=== PATIENT | female | born 1965 | race Caucasian/White ===

== ENCOUNTER 2020-03-31 13:06 | Emergency (ER) | payer MEDICAID, SELFPAY ==
[2020-03-31 13:07] VITALS: BP 134/96; PULSE 103; RESP 21; O2SAT 96; BMI 25.5
--- NOTE | 2020-03-31 13:41 | HMH.EDUTC ---
[facility] [place] Impression: Abnormal vaginal bleeding in postmenopausal patient Disposition: Home, Self-Care Condition on Discharge: Good Instructions: DI for Abnormal Uterine Bleeding Additional Instructions: You have an appointment with Dr. Costello (gynecology) on April 09 at 3 pm. Follow up with your regular doctor also. If you don't have a regular doctor then we will give you a list of doctors that are taking new patients. GO TO THE ER FOR ANY WORSENING PAIN, BLEEDING OR OTHER SYMPTOMS Prescriptions: Ondansetron [Zofran 4mg ODT] 4 mg PO Q8HP PRN #10 tab.rapdis PRN Reason: Nausea Transmission Status: Received by [id number] Doxycycline Hyclate [Doxycycline 100mg Capsule] 100 mg PO BID 10 Days #20 cap Transmission Status: Received by [id number] Referrals: Provider,Referral, [Primary Care Provider] - Time of Disposition: 14:23 Medical Decision Making - Medical Records Medical records reviewed: No: I reviewed the patient's medical records. - Wisam Inquiry Pt receiving controlled substance: No Vital Signs: 03/31/20 13:07 03/31/20 14:34 Temperature 98.0 F Temperature Source Oral Pulse Rate 103 H Pulse Rate [Radial] 103 H Respiratory Rate 21 21 Blood Pressure 134/96 H Blood Pressure [Right Arm] 134/96 H Blood Pressure Mean [Right Arm] 108 Blood Pressure Source Automatic Cuff Blood Pressure Source [Right Arm] Automatic Cuff Blood Pressure Position Sitting Blood Pressure Position [Right Arm] Sitting 02 Sat by Pulse Oximetry 96 Oxygen Delivery Method Room Air Room Air - Lab Data Lab results reviewed: Yes: I reviewed the patient's lab results. Lab Results 03/31/20 13:31: Urine Color Dark yellow, Urine Appearance Cloudy, Urine pH 5.5, Ur Specific [place] 1.030, Urine Protein 1+, Urine Glucose (UA) Negative, Urine Ketones Negative, Urine Blood Negative, Urine Nitrate Negative, Urine Bilirubin 1+ A, Urine Urobilinogen 0.2, Ur Leukocyte Esterase Negative 03/31/20 13:38: WBC 11.4 H, RBC 5.39, Hgb 13.8, Hct 42.0, MCV 78.0 L, MCH 25.6 L, MCHC 32.8, RDW 13.3, Plt Count 470 H, MPV 7.7, Neut % (Auto) 76.3, Lymph % (Auto) 18.7, [place] % (Auto) 3.4, Eos % (Auto) 1.4, Baso % (Auto) 0.3, Neut # (Auto) 8.7 H, Lymph # (Auto) 2.1, [place] # (Auto) 0.4, Eos # (Auto) 0.2, Baso # (Auto) 0.0 03/31/20 13:38: PT 9.8, INR 0.96, APTT 24.9 03/31/20 13:38: Sodium 138, Potassium 3.7, Chloride 103, Carbon Dioxide 28, Anion Gap 10.7, BUN 10, Creatinine 0.60, Estimated Creat Clear 114, Estimated GFR 104, Est GFR ( Amer) 126, Glucose 112 H, Calcium 9.8, Total Bilirubin 0.3, AST 29, ALT 15, Alkaline Phosphatase 98, Total Protein 8.0, Albumin 4.5, Globulin 3.5 H, Albumin/Globulin Ratio 1.3, TSH 0.73, HCG, Quant < 2 03/31/20 13:38: Free T4 1.19 Result diagrams: 03/31/20 13:38 03/31/20 13:38 Orders (Tests/Meds): ED MEDICATIONS Discontinued Medications Generic Name Dose Route Start Last Admin Trade Name Tariq PRN Reason Stop Dose Admin Ketorolac Tromethamine 30 mg 03/31/20 14:14 03/31/20 14:18 Toradol 60mg/2ml Vial IM 03/31/20 14:15 30 mg ONCE ONE Administration [facility] [place] - General Stated complaint: bleeding and stomach and back pain Time Seen by Provider: 03/31/20 13:45 Mode of Arrival: Ambulatory Source of Information: Patient Limitations: No Limitations Description of Symptoms (Recalled from Triage Doc. by RN): States that she began bleeding, cramping, lower back and abdomen pain. HEENT Symptoms (Recalled from RN notes): No Resp Symptoms (Recalled from RN notes): No Skin Symptoms (Recalled from RN notes): No MS Symptoms (Recalled from RN notes): No Functional Status (Recalled from RN notes): wnl - History of Present Illness Provider Complaint: She reports that 3 days ago she began having vaginal bleeding. She states that she has not had a period or any vaginal bleeding in the past 3 years. She believes that she went thru menopause then. She has
[2020-03-31 13:51] LABS: Basophils % 0.3 % (0.1-2.0); Eosinophils # 0.2 K/mm3 (0.0-0.4); Eosinophils % 1.4 % (0.1-12.0); Hemoglobin 13.8 g/dL (12.2-16.2); Lymphocytes # 2.1 K/mm3 (0.7-4.5); Lymphocytes % 18.7 % (10-50); Mean Corpuscular HGB Conc 32.8 g/dL (31.8-35.4); Mean Corpuscular Hemoglobin 25.6 pg (27.0-31.2); Mean Platelet Volume 7.7 fl (7.4-10.4); Monocytes # 0.4 K/mm3 (0.1-1.0); Monocytes % 3.4 % (1.7-9.3); Neutrophils # 8.7 K/mm3 (1.8-7.8); Neutrophils % 76.3 % (37.0-80.0); Platelet Count 470 K/mm3 (142-424); Red Blood Count 5.39 M/mm3 (4.20-5.40); Red Cell Distribution Width 13.3 % (11.5-17.5); White Blood Count 11.4 K/mm3 (4.8-10.8)
[2020-03-31 13:58] LABS: Alanine Aminotransferase 15 U/L (12-78); Albumin Level 4.5 g/dl (3.5-5.0); Albumin/Globulin Ratio 1.3 (1.1-1.8); Alkaline Phosphatase 98 U/L (38-126); Anion Gap 10.7 mEq/L (5-15); Aspartate Amino Transferase 29 U/L (14-36); Bilirubin,Total 0.3 mg/dl (0.2-1.3); Blood Urea Nitrogen 10 mg/dl (7-17); Calcium 9.8 mg/dl (8.4-10.2); Carbon Dioxide 28 mmol/L (22.0-30.0); Chloride 103 mmol/L (98-107); Creatinine Clearance Estimated 114 mL/min (50-200); Estimated Glomerular Filt Rate 104 ml/min (>60); GFR (African American) 126 ML/MIN (>60); Globulin 3.5 g/dL (1.3-3.2); Glucose 112 mg/dl (74-100); Potassium 3.7 mmoL/L (3.5-5.1); Sodium 138 mmol/L (136-145)
[2020-03-31 14:08] LABS: INR 0.96 (0.9-1.1); Prothrombin Time 9.8 seconds (9.4-11.8)
[2020-03-31 14:09] LABS: Activated Partial Thrombo Time 24.9 seconds (23.6-34.0)
[2020-03-31 14:17] LABS: HCG,Quantitative < 2 mIU/ml (0-5.42)
[2020-03-31 14:28] LABS: Free T4 (Free Thyroxine) 1.19 ng/dl (0.78-2.19)
[2020-03-31 14:29] LABS: Thyroid Stimulating Hormone 0.73 uIU/mL (0.465-4.68)
[2020-03-31 14:34] VITALS: BP 134/96; PULSE 103; RESP 21; TEMP 36.7; O2SAT 96
[2020-03-31 14:54] LABS: Apearance,Urine Cloudy (Clear); Color,Urine Dark Yellow (Yellow); PH,Urine 5.5 (5.0-8.5)
[2020-03-31 14:55] LABS: Bilirubin,Urine 1+ (Negative); Blood, Urine Negative (Negative); Glucose,Urine (UA) Negative (Negative); Ketones,Urine Negative (Negative); Protein,Urine 1+ (Negative); UTC Leukocyte Esterase,Urine Negative (Negative); UTC Nitrate,Urine Negative (Negative); Urobilinogen,Urine 0.2 EU/dl (0.2)
[2020-04-02 23:12] LABS: Neisseria gonorrhoeae, NAA Negative (Negative)
== END 2020-03-31 14:35 | disposition home or self-care (01) ==
PROVIDERS: Emergency Provider Nurse Practitioner Family
DX: N95.0 Postmenopausal bleeding (principal)
CPT/HCPCS: 80053; 81003; 84439; 84443; 84702; 85025; 85610; 85730; 87491; 87591; 96372; 99202

== ENCOUNTER → 2020-05-13 12:51 | Outpatient (CLI) | payer MEDICAID, SELFPAY ==
--- NOTE | 2020-05-13 12:52 | MM_ITS ---
PROCEDURE: MM DIG SCREENING MAMM BI W/CAD Digital Breast Tomosynthesis Included CLINICAL INDICATION: screening There is no personal or family history of breast cancer. COMPARISON: The patient had previous mammograms more than 10 years ago and they are not available for review TECHNIQUE: Standard CC and MLO images and 3D Tomosynthesis was obtained. R2 CAD reviewed. FINDINGS: Moderate diffuse fibroglandular densities are seen in both breasts and the findings of bilateral and symmetrical. There is a pacemaker device projecting over the axilla of the left breast. There is no suspicious lesion in either breast and no suspicious microcalcifications. IMPRESSION: Moderate breast density with no suspicious lesions seen BI-RAD Category: 2 Benign Finding(s) FOLLOW-UP: 1YR 1 Year Follow-up (A letter has been sent to the patient regarding results of the study.) Dictated by: Dr. Kyle Shafer MD 05/15/2020 13:[address] Kyle Shafer MD in [place] 05/15/2020 13:23
== END ==
PROVIDERS: PCP Emergency Medicine; Visit Provider Emergency Medicine
DX: Z12.31 Encounter for screening mammogram for malignant neoplasm of breast (principal)
CPT/HCPCS: 77063; 77067

== ENCOUNTER → 2020-06-10 13:19 | Outpatient (CLI) | payer MEDICAID, SELFPAY ==
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
== END ==
PROVIDERS: PCP Emergency Medicine; Visit Provider Orthopaedic Surgery
DX: M25.562 Pain in left knee (principal)
CPT/HCPCS: 73564

== ENCOUNTER 2020-06-22 09:31 | Emergency (ER) | payer MEDICAID, SELFPAY ==
[2020-06-22 09:32] VITALS: BP 167/93; PULSE 86; RESP 18; TEMP 36.9; O2SAT 98; BMI 24.9
--- NOTE | 2020-06-22 09:48 | XR_ITS ---
PROCEDURE: XR CHEST 2V CLINICAL HISTORY: fever Fever and weakness COMPARISON: CR CXR CHEST(2 VIEWS-NOT PORTABLE) from 01/13/2015 FINDINGS: The cardiomediastinal silhouette and pulmonary vascularity are within normal limits. Bipolar pacemaker is present from left subclavian approach. Lungs are clear. There is an SVC filter present. No acute bony abnormalities. IMPRESSION: No acute findings. Dictated b Rubens Wallace MD 06/22/2020 10:58 Rubens Wallace MD in [place] 06/22/2020 10:58
--- NOTE | 2020-06-22 09:59 | CT_ITS ---
PROCEDURE: CT HEAD/BRAIN WO CON CLINICAL INDICATION: syncope COMPARISON: No exams were available for comparison TECHNIQUE: Axial images obtained. All CT scans at the facility use one or more dose reduction, viz: automated exposure control, ma/kV adjustment per patient size (including targeted exams where dose is matched to indication, i.e. head), or iterative reconstruction technique. FINDINGS: No midline shift, mass effect, intracranial hemorrhage, hydrocephalus, or extra-axial fluid collection is evident. Artifact is present in the right occipital region and temporal area from patient's earring for which she was unable to remove. The calvarium has an unremarkable appearance. No mastoid effusion. Mucosal thickening involves the ethmoid sinus on the left and the right aspect of the sphenoid sinus. IMPRESSION: No acute intracranial finding. Sinus disease Dictated b Rubens Wallace MD 06/22/2020 10:47 Rubens Wallace MD in [place] 06/22/2020 10:47
--- NOTE | 2020-06-22 10:03 | PC.NURSE ---
notified rad of ct order, spoke with lavonne
[2020-06-22 10:23] LABS: Microscopic, Urine URINE MICROSCOPIC (MICROSCOPIC)
[2020-06-22 10:25] LABS: Basophils % 0.7 % (0.1-2.0); Eosinophils # 0.2 K/mm3 (0.0-0.4); Eosinophils % 3.7 % (0.1-12.0); Hematocrit 43.6 % (37.0-47.0); Lymphocytes # 1.8 K/mm3 (0.7-4.5); Lymphocytes % 28.4 % (10-50); Mean Corpuscular HGB Conc 34.3 g/dL (31.8-35.4); Mean Corpuscular Hemoglobin 26.6 pg (27.0-31.2); Mean Corpuscular Volume 77.4 fl (81-99); Mean Platelet Volume 7.4 fl (7.4-10.4); Monocytes # 0.3 K/mm3 (0.1-1.0); Monocytes % 4.2 % (1.7-9.3); Neutrophils # 4.1 K/mm3 (1.8-7.8); Platelet Count 379 K/mm3 (142-424); Red Blood Count 5.63 M/mm3 (4.20-5.40); Red Cell Distribution Width 13.3 % (11.5-17.5); White Blood Count 6.4 K/mm3 (4.8-10.8)
[2020-06-22 10:27] LABS: Appearance,Urine SL CLOUDY (Clear); Bilirubin,Urine Negative (Negative); Blood, Urine Negative (Negative); Color,Urine YELLOW (Yellow); Glucose,Urine (UA) Negative (Negative); Ketones,Urine Negative (Negative); Leukocyte Esterase,Urine Negative (Negative); Nitrate,Urine Negative (Negative); Protein,Urine Negative (Negative); Specific Gravity, Urine 1.025 (1.005-1.030); Urobilinogen,Urine 0.2 EU/dl (0.2)
[2020-06-22 10:29] LABS: Alanine Aminotransferase 36 U/L (12-78); Albumin Level 4.9 g/dl (3.5-5.0); Albumin/Globulin Ratio 1.3 (1.1-1.8); Alkaline Phosphatase 118 U/L (38-126); Anion Gap 16.5 mEq/L (5-15); Aspartate Amino Transferase 40 U/L (14-36); Bilirubin,Total 0.8 mg/dl (0.2-1.3); Blood Urea Nitrogen 15 mg/dl (7-17); Calcium 10.2 mg/dl (8.4-10.2); Carbon Dioxide 27 mmol/L (22.0-30.0); Chloride 100 mmol/L (98-107); Creatinine Clearance Estimated 111 mL/min (50-200); Estimated Glomerular Filt Rate 104 ml/min (>60); GFR (African American) 126 ML/MIN (>60); Globulin 3.8 g/dL (1.3-3.2); Glucose 139 mg/dl (74-100); Lactic Acid 1.5 mmol/L (0.7-2.1); Potassium 3.5 mmoL/L (3.5-5.1); Sodium 140 mmol/L (136-145); Total Protein,Serum 8.7 g/dl (6.3-8.2)
--- NOTE | 2020-06-22 10:29 | HMH.EDNVD ---
ED Disposition Clinical Impression: Gastroenteritis Disposition: Home, Self-Care Condition on Discharge: Good Instructions: DI for Diarrhea and Traveler's Diarrhea -- Adult, DI for Diarrhea and Traveler's Diarrhea -- Child, DI for Nausea -- Adult, DI for Nausea -- Child Referrals: Darrell Magallon MD [Primary Care Provider] - - Critical Care Critical Care Time: No Attestation: On 06/22/20, the high probability of a clinically significant, sudden or life threatening deterioration of the following system(s) required my full and direct attention, intervention and personal management. The time I documented below is in addition to time spent performing reported procedures but includes the following listed in this critical care notation. Medical Decision Making - Medical Records Medical records reviewed: Yes: I reviewed the patient's medical records. - Wisam Inquiry Pt receiving controlled substance: No Vital Signs: 06/22/20 09:32 Temperature 98.4 F Temperature Source Oral Pulse Rate [Right] 86 Respiratory Rate 18 Blood Pressure [Right Arm] 167/93 H Blood Pressure Mean [Right Arm] 117 02 Sat by Pulse Oximetry 98 - Lab Data Lab results reviewed: Yes: I reviewed the patient's lab results. Lab Results 06/22/20 10:10: WBC 6.4, RBC 5.63 H, Hgb 15.0, Hct 43.6, MCV 77.4 L, MCH 26.6 L, MCHC 34.3, RDW 13.3, Plt Count 379, MPV 7.4, Neut % (Auto) 63.0, Lymph % (Auto) 28.4, [place] % (Auto) 4.2, Eos % (Auto) 3.7, Baso % (Auto) 0.7, Neut # (Auto) 4.1, Lymph # (Auto) 1.8, [place] # (Auto) 0.3, Eos # (Auto) 0.2, Baso # (Auto) 0.0 06/22/20 10:10: Sodium 140, Potassium 3.5, Chloride 100, Carbon Dioxide 27, Anion Gap 16.5 H, BUN 15, Creatinine 0.60, Estimated Creat Clear 111, Estimated GFR 104, Est GFR ( Amer) 126, Glucose 139 H, Calcium 10.2, Total Bilirubin 0.8, AST 40 H, ALT 36, Alkaline Phosphatase 118, Total Protein 8.7 H, Albumin 4.9, Globulin 3.8 H, Albumin/Globulin Ratio 1.3 06/22/20 10:10: Lactate 1.5 06/22/20 10:13: Urine Color Yellow, Urine Appearance Sl cloudy, Urine pH 6.0, Ur Specific [place] 1.025, Urine Protein Negative, Urine Glucose (UA) Negative, Urine Ketones Negative, Urine Blood Negative, Urine Nitrate Negative, Urine Bilirubin Negative, Urine Urobilinogen 0.2, Ur Leukocyte Esterase Negative, Urine RBC Occasional, Urine WBC Occasional, Ur Squamous Epith Cells 10-20, Urine Bacteria Trace, Urine Mucus 1+ Result diagrams: 06/22/20 10:10 06/22/20 10:10 Orders (Tests/Meds): ED MEDICATIONS Discontinued Medications Generic Name Dose Route Start Last Admin Trade Name Freq PRN Reason Stop Dose Admin Sodium Chloride 1,000 mls @ 999 mls/hr 06/22/20 10:00 06/22/20 10:19 Sod Chlor 0.9% 1000ml Bag IV 06/22/20 11:00 999 mls/hr .Q1H1M MARLON Administration Ondansetron HCl 4 mg 06/22/20 09:48 06/22/20 10:19 Zofran 4mg/2ml Vial IV 06/22/20 09:49 4 mg ONCE ONE Administration ORDERS Category Date Time Status Coronavirus 19 Swab (OUTPT) Routine Lab 06/22/20 10:10 Received Blood Culture Stat Micro 06/22/20 10:10 Received Nausea/Vomiting/Diarrhea HPI - General Chief complaint: Nausea/Vomiting/Diarrhea Stated complaint: fever vomiting Time Seen by Provider: 06/22/20 10:29 Mode of Arrival: Ambulatory Source of Information: Patient Limitations: No Limitations Description of Symptoms (Recalled from ER Triage Doc. by RN): C/O NVD, fever, body aches, weakness and fatigued for 3 days. - History of Present Illness HPI Narrative: 54-year-old female presents with headache nausea and vomiting diarrhea for 2 days and also body aches and low-grade fever. Patient denies any other acute symptoms. Patient states this headache feels like a headache that she is had from previous stroke. But the body aches nausea vomiting diarrhea or something that is new. Patient denies any other acute symptoms. Also denies any neurological deficits also states that 3 days ago she did get hepatitis A vaccin
[2020-06-22 10:40] LABS: Bacteria,Urine Trace /lpf; Mucus,Urine 1+ /lpf; RBC,Urine Occasional #/hpf (0-3); WBC,Urine Occasional #/hpf (0-3)
[2020-06-22 11:28] VITALS: BP 133/89; PULSE 92; RESP 18; TEMP 36.6; O2SAT 100
== END 2020-06-22 11:29 | disposition home or self-care (01) ==
PROVIDERS: Emergency Provider Family Medicine; PCP Emergency Medicine
DX: K52.9 Noninfective gastroenteritis and colitis, unspecified (principal); Z95.0 Presence of cardiac pacemaker; Z88.5 Allergy status to narcotic agent; G43.709 Chronic migraine without aura, not intractable, without status migrainosus; Z87.891 Personal history of nicotine dependence
CPT/HCPCS: 70450; 71046; 80053; 81001; 83605; 85025; 87040; 96365; 96375; 99284; J2405; U0003

== ENCOUNTER 2020-07-28 20:33 | Emergency (ER) | payer MEDICAID, SELFPAY ==
[2020-07-28 20:33] VITALS: BP 127/84; PULSE 84; RESP 16; TEMP 36.8; O2SAT 100; BMI 24.7
--- NOTE | 2020-07-28 20:48 | XR_ITS ---
PROCEDURE: XR CHEST 2V CLINICAL HISTORY: SOA Shortness of air COMPARISON: CR CXR CHEST(2 VIEWS-NOT PORTABLE) from 01/13/2015 CR XR CHEST 2V from 06/22/[address] ANGIO CHEST from 07/28/2020 FINDINGS: Normal heart size. Bipolar pacemaker is present from left subclavian approach. There is a vascular stent overlying the SVC in the right hilar region. Minimal atelectatic changes noted in the lung bases. Upper lobes are clear. No acute bony abnormalities. IMPRESSION: Minimal atelectatic changes in the lung bases otherwise negative Dictated by: Rubens Wallace MD 07/29/2020 06:26 Rubens Wallace MD in [place] 07/29/2020 06:26
--- NOTE | 2020-07-28 20:48 | CT_ITS ---
PROCEDURE: CT ANGIO CHEST CLINCIAL INDICATION: right sided chest pain Right-sided chest pain worse with breathing COMPARISON: No exams were available for comparison TECHNIQUE: IV Contrast: 70ML OPTIRAY 350 Axial images obtained with sagittal and coronal reformats. All CT scans at the facility use one or more dose reduction, viz: automated exposure control, ma/kV adjustment per patient size (including targeted exams where dose is matched to indication, i.e. head), or iterative reconstruction technique. FINDINGS: No evidence of aortic aneurysm or dissection. No evidence of pulmonary embolus. There is a vascular stent in the right superior vena cava which appears patent. Pacemaker is present from left subclavian approach. There it appears to be at an anomalous vessel in the left apex medially traversing posterior to the descending thoracic aorta and could be due to a prominent collateral vein. CT a chest with delayed images may confirm. There are atelectatic changes or scarring in the left lower lobe. Minimal atelectasis right lower lobe. No acute bony findings. IMPRESSION: 1. No evidence of pulmonary embolus or aortic aneurysm or dissection. 2. Superior vena cava stent in place. 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 Left lower lobe atelectatic change versus scarring Dictated by: Rubens Wallace MD 07/29/2020 06:42 Rubens Wallace MD in [place] 07/29/2020 06:42
--- NOTE | 2020-07-28 20:57 | ECG_ITS ---
APPROVED REPORT Exam: Resting ECG HR:76 bpm ECG Measurements Heart Rate 76 AXES MI 184 P 53 QRSd 78 QRS 4 QT 366 T 21 QTc 411 <Conclusion> Normal sinus rhythm Possible Left atrial enlargement Incomplete RBBB Borderline ECG Electronically signed by : Caleb Abernathy, 07/31/2020 13:05:33
[2020-07-28 21:00] VITALS: BP 132/84; PULSE 89; RESP 17; O2SAT 99
[2020-07-28 21:01] LABS: Basophils # 0.1 K/mm3 (0-0.2); Basophils % 0.5 % (0.1-2.0); Eosinophils # 0.3 K/mm3 (0.0-0.4); Eosinophils % 2.4 % (0.1-12.0); Hematocrit 38.1 % (37.0-47.0); Hemoglobin 12.7 g/dL (12.2-16.2); Lymphocytes # 1.7 K/mm3 (0.7-4.5); Lymphocytes % 15.6 % (10-50); Mean Corpuscular HGB Conc 33.4 g/dL (31.8-35.4); Mean Corpuscular Volume 80.8 fl (81-99); Mean Platelet Volume 7.6 fl (7.4-10.4); Monocytes # 0.6 K/mm3 (0.1-1.0); Monocytes % 5.4 % (1.7-9.3); Neutrophils # 8.1 K/mm3 (1.8-7.8); Platelet Count 371 K/mm3 (142-424); Red Blood Count 4.72 M/mm3 (4.20-5.40); Red Cell Distribution Width 13.6 % (11.5-17.5); White Blood Count 10.7 K/mm3 (4.8-10.8)
[2020-07-28 21:05] LABS: Chloride 103 mmol/L (98-107); Potassium 3.3 mmoL/L (3.5-5.1); Sodium 144 mmol/L (136-145)
[2020-07-28 21:08] LABS: Alanine Aminotransferase 19 U/L (12-78); Albumin Level 4.4 g/dl (3.5-5.0); Albumin/Globulin Ratio 1.3 (1.1-1.8); Alkaline Phosphatase 120 U/L (38-126); Anion Gap 13.3 mEq/L (5-15); Aspartate Amino Transferase 30 U/L (14-36); Bilirubin,Total 0.4 mg/dl (0.2-1.3); Blood Urea Nitrogen 10 mg/dl (7-17); Carbon Dioxide 31 mmol/L (22.0-30.0); Creatinine Clearance Estimated 106 mL/min (50-200); Estimated Glomerular Filt Rate 104 ml/min (>60); GFR (African American) 126 ML/MIN (>60); Globulin 3.5 g/dL (1.3-3.2); Total Protein,Serum 7.9 g/dl (6.3-8.2)
[2020-07-28 21:09] LABS: Calcium 9.4 mg/dl (8.4-10.2); Glucose 120 mg/dl (74-100)
--- NOTE | 2020-07-28 21:13 | HMH.EDGENADL ---
ED Disposition Clinical Impression: Pleurisy Disposition: Home, Self-Care Condition on Discharge: Good Instructions: DI for Pleurisy Additional Instructions: use meds and see pcp for follow up Prescriptions: levoFLOXacin [Levaquin 500mg tab] 500 mg PO DAILY #7 tab Transmission Status: Pending to [facility] predniSONE [Prednisone 20mg Tab] 20 mg PO BID #10 tab Transmission Status: Pending to [facility] Referrals: Darrell Magallon MD [Primary Care Provider] - - Critical Care Critical Care Time: No Attestation: On 07/28/20, the high probability of a clinically significant, sudden or life threatening deterioration of the following system(s) required my full and direct attention, intervention and personal management. The time I documented below is in addition to time spent performing reported procedures but includes the following listed in this critical care notation. Medical Decision Making - Medical Records Medical records reviewed: Yes: I reviewed the patient's medical records. - Wisam Inquiry Pt receiving controlled substance: No Vital Signs: 07/28/20 20:33 07/28/20 21:00 07/28/20 21:49 Temperature 98.2 F Temperature Source Oral Pulse Rate [Right] 84 89 74 Respiratory Rate 16 17 16 Blood Pressure [Right Arm] 127/84 132/84 157/85 H Blood Pressure Mean [Right Arm] 98 100 109 Blood Pressure Source [Right Arm] Automatic Cuff Automatic Cuff Automatic Cuff Blood Pressure Position [Right Arm] Sitting Supine Sitting 02 Sat by Pulse Oximetry 100 99 98 Oxygen Delivery Method Room Air Room Air Room Air - Lab Data Lab results reviewed: Yes: I reviewed the patient's lab results. Lab Results 07/28/20 20:50: WBC 10.7, RBC 4.72, Hgb 12.7, Hct 38.1, MCV 80.8 L, MCH 27.0, MCHC 33.4, RDW 13.6, Plt Count 371, MPV 7.6, Neut % (Auto) 76.0, Lymph % (Auto) 15.6, [place] % (Auto) 5.4, Eos % (Auto) 2.4, Baso % (Auto) 0.5, Neut # (Auto) 8.1 H, Lymph # (Auto) 1.7, [place] # (Auto) 0.6, Eos # (Auto) 0.3, Baso # (Auto) 0.1 07/28/20 20:50: Sodium 144, Potassium 3.3 L, Chloride 103, Carbon Dioxide 31 H, Anion Gap 13.3, BUN 10, Creatinine 0.60, Estimated Creat Clear 106, Estimated GFR 104, Est GFR ( Amer) 126, Glucose 120 H, Calcium 9.4, Total Bilirubin 0.4, AST 30, ALT 19, Alkaline Phosphatase 120, Troponin I < 0.01, Total Protein 7.9, Albumin 4.4, Globulin 3.5 H, Albumin/Globulin Ratio 1.3 Result diagrams: 07/28/20 20:50 07/28/20 20:50 Orders (Tests/Meds): ED MEDICATIONS Discontinued Medications Generic Name Dose Route Start Last Admin Trade Name Dennisq PRN Reason Stop Dose Admin Ioversol 70 ml 07/28/20 21:40 07/28/20 21:42 Rad-Optiray 350 100ml Vial IV 07/28/20 21:41 70 ml ONCE ONE Administration Protocol Sodium Chloride 50 ml 07/28/20 21:40 07/28/20 21:42 Rad-Ns 50ml Vial IV 07/28/20 21:41 50 ml ONCE ONE Administration Sodium Chloride 10 ml 07/28/20 21:40 07/28/20 21:42 Rad-Saline Flush 10ml Syringe IV 07/28/20 21:41 10 ml ONCE ONE Administration ORDERS Category Date Time Status CT Chest w/PE protocol [CT angio chest] Stat Cat Scan 07/28/20 20:48 Taken XR chest 2V Stat Exams 07/28/20 20:48 Taken Troponin I Q3H Lab 07/28/20 23:49 Ordered Troponin I Q3H Lab 07/29/20 02:49 Ordered - Radiology Data #1 Image(s): Chest Image Reviewed: Yes I reviewed the patient's radiology image Preliminary Findings: Normal/NAD - CT Data CT Scan: Chest Time Received: 22:[address] Reviewed: Yes: I have viewed the radiologist's interpretation Preliminary Findings: Normal/NAD - ECG Data Tracing #1 Normal Sinus Rhythm: Yes Ischemic changes: non-specific ST-T wave changes General Adult HPI - General Chief complaint: PAIN Stated complaint: hurts when breathing Time Seen by Provider: 07/28/20 20:50 Mode of Arrival: Ambulatory Source of Information: Patient, Medical Record Limitations: No Limitations Description of Symptoms (R
[2020-07-28 21:25] LABS: Troponin I < 0.01 ng/ml (0.00-0.034)
--- NOTE | 2020-07-28 21:48 | PC.NURSE ---
Pt returned from CT scan
[2020-07-28 21:49] VITALS: BP 157/85; PULSE 74; RESP 16; O2SAT 98
[2020-07-28 22:35] VITALS: BP 122/70; PULSE 70; RESP 16; TEMP 36.8; O2SAT 98
== END 2020-07-28 22:36 | disposition home or self-care (01) ==
PROVIDERS: Emergency Provider Emergency Medicine; PCP Emergency Medicine
DX: R09.1 Pleurisy (principal); R01.1 Cardiac murmur, unspecified; Z95.0 Presence of cardiac pacemaker; G43.709 Chronic migraine without aura, not intractable, without status migrainosus; F19.11 Other psychoactive substance abuse, in remission; Z79.899 Other long term (current) drug therapy
CPT/HCPCS: 71046; 71275; 80053; 84484; 85025; 93005; 96374; 96375; 99284; Q9967

== ENCOUNTER 2020-12-29 14:43 | Emergency (ER) | payer MEDICAID, SELFPAY ==
[2020-12-29 14:50] VITALS: BP 147/72; PULSE 88; RESP 20; TEMP 36.9; O2SAT 97; BMI 24.4
--- NOTE | 2020-12-29 15:07 | HMH.EDUTC ---
[facility] [place] Clinical Impression: Bronchitis Disposition: Home, Self-Care Condition on Discharge: Good Instructions: Acute Bronchitis, DI for Cough -- Adult Additional Instructions: ? Start antibiotic today. Be sure to complete entire prescription even if feeling better ? Monitor temp. Tylenol every 4 hours as needed and / or ibuprofen every 6 hours as needed ( As long as your primary care physician has told you that it ok to take both. For fever/aches/pains ER if no less than 101 despite Tylenol or Motrin ? Humidifier/vaporizer or hot steamy shower ? Inhaler every 4-6 hours as needed like we discussed. If unsure how to use it, ask pharmacist to demonstrate how. Should help open airways and improve cough, wheezing, and shortness of breath ? Mucinex during the day for your cough and cough suppressant only at night. Be sure to drink lots of water. Insurance may not cover a prescriptions for mucinex. Might be cheaper to get 400mg tablets and take 2 tablet in the morning, mid-day and evening with lots of water. Follow up IMMEDIATELY for new or worsening of symptoms OR no noticeable improvement over the next 48-72 hours. 911 immediately for any life threatening symptoms such as chest pain or difficulty breathing Prescriptions: Albuterol Sulfate [Proventil-HFA 90mcg/puff Inh] 1 - 2 puffs IH Q4HP PRN #1 inh PRN Reason: Shortness Of Breath Transmission Status: Received by [facility] Azithromycin [Z-Ernie 250mg Tab] 250 mg PO DIRECTED #6 tab Transmission Status: Received by [facility] Referrals: Darrell Magallon MD [Primary Care Provider] - As needed Time of Disposition: 15:22 Medical Decision Making - Wisam Inquiry Pt receiving controlled substance: No Wisam was queried for this patient: No Vital Signs: 12/29/20 14:50 12/29/20 15:24 Temperature 98.4 F 98.4 F Temperature Source Oral Pulse Rate 88 Pulse Rate [Right Brachial] 88 Respiratory Rate 20 20 Blood Pressure 147/72 H Blood Pressure [Right Arm] 147/72 H Blood Pressure Mean [Right Arm] 97 Blood Pressure Source [Right Arm] Automatic Cuff Blood Pressure Position [Right Arm] Sitting 02 Sat by Pulse Oximetry 97 Oxygen Delivery Method Room Air Medical Decision Narrative: Discussed CXR with patient and declined at this time discussed COVID test and she declined, states that she knows its bronchitis and has not been around anyone with COVID Patient states that she has taken azithromycin before without reaction or complications [facility] [place] HPI - General Stated complaint: cough, head congestion Time Seen by Provider: 12/29/20 15:07 Mode of Arrival: Ambulatory Source of Information: Patient Limitations: No Limitations Description of Symptoms (Recalled from Triage Doc. by RN): PATIENT C/O PRODUCTIVE COUGH WITH GREEN SPUTUM X 4 DAYS HEENT Symptoms (Recalled from RN notes): No Resp Symptoms (Recalled from RN notes): Yes Skin Symptoms (Recalled from RN notes): No MS Symptoms (Recalled from RN notes): No Functional Status (Recalled from RN notes): WNL - History of Present Illness Provider Complaint: Patient states that she gets bronchitis every year and she has been outside shoveling snow States that she started with cough and chest congestion and about 2-3 days ago and has continued States that she wanted to come in and get treated before it turned into pneumonia States that she has not had any shortness of breath yet and feels like she is having sinus pressure also so she came in to get checked - Related Data Home Medications Medication Instructions Recorded Confirmed erenumab-aooe 140 mg/mL ml SQ 05/05/20 10/13/20 subcutaneous auto-injector levocetirizine 5 mg tablet 5 mg PO tab 05/05/20 10/13/20 nitroglycerin 0.4 mg sublingual 0.4 mg SUBLINGUAL tab 05/05/20 10/13/20 tablet promethazine 12.5 mg tablet 12.5 mg PO tab 05/05/20 10/13/20 ubrogepant 50 mg tablet 50 mg PO .prn tab 05/05/20 10/13/20 Previous Rx's Medicat
[2020-12-29 15:24] VITALS: BP 147/72; PULSE 88; RESP 20; TEMP 36.9; O2SAT 97
== END 2020-12-29 15:27 | disposition home or self-care (01) ==
PROVIDERS: Emergency Provider Nurse Practitioner; PCP Emergency Medicine
DX: J20.9 Acute bronchitis, unspecified (principal); G43.709 Chronic migraine without aura, not intractable, without status migrainosus; Z95.0 Presence of cardiac pacemaker; Z86.73 Personal history of transient ischemic attack (TIA), and cerebral infarction without residual deficits; Z87.891 Personal history of nicotine dependence; Z79.899 Other long term (current) drug therapy
CPT/HCPCS: 99202; G0463

== ENCOUNTER 2021-08-04 09:59 | Emergency (ER) | payer MEDICAID, SELFPAY ==
[2021-08-04 10:16] VITALS: BP 140/112; PULSE 82; RESP 19; TEMP 37; O2SAT 99; BMI 21.6
--- NOTE | 2021-08-04 10:29 | HMH.EDUTC ---
[facility] [place] Condition [place] Dis[place]: Good <Levi Saenz - Last Filed: 08/04/21 12:14> Condition on Discharge: Good Time of Disposition: 10:33 <TalleyNicole connell - Last Filed: 08/04/21 12:57> Clinical Impression: Nonspecific chest pain, Anxiety Disposition: Home, Self-Care Instructions: DI for Atypical Chest Pain Prescriptions: methocarbamoL [Methocarbamol] 750 mg PO QID 7 Days #28 tab Transmission Status: Received by [facility] Referrals: Roberta Dallas PA [Primary Care Provider] - Forms: Work/School Release Medical Decision Making - Medical Records Medical records reviewed: Yes: I reviewed the patient's medical records. - Lab Data Result diagrams: 08/04/21 11:19 08/04/21 11:19 - Radiology Data #1 Image(s): Chest Image Reviewed: Yes I reviewed the patient's radiology results, Yes I reviewed the patient's radiology image, Yes I have reviewed radiologist's interpretation Preliminary Findings: Normal/NAD - ECG Data Tracing #1 ECG initial impression date: 08/04/21 ECG initial impression time: 10:49 - Reevaluation(s) Time: 12:15 <Levi Saenz - Last Filed: 08/04/21 12:14> - Wisma Inquiry Pt receiving controlled substance: No Wisam was queried for this patient: No - Lab Data Lab results reviewed: Yes: I reviewed the patient's lab results. Result diagrams: 08/04/21 11:19 08/04/21 11:19 <TalleyNicole Santizo - Last Filed: 08/04/21 12:57> Vital Signs: 08/04/21 10:16 08/04/21 10:52 Temperature 98.6 F 98 F Temperature Source Oral Oral Pulse Rate [Left] 82 70 Respiratory Rate 19 16 Blood Pressure [Right Arm] 140/112 H 172/96 H Blood Pressure Mean [Right Arm] 121 121 02 Sat by Pulse Oximetry 99 100 Oxygen Delivery Method Room Air - Lab Data Lab Results 08/04/21 11:19: WBC 5.4, RBC 4.57, Hgb 13.1, Hct 38.6, MCV 84.4, MCH 28.7, MCHC 34.0, RDW 13.3, Plt Count 364, MPV 7.8, Neut % (Auto) 69.0, Lymph % (Auto) 24.5, Heard % (Auto) 3.8, Eos % (Auto) 1.9, Baso % (Auto) 0.9, Neut # (Auto) 3.7, Lymph # (Auto) 1.3, Heard # (Auto) 0.2, Eos # (Auto) 0.1, Baso # (Auto) 0.1 08/04/21 11:19: Sodium 142, Potassium 3.3 L, Chloride 103, Carbon Dioxide 29, Anion Gap 13.3, BUN 11, Creatinine 0.50 L, Estimated Creat Clear 113, Estimated GFR 128, Est GFR ( Amer) 154, Glucose 108 H, Calcium 9.2, Total Bilirubin 0.2, AST 35, ALT 19, Alkaline Phosphatase 88, Troponin I < 0.01, Total Protein 7.4, Albumin 4.4, Globulin 3.0, Albumin/Globulin Ratio 1.5 Orders (Tests/Meds): ED MEDICATIONS Generic Name Dose Route Start Last Admin Trade Name Freq PRN Reason Stop Dose Admin Sodium Chloride 10 ml 08/04/21 10:46 Sodium Chloride 0.9% 10ml Vial IV 09/03/21 10:45 NEEDED PRN to Dilute Lorazepam inj Discontinued Medications Generic Name Dose Route Start Last Admin Trade Name Freq PRN Reason Stop Dose Admin Lorazepam 1 mg 08/04/21 10:46 08/04/21 11:12 Lorazepam 2mg/Ml Vial IV 08/04/21 10:47 1 mg ONCE ONE Administration Morphine Sulfate 4 mg 08/04/21 12:13 08/04/21 12:35 Morphine 4mg/Ml Syringe IV 08/04/21 12:14 4 mg ONCE ONE Administration ORDERS Category Date Time Status Troponin I Q3H Lab 08/04/21 14:00 Ordered Troponin I Q3H Lab 08/04/21 17:00 Ordered - ECG Data Tracing #1 Normal ventricular rate of 67 bpm, ID interval 194 ms, normal QTC. Sinus rhythm with nonspecific changes (Levi Saenz) - Reevaluation(s) Reevaluation #1: On reevaluation, patient is feeling much better. Pain is improved. Given the subacute nature and negative troponin without any obvious ST elevation, do not believe is cardiac in nature. Patient is very anxious on initial exam due to getting into a verbal altercation with her prior to arrival. She states she is feeling fine at this point. Patient is to follow-up with her primary care physician within 48 hours. Strict return precautions. Verbalized understanding. (Ryan
--- NOTE | 2021-08-04 10:46 | XR_ITS ---
PROCEDURE: XR CHEST PORTABLE CLINICAL HISTORY: cough COMPARISON: CR CXR CHEST(2 VIEWS-NOT PORTABLE) from 01/13/2015 CR XR CHEST 2V from 06/22/2020 CR XR CHEST 2V from 07/28/[address] ANGIO CHEST from 07/28/2020 FINDINGS: There is a bipolar pacemaker from left subclavian approach. Normal heart size. The lungs are clear without infiltrates, suspicious nodules, or pleural effusions. No acute bony abnormalities. There are old right-sided rib fractures. IMPRESSION: No acute findings. Dictated by: Rubens Wallace MD 08/04/2021 11:10 Rubens Wallace MD in [facility] 08/04/2021 11:10
--- NOTE | 2021-08-04 10:49 | ECG_ITS ---
APPROVED REPORT Exam: Resting ECG HR:67 bpm ECG Measurements Heart Rate 67 AXES TX 194 P 63 QRSd 74 QRS -7 QT 410 T 45 QTc 433 Conclusion Normal sinus rhythm Possible Left atrial enlargement Left ventricular hypertrophy Abnormal ECG Electronically signed by : Dayton Negrete MD 08/05/2021 17:29:13
[2021-08-04 10:52] VITALS: BP 172/96; PULSE 70; RESP 16; TEMP 36.6; O2SAT 100; BMI 21.6
[2021-08-04 11:32] LABS: Chloride 103 mmol/L (98-107); Sodium 142 mmol/L (136-145)
[2021-08-04 11:33] LABS: Potassium 3.3 mmoL/L (3.5-5.1)
[2021-08-04 11:34] LABS: Basophils # 0.1 K/mm3 (0-0.2); Basophils % 0.9 % (0.1-2.0); Eosinophils # 0.1 K/mm3 (0.0-0.4); Eosinophils % 1.9 % (0.1-12.0); Hematocrit 38.6 % (37.0-47.0); Hemoglobin 13.1 g/dL (12.2-16.2); Lymphocytes # 1.3 K/mm3 (0.7-4.5); Lymphocytes % 24.5 % (10-50); Mean Corpuscular Hemoglobin 28.7 pg (27.0-31.2); Mean Corpuscular Volume 84.4 fl (81-99); Mean Platelet Volume 7.8 fl (7.4-10.4); Monocytes # 0.2 K/mm3 (0.1-1.0); Monocytes % 3.8 % (1.7-9.3); Neutrophils # 3.7 K/mm3 (1.8-7.8); Platelet Count 364 K/mm3 (142-424); Red Blood Count 4.57 M/mm3 (4.20-5.40); Red Cell Distribution Width 13.3 % (11.5-17.5); White Blood Count 5.4 K/mm3 (4.8-10.8)
[2021-08-04 11:35] LABS: Alanine Aminotransferase 19 U/L (12-78); Albumin Level 4.4 g/dl (3.5-5.0); Albumin/Globulin Ratio 1.5 (1.1-1.8); Alkaline Phosphatase 88 U/L (38-126); Anion Gap 13.3 mEq/L (5-15); Aspartate Amino Transferase 35 U/L (14-36); Bilirubin,Total 0.2 mg/dl (0.2-1.3); Blood Urea Nitrogen 11 mg/dl (7-17); Carbon Dioxide 29 mmol/L (22.0-30.0); Creatinine Clearance Estimated 113 mL/min (50-200); Estimated Glomerular Filt Rate 128 ml/min (>60); GFR (African American) 154 ML/MIN (>60); Total Protein,Serum 7.4 g/dl (6.3-8.2)
[2021-08-04 11:36] LABS: Calcium 9.2 mg/dl (8.4-10.2); Glucose 108 mg/dl (74-100)
[2021-08-04 11:51] LABS: Troponin I < 0.01 ng/ml (0.00-0.034)
[2021-08-04 13:01] VITALS: BP 145/78; PULSE 82; RESP 18; TEMP 36.6; O2SAT 98
== END 2021-08-04 13:02 | disposition home or self-care (01) ==
LOC: UTC 10:04 → ER 10:34
PROVIDERS: Emergency Provider Emergency Medicine; PCP Physician Assistant
DX: R07.9 Chest pain, unspecified (principal); R42 Dizziness and giddiness; F41.9 Anxiety disorder, unspecified; G43.709 Chronic migraine without aura, not intractable, without status migrainosus; Z87.891 Personal history of nicotine dependence; Z95.0 Presence of cardiac pacemaker; K21.9 Gastro-esophageal reflux disease without esophagitis; R01.1 Cardiac murmur, unspecified; Z79.899 Other long term (current) drug therapy
CPT/HCPCS: 71045; 80053; 84484; 85025; 93005; 96374; 96375; 99282

== ENCOUNTER → 2021-09-22 17:45 | Outpatient (CLI) | payer MEDICAID, SELFPAY ==
[2021-09-22 19:50] LABS: Amphetamine/Metha Screen,Urine Negative ng/ml (<1000)
[2021-09-22 19:51] LABS: Barbiturates Screen,Urine Negative ng/ml (<200)
[2021-09-22 19:52] LABS: Benzodiazepines Screen,Urine Negative ng/ml (<200); Cannabinoid Screen,Urine Negative ng/ml (<50)
[2021-09-22 19:53] LABS: Cocaine Screen,Urine Negative ng/ml (<300)
[2021-09-22 19:54] LABS: Methadone Screen,Urine Negative ng/ml (<300)
[2021-09-22 19:55] LABS: Opiate Screen,Urine Negative ng/ml (<300)
[2021-09-22 19:56] LABS: Phencyclidine Screen,Urine Negative ng/ml (<25)
== END ==
PROVIDERS: Visit Provider Physician Assistant
DX: R52 Pain, unspecified (principal)
CPT/HCPCS: 80305

== ENCOUNTER → 2021-10-11 17:51 | Outpatient (CLI) | payer MEDICAID, SELFPAY ==
[2021-10-11 19:51] LABS: Amphetamine/Metha Screen,Urine Negative ng/ml (<1000); Barbiturates Screen,Urine Negative ng/ml (<200)
[2021-10-11 19:52] LABS: Benzodiazepines Screen,Urine Negative ng/ml (<200); Cannabinoid Screen,Urine Negative ng/ml (<50)
[2021-10-11 19:53] LABS: Cocaine Screen,Urine Negative ng/ml (<300)
[2021-10-11 19:54] LABS: Methadone Screen,Urine Negative ng/ml (<300); Opiate Screen,Urine Negative ng/ml (<300)
[2021-10-11 19:59] LABS: Phencyclidine Screen,Urine Negative ng/ml (<25)
== END ==
PROVIDERS: Visit Provider Physician Assistant
DX: Z79.899 Other long term (current) drug therapy (principal)
CPT/HCPCS: 80305

== ENCOUNTER → 2021-11-17 10:02 | Outpatient (CLI) | payer MEDICAID, SELFPAY | PROVIDERS: PCP Emergency Medicine; Visit Provider Nurse Practitioner | DX: Z20.822 Contact with and (suspected) exposure to COVID-19 (principal) | CPT/HCPCS: C9803; U0003; U0005 ==

== ENCOUNTER → 2021-12-06 15:38 | Outpatient (CLI) | payer MEDICAID, SELFPAY ==
[2021-12-06 17:20] LABS: Amphetamine/Metha Screen,Urine Negative ng/ml (<1000)
[2021-12-06 17:21] LABS: Barbiturates Screen,Urine Negative ng/ml (<200); Benzodiazepines Screen,Urine Negative ng/ml (<200)
[2021-12-06 17:22] LABS: Cannabinoid Screen,Urine Negative ng/ml (<50)
[2021-12-06 17:23] LABS: Cocaine Screen,Urine Negative ng/ml (<300); Methadone Screen,Urine Negative ng/ml (<300)
[2021-12-06 17:24] LABS: Opiate Screen,Urine Negative ng/ml (<300)
[2021-12-06 17:26] LABS: Phencyclidine Screen,Urine Negative ng/ml (<25)
== END ==
PROVIDERS: Visit Provider Emergency Medicine
DX: Z79.899 Other long term (current) drug therapy (principal); Z86.19 Personal history of other infectious and parasitic diseases
CPT/HCPCS: 80305; 87522

== ENCOUNTER → 2021-12-09 12:01 | Outpatient (CLI) | payer MEDICAID, SELFPAY ==
[2021-12-10 11:17] LABS: Covid-19 Nasal PCR Sendout Lex NOT DETECTED
== END ==
PROVIDERS: Visit Provider Nurse Practitioner
DX: Z20.822 Contact with and (suspected) exposure to COVID-19 (principal)
CPT/HCPCS: C9803; U0004; U0005

== ENCOUNTER 2022-01-04 06:01 | Emergency (ER) | payer MEDICAID, SELFPAY ==
[2022-01-04 06:03] VITALS: BP 141/99; PULSE 70; RESP 21; TEMP 36.4; O2SAT 99; BMI 23.9
--- NOTE | 2022-01-04 06:17 | XR_ITS ---
FINAL REPORT CLINICAL HISTORY: Fall COMPARISON: August 04, 2021 FINDINGS: The heart size is normal. There is a left subclavian pacemaker. An SVC stent is present. The mediastinum is normal. There is no focal infiltrate or edema. There are no pleural effusions. There is no pneumothorax. There is no osseous abnormality. IMPRESSION: No acute cardiopulmonary process Reviewed, Interpreted and Dictated by Adrian Clay MD Transcribed by Sylvester Reyes Authenticated by Adrina Clay MD on 01/04/2022 07:34:09 AM [facility]
--- NOTE | 2022-01-04 06:17 | CT_ITS ---
FINAL REPORT TECHNIQUE: Axial images were obtained of the cervical spine by computed tomography. Coronal and sagittal reconstruction process performed. This study was performed with techniques to keep radiation doses as low as reasonably achievable (ALARA). Individualized dose reduction techniques using automated exposure control or adjustment of mA and/or kV according to the patient''s size were employed. CLINICAL HISTORY: Fall FINDINGS: Cervical vertebrae show normal height. There is moderate disc space narrowing at C4-5, C5-6, and C6-7 with anterior and posterior osteophyte formation. There is minimal spondylolisthesis of C3 on C4. The facets are properly aligned. C2-C3: No significant central canal stenosis or neural foraminal narrowing. C3-C4: No significant central canal stenosis or neural foraminal narrowing. C4-C5: Moderate endplate hypertrophy with moderate bilateral neural foraminal narrowing. C5-C6: Moderate endplate hypertrophy. Moderate to high-grade right and moderate left neural foraminal narrowing. C6-C7: Moderate to high-grade right and moderate left neural foraminal narrowing. C7-T1: No significant central canal stenosis or neural foraminal narrowing. IMPRESSION: No fracture. Degenerative disc disease most evident at C5-6 and C6-7 with moderate to high-grade right neural foraminal narrowing. Reviewed, Interpreted and Dictated by Adrian Clay MD Transcribed by Sylvester Reyes Authenticated by Adrian Clay MD on 01/04/2022 07:36:18 AM [facility]
--- NOTE | 2022-01-04 06:17 | XR_ITS ---
FINAL REPORT CLINICAL HISTORY: Fall, left clavicle/shoulder pain FINDINGS: 2 views of the left clavicle were obtained. There is no acute fracture. The joint spaces are intact. There is no soft tissue abnormality. IMPRESSION: No acute process. Reviewed, Interpreted and Dictated by Adrian Clay MD Transcribed by Sylvester Reyes Authenticated by Adrian Clay MD on 01/04/2022 07:33:[address] [facility]
--- NOTE | 2022-01-04 06:17 | XR_ITS ---
FINAL REPORT CLINICAL HISTORY: Fall FINDINGS: AP PELVIS: A single view of the pelvis was obtained. The patient is rotated to the left. There is chronic appearing healed fracture deformity of the superior right pubic ramus. There is no acute fracture or dislocation. Visualized joint spaces are normally aligned. Soft tissues are unremarkable. IMPRESSION: No acute process. Reviewed, Interpreted and Dictated by Adrian Clay MD Transcribed by Sylvester Reyes Authenticated by Adrian Clay MD on 01/04/2022 07:33:08 AM [facility]
--- NOTE | 2022-01-04 06:17 | XR_ITS ---
FINAL REPORT CLINICAL HISTORY: Fall, left shoulder/clavicle pain FINDINGS: 3 views of the left shoulder were obtained. There is no acute fracture or dislocation. There are minimal hypertrophic changes at the AC joint. There are no soft tissue abnormalities. IMPRESSION: No acute process. Reviewed, Interpreted and Dictated by Adrian Clay MD Transcribed by Sylvester Reyes Authenticated by Adrian Clay MD on 01/04/2022 07:33:40 AM [facility]
--- NOTE | 2022-01-04 06:17 | CT_ITS ---
FINAL REPORT TECHNIQUE: Axial CT images of the thoracic spine were obtained without contrast. Sagittal and coronal reformatted images were also obtained. This study was performed with techniques to keep radiation doses as low as reasonably achievable (ALARA). Individualized dose reduction techniques using automated exposure control or adjustment of mA and/or kV according to the patient's size were employed. CLINICAL HISTORY: Fall FINDINGS: There is streak artifact from pacemaker leads. There is mild thoracic scoliosis convex to the right of approximately 11?. There is no evidence of fracture. The vertebral alignment is normal. There is no evidence of significant canal stenosis. No paraspinous soft tissue abnormality is identified. IMPRESSION: No fracture or acute bony abnormality. No significant central canal stenosis. Reviewed, Interpreted and Dictated by Adrian Clay MD Transcribed by Sylvester Reyes Authenticated by Adrian Clay MD on 01/04/2022 07:34:40 AM [facility]
[2022-01-04 06:30] VITALS: BP 111/71; PULSE 68; O2SAT 99
--- NOTE | 2022-01-04 06:39 | HMH.EDFALL ---
ED Disposition Condition on Discharge: Good - Critical Care Critical Care Time: No <Darrell Magallon - Last Filed: 01/04/22 08:11> Condition on Discharge: Good - Critical Care Critical Care Time: No <Levi Saenz - Last Filed: 01/04/22 09:21> Clinical Impression: Contusion of chest wall Qualifiers: Encounter type: initial encounter Laterality: left Qualified Code(s): S20.212A - Contusion of left front wall of thorax, initial encounter Disposition: Home, Self-Care Instructions: How to Prevent Falls Referrals: Darrell Magallon MD [Primary Care Provider] - Attestation: On 01/04/22, the high probability of a clinically significant, sudden or life threatening deterioration of the following system(s) required my full and direct attention, intervention and personal management. The time I documented below is in addition to time spent performing reported procedures but includes the following listed in this critical care notation. Medical Decision Making - Medical Records Medical records reviewed: Yes: I reviewed the patient's medical records. - Wisam Inquiry Pt receiving controlled substance: No - Lab Data Lab results reviewed: Yes: I reviewed the patient's lab results. <Darrell Magallon - Last Filed: 01/04/22 08:11> - Radiology Data #1 Image(s): Chest, Shoulder, Clavicle Image Reviewed: Yes I reviewed the patient's radiology results, Yes I reviewed the patient's radiology image, Yes I have reviewed radiologist's interpretation Preliminary Findings: Normal/NAD - CT Data CT Scan: C-Spine, Chest, T-Spine Time Received: 09:[address] Reviewed: Yes: I have reviewed the patient's CT results, I have viewed the radiologist's interpretation Preliminary Findings: Normal/NAD - Reevaluation(s) Time: 09:20 <Levi Saenz - Last Filed: 01/04/22 09:21> Vital Signs: 01/04/22 06:03 01/04/22 06:30 01/04/22 07:47 Temperature 97.6 F Temperature Source Oral Pulse Rate 68 64 Pulse Rate [Right Radial] 70 Respiratory Rate 21 Blood Pressure 111/71 135/84 Blood Pressure [Right Arm] 141/99 H Blood Pressure Mean 86 Blood Pressure Mean [Right Arm] 113 Blood Pressure Source [Right Arm] Automatic Cuff Blood Pressure Position [Right Arm] Sitting 02 Sat by Pulse Oximetry 99 99 97 Oxygen Delivery Method Room Air Room Air Room Air Orders (Tests/Meds): ED MEDICATIONS Discontinued Medications Generic Name Dose Route Start Last Admin Trade Name Tariq PRN Reason Stop Dose Admin Morphine Sulfate 4 mg 01/04/22 06:20 01/04/22 06:24 Morphine 4mg/Ml Syringe IV 01/04/22 06:21 4 mg ONCE ONE Administration Ondansetron HCl 4 mg 01/04/22 06:20 01/04/22 06:24 Ondansetron 4mg/2ml Vial IV 01/04/22 06:21 4 mg ONCE ONE Administration - Reevaluation(s) Reevaluation #1: On reevaluation, patient is feeling better. Imaging was unremarkable. Patient was found with PCP in 48 hours. Given strict return precautions. Verbalized understanding. (Levi Saenz) Medical Decision Narrative: has pain ant chest -awaiting ct (Darrell Magallon) Fall HPI - General Mode of Arrival: Ambulatory Source of Information: Patient, Medical Record Limitations: No Limitations Description of Symptoms (Recalled from ER Triage Doc. by RN): pt reports falling when getting off the toilet at 11pm last night and injuring her left shoulder. She says she just couldnt take it anymore. Pt denies passing out. Denies hitting hit or neck pain. - History of Present Illness MD complaint: fall Onset (ago): hour(s) Fall from: other (off toilet) Fall witnessed: no Place fall occurred: home Loss of consciousness: none Prolonged down time: no Location of injury: chest Location of injury - extremities: Left: shoulder Severity: moderate Associated symptoms (after fall): denies <Darrell Magallon - Last Filed: 01/04/22 08:11> <Levi Saenz - Last Filed: 01/04/22 09:21> - General Chief C
--- NOTE | 2022-01-04 07:11 | CT_ITS ---
FINAL REPORT CLINICAL HISTORY: fall, right side chest pain FINDINGS: Axial images were obtained from the lung apex to the mid abdomen by computed tomography. Coronal reformatted images were obtained. This study was performed with techniques to keep radiation doses as low as reasonably achievable, (ALARA). Individualized dose reduction techniques using automated exposure control or adjustment of mA and/or kV according to the patient's size were employed. There is streak artifact from a pacemaker. An SVC stent is present. There is no axillary adenopathy. There is no hilar or mediastinal adenopathy. Heart size is normal. There is no pericardial or pleural effusion. Limited images of the upper abdomen are unremarkable. No suspicious infiltrate or nodule is identified. There is no pneumothorax. There is no acute osseous abnormality. IMPRESSION: No acute process. Reviewed, Interpreted and Dictated by Adrian Clay MD Transcribed by Sylvester Reyes Authenticated by Adrian Clay MD on 01/04/2022 08:02:37 AM [facility]
--- NOTE | 2022-01-04 07:33 | PC.NURSE ---
Radiology informed of added on CT scan
--- NOTE | 2022-01-04 07:35 | PC.NURSE ---
Patient to CT with racking technician
--- NOTE | 2022-01-04 07:44 | PC.NURSE ---
Patient back from CT
[2022-01-04 07:47] VITALS: BP 135/84; PULSE 64; O2SAT 97
--- NOTE | 2022-01-04 09:28 | PC.NURSE ---
MD at bedside for update on POC
--- NOTE | 2022-01-04 09:37 | PC.NURSE ---
Patient given sling and it was put on before she left -RC
[2022-01-04 09:45] VITALS: BP 115/84; PULSE 91; RESP 18; TEMP 36.4; O2SAT 98
== END 2022-01-04 09:45 | disposition home or self-care (01) ==
PROVIDERS: Emergency Provider Emergency Medicine; PCP Emergency Medicine
DX: S20.212A Contusion of left front wall of thorax, initial encounter (principal); S40.012A Contusion of left shoulder, initial encounter; W01.0XXA Fall on same level from slipping, tripping and stumbling without subsequent striking against object, initial encounter; Y92.012 Bathroom of single-family (private) house as the place of occurrence of the external cause; K21.9 Gastro-esophageal reflux disease without esophagitis; Z86.73 Personal history of transient ischemic attack (TIA), and cerebral infarction without residual deficits; Z95.0 Presence of cardiac pacemaker; G43.709 Chronic migraine without aura, not intractable, without status migrainosus; Z87.891 Personal history of nicotine dependence
CPT/HCPCS: 71045; 71250; 72125; 72128; 72170; 73000; 73030; 96374; 96375; 99282; 99284; J2405

== ENCOUNTER → 2022-01-04 16:00 | Outpatient (CLI) | payer MEDICAID, SELFPAY ==
[2022-01-04 14:13] LABS: Phencyclidine Screen,Urine Negative ng/ml (<25)
[2022-01-04 14:17] LABS: Amphetamine/Metha Screen,Urine Negative ng/ml (<1000)
[2022-01-04 14:18] LABS: Barbiturates Screen,Urine Negative ng/ml (<200); Benzodiazepines Screen,Urine Negative ng/ml (<200)
[2022-01-04 14:19] LABS: Cannabinoid Screen,Urine Negative ng/ml (<50)
[2022-01-04 14:23] LABS: Methadone Screen,Urine Negative ng/ml (<300)
[2022-01-04 14:24] LABS: Opiate Screen,Urine Positive ng/ml (<300)
[2022-01-04 14:25] LABS: Cocaine Screen,Urine Negative ng/ml (<300)
== END ==
PROVIDERS: Visit Provider Emergency Medicine
DX: Z79.899 Other long term (current) drug therapy (principal)
CPT/HCPCS: 80305

== ENCOUNTER 2022-01-16 22:23 | Inpatient (IN) | payer MEDICAID, SELFPAY ==
[2022-01-16 22:23] VITALS: BMI 23.1
--- NOTE | 2022-01-16 22:23 | XR_ITS ---
PROCEDURE INFORMATION: Exam: XR Chest Exam date and time: 01/16/2022 10:23 PM Age: 56 years old Clinical indication: Injury or trauma; Fall; Blunt trauma (contusions or hematomas); Additional info: Possible fall TECHNIQUE: Imaging protocol: XR of the chest. Views: 1 view. COMPARISON: CR XR CHEST AP 01/04/2022 6:51 AM FINDINGS: Tubes, catheters and devices: Dual lead pacemaker in the left hemithorax. Lungs: Mild bibasilar atelectasis. No acute appearing consolidation. Pleural spaces: No pleural effusion or pneumothorax. Heart/Mediastinum: No acute findings or cardiomegaly. Vasculature: Metallic stent along the right side of the spine, presumably in the SVC. Bones/joints: No acute findings. IMPRESSION: 1. No acute cardiopulmonary findings. 2. Other chronic and postsurgical changes as described.
--- NOTE | 2022-01-16 22:25 | XR_ITS ---
PROCEDURE INFORMATION: Exam: XR Right Hand Exam date and time: 01/16/2022 10:25 PM Age: 56 years old Clinical indication: Injury or trauma; Fall; Swelling (edema); Hand; Right; Additional info: Possible fall TECHNIQUE: Imaging protocol: XR Right hand. Views: 3 or more views. COMPARISON: No relevant prior studies available. FINDINGS: Bones/joints: No acute fracture, dislocation or osseous destructive process. Soft tissues: Diffuse soft tissue swelling of the hand. No radiopaque foreign body. IMPRESSION: No acute osseous findings or radiopaque foreign body.
--- NOTE | 2022-01-16 22:25 | ECG_ITS ---
APPROVED REPORT Exam: Resting ECG HR:96 bpm ECG Measurements Heart Rate 96 AXES WI 169 P 72 QRSd 74 QRS -2 QT 319 T 79 QTc 373 Conclusion SINUS RHYTHM POSSIBLE LEFT ATRIAL ENLARGEMENT [-0.1mV P-WAVE IN V1/V2] SEPTAL MYOCARDIAL INFARCTION , OF INDETERMINATE AGE [40+ ms Q WAVE IN V1/V2] ABNORMAL ECG UNCONFIRMED REPORT Electronically signed by : Dayton Negrete MD 01/17/2022 19:49:18
[2022-01-16 22:45] VITALS: BP 120/102; PULSE 96; O2SAT 99
--- NOTE | 2022-01-16 22:45 | CT_ITS ---
PROCEDURE INFORMATION: Exam: CT Maxillofacial Without Contrast Exam date and time: 01/16/2022 10:45 PM Age: 56 years old Clinical indication: Injury or trauma; Fall; Blunt trauma (contusions or hematomas); Cheek bone and other: Ear; Right TECHNIQUE: Imaging protocol: Computed tomography images of the face without contrast. Radiation optimization: All CT scans at this facility use at least one of these dose optimization techniques: automated exposure control; mA and/or kV adjustment per patient size (includes targeted exams where dose is matched to clinical indication); or iterative reconstruction. COMPARISON: No relevant prior studies available. FINDINGS: Limitations: Patient motion. Orbital cavity: No orbital hemorrhage. Bones/joints: No acute fracture. Paranasal sinuses: Scattered paranasal sinus disease. Soft tissues: Unremarkable. IMPRESSION: No acute facial bone fracture.
--- NOTE | 2022-01-16 22:45 | CT_ITS ---
PROCEDURE INFORMATION: Exam: CT Cervical Spine With Contrast Exam date and time: 01/16/2022 10:45 PM Age: 56 years old Clinical indication: Weakness and other: Fell and layed in one area for long time; Additional info: Fall TECHNIQUE: Imaging protocol: Computed tomography images of the cervical spine with intravenous contrast. Radiation optimization: All CT scans at this facility use at least one of these dose optimization techniques: automated exposure control; mA and/or kV adjustment per patient size (includes targeted exams where dose is matched to clinical indication); or iterative reconstruction. Contrast material: ISOVUE; Contrast volume: 75 ml; Contrast route: IV; COMPARISON: CT FACIAL BONES WO CON 01/17/2022 12:28 AM FINDINGS: Bones/joints: Nonspecific straightening. Trace anterolisthesis of C3 on C4. Cervical levels demonstrate preserved height. Mild degenerative change about the dens. Mild to moderate prevertebral osteophytosis. There are facet joint degenerative changes bilaterally. No acute cervical spine fracture. Discs/Spinal canal/Neural foramina: No definite significant central canal stenosis within limitations of technique. Multilevel cervical foraminal stenoses. Prevertebral Space: There is mild prevertebral edema. Lungs: Lung apices are normal. Pleural spaces: No visible pneumothorax. Soft tissues: Unremarkable. IMPRESSION: 1. No definite acute cervical spine fracture. 2. There is mild prevertebral edema. Consider posttraumatic versus infectious/inflammatory etiology.
[2022-01-16 22:47] VITALS: BP 120/102; PULSE 79; RESP 21; TEMP 36.9; O2SAT 99; BMI 23.1
[2022-01-16 22:50] LABS: Microscopic, Urine URINE MICROSCOPIC (MICROSCOPIC)
[2022-01-16 22:55] LABS: Basophils # 0.1 K/mm3 (0-0.2); Basophils % 0.3 % (0.1-2.0); Eosinophils % 0.1 % (0.1-12.0); Hematocrit 43.4 % (37.0-47.0); Hemoglobin 13.8 g/dL (12.2-16.2); Lymphocytes % 3.1 % (10-50); Mean Corpuscular HGB Conc 31.7 g/dL (31.8-35.4); Mean Corpuscular Volume 88.2 fl (81-99); Mean Platelet Volume 8.2 fl (7.4-10.4); Monocytes # 0.9 K/mm3 (0.1-1.0); Neutrophils # 28.9 K/mm3 (1.8-7.8); Neutrophils % 93.5 % (37.0-80.0); Platelet Count 383 K/mm3 (142-424); Red Blood Count 4.92 M/mm3 (4.20-5.40); Red Cell Distribution Width 13.4 % (11.5-17.5)
[2022-01-16 22:56] LABS: POC Glucose,Bedside 78 (70-110)
[2022-01-16 22:56] LABS: Appearance,Urine CLOUDY (Clear); Bilirubin,Urine Negative (Negative); Blood, Urine 3+ (Negative); Color,Urine YELLOW (Yellow); Glucose,Urine (UA) 1+ (Negative); Ketones,Urine Negative (Negative); Leukocyte Esterase,Urine Negative (Negative); Nitrate,Urine POSITIVE (Negative); PH,Urine 5.5 (5.0-8.5); Protein,Urine 2+ (Negative); Specific Gravity, Urine >= 1.030 (1.005-1.030); Urobilinogen,Urine 0.2 EU/dl (0.2)
--- NOTE | 2022-01-16 22:57 | XR_ITS ---
PROCEDURE INFORMATION: Exam: XR Pelvis Exam date and time: 01/16/2022 10:57 PM Age: 56 years old Clinical indication: Injury or trauma; Fall; Blunt trauma (contusions or hematomas); Bilateral; Pelvic region; Additional info: Possible fall TECHNIQUE: Imaging protocol: XR pelvis. Views: 1 or 2 view. COMPARISON: CT ABDOMEN PELVIS W CON 01/17/2022 12:44 AM FINDINGS: Bones/joints: No acute fracture, dislocation or osseous destructive process. Soft tissues: No acute findings or radiopaque foreign body. IMPRESSION: No acute findings.
[2022-01-16 22:59] LABS: MANUAL DIFFERENTIAL MANUAL DIFFERENTIAL (MANUAL DIFF)
[2022-01-16 23:00] LABS: Bacteria,Urine 4+ /lpf
[2022-01-16 23:05] LABS: Hypochromasia 1+; Lymphocytes % 4 % (10-50); Neutrophils % 80 % (42-76); Platelet Estimate Normal; Total Cells Counted 100
[2022-01-16 23:07] LABS: Alanine Aminotransferase 224 U/L (12-78); Albumin Level 4.4 g/dl (3.5-5.0); Albumin/Globulin Ratio 1.5 (1.1-1.8); Alkaline Phosphatase 179 U/L (38-126); Anion Gap 20.6 mEq/L (5-15); Aspartate Amino Transferase 522 U/L (14-36); Barbiturates Screen,Urine Negative ng/ml (<200); Bilirubin,Total 0.4 mg/dl (0.2-1.3); Blood Urea Nitrogen 36 mg/dl (7-17); Calcium 8.8 mg/dl (8.4-10.2); Carbon Dioxide 19 mmol/L (22.0-30.0); Chloride 105 mmol/L (98-107); Creatinine Clearance Estimated 48 mL/min (50-200); Estimated Glomerular Filt Rate 39 ml/min (>60); GFR (African American) 47 ML/MIN (>60); Glucose 102 mg/dl (74-100); Magnesium 1.8 mg/dl (1.6-2.3); Potassium 4.6 mmoL/L (3.5-5.1); Sodium 140 mmol/L (136-145); Total Protein,Serum 7.4 g/dl (6.3-8.2)
[2022-01-16 23:08] LABS: Benzodiazepines Screen,Urine Negative ng/ml (<200)
[2022-01-16 23:09] LABS: Cocaine Screen,Urine Positive ng/ml (<300)
[2022-01-16 23:10] LABS: Cannabinoid Screen,Urine Positive ng/ml (<50); Lactic Acid 4.5 mmol/L (0.7-2.1); Methadone Screen,Urine Negative ng/ml (<300)
--- NOTE | 2022-01-16 23:10 | PC.NURSE ---
notified jeannie of critical lactic 4.5
[2022-01-16 23:11] LABS: Opiate Screen,Urine Positive ng/ml (<300); Phencyclidine Screen,Urine Negative ng/ml (<25)
[2022-01-16 23:13] LABS: C-Reactive Protein 24.9 mg/L (0-4)
[2022-01-16 23:14] LABS: Creatine Kinase 3133 U/L (30-135)
--- NOTE | 2022-01-16 23:15 | CT_ITS ---
PROCEDURE INFORMATION: Exam: CT Abdomen And Pelvis With Contrast Exam date and time: 01/16/2022 11:15 PM Age: 56 years old Clinical indication: Abdominal tenderness; Additional info: Elevated liver enzymes TECHNIQUE: Imaging protocol: Computed tomography of the abdomen and pelvis with contrast. Radiation optimization: All CT scans at this facility use at least one of these dose optimization techniques: automated exposure control; mA and/or kV adjustment per patient size (includes targeted exams where dose is matched to clinical indication); or iterative reconstruction. Contrast material: ISOVUE; Contrast volume: 75 ml; Contrast route: IV; COMPARISON: CR XR PELVIS 1-2V 01/04/2022 6:51 AM FINDINGS: Tubes, catheters and devices: Partially visualized pacemaker and pacemaker wires. Lungs: Mild atelectasis in the right middle lobe. Liver: No acute findings. No mass. Gallbladder and bile ducts: Mild intrahepatic ductal prominence. Gallbladder is distended but without associated acute findings otherwise. Extrahepatic biliary ducts are normal in appearance. Pancreas: No acute findings, focal abnormality or ductal dilation. Spleen: Calcified granulomata in the spleen. Adrenal glands: Normal. No mass. Kidneys and ureters: No hydronephrosis. Stomach and bowel: No obstruction. No mucosal thickening. Appendix: No evidence of appendicitis. Intraperitoneal space: No free air. No significant fluid collection. Vasculature: No abdominal aortic aneurysm. Lymph nodes: No pathologically enlarged lymph nodes. Urinary bladder: Hung catheter in the urinary bladder. Reproductive: Unremarkable as visualized. Bones/joints: No acute fracture. Soft tissues: No acute findings. IMPRESSION: 1. Mild intrahepatic ductal prominence. No extrahepatic ductal dilation. 2. Distended but otherwise unremarkable gallbladder. 3. Hung catheter in urinary bladder.
[2022-01-16 23:23] LABS: Erythrocyte Sedimentation Rate 23 mm/hr (0-30)
[2022-01-16 23:24] LABS: Troponin I 0.54 ng/ml (0.00-0.034)
--- NOTE | 2022-01-16 23:25 | PC.NURSE ---
Miranda from lab called with critical troponin of 0.54. notified.
[2022-01-16 23:27] LABS: Procalcitonin 8.34 ng/mL (0.0-2.0)
[2022-01-16 23:29] LABS: Amphetamine/Metha Screen,Urine Positive ng/ml (<1000)
[2022-01-16 23:36] VITALS: BP 131/94; PULSE 96; RESP 27; O2SAT 97
--- NOTE | 2022-01-16 23:52 | HMH.EDAMS ---
ED Disposition Clinical Impression: Severe sepsis with acute organ dysfunction, Septic shock, Abnormal drug screen, Pacemaker, Lacunar infarction, Elevated troponin, Elevated liver enzymes, KHUSHBOO (acute kidney injury) Altered mental status Qualifiers: Altered mental status type: delirium Qualified Code(s): R41.0 - Disorientation, unspecified UTI (urinary tract infection) Qualifiers: Urinary tract infection type: site unspecified Hematuria presence: without hematuria Qualified Code(s): N39.0 - Urinary tract infection, site not specified Rhabdomyolysis Qualifiers: Rhabdomyolysis type: non-traumatic Qualified Code(s): M62.82 - Rhabdomyolysis Disposition: Admitted As Inpatient Condition on Discharge: Serious Instructions: DI for Altered Mental Status Referrals: Darrell Magallon MD [Primary Care Provider] - - Critical Care Critical Care Time: Yes Attestation: On 01/16/22, the high probability of a clinically significant, sudden or life threatening deterioration of the following system(s) required my full and direct attention, intervention and personal management. The time I documented below is in addition to time spent performing reported procedures but includes the following listed in this critical care notation. Total Critical Care Time: 60 Vital system(s) involved:: Shock (Septic) My critical care processes included: Assessment & monitoring of V/S, Initial and Re-exams, Data Review/Interpretation, Coordinating Care, Medication Orders and management, Documentation Medical Decision Making - Medical Records Medical records reviewed: Yes: I reviewed the patient's medical records. - [place] Inquiry Pt receiving controlled substance: No Vital Signs: 01/16/22 22:45 01/16/22 22:47 01/16/22 23:36 Temperature 98.4 F Temperature Source Rectal Pulse Rate 96 H 96 H Pulse Rate [Apical] 79 Respiratory Rate 21 27 H Blood Pressure 120/102 H 131/94 H Blood Pressure [Left Arm] 120/102 H Blood Pressure Mean 106 105 Blood Pressure Mean [Left Arm] 108 Blood Pressure Source [Left Arm] Automatic Cuff Blood Pressure Position [Left Arm] Sitting 02 Sat by Pulse Oximetry 99 99 97 Oxygen Delivery Method Room Air Nasal Cannula Room Air Oxygen Flow Rate (LPM) 2 01/17/22 00:15 01/17/22 01:37 01/17/22 02:00 Temperature Temperature Source Pulse Rate 94 H 99 H 96 H Pulse Rate [Apical] Respiratory Rate 14 23 16 Blood Pressure 142/87 H 135/82 142/81 H Blood Pressure [Left Arm] Blood Pressure Mean 104 Blood Pressure Mean [Left Arm] Blood Pressure Source [Left Arm] Blood Pressure Position [Left Arm] 02 Sat by Pulse Oximetry 96 97 95 Oxygen Delivery Method Room Air Room Air Room Air Oxygen Flow Rate (LPM) 01/17/22 02:30 01/17/22 03:00 01/17/22 03:30 Temperature Temperature Source Pulse Rate 97 H 98 H 96 H Pulse Rate [Apical] Respiratory Rate 16 14 16 Blood Pressure 145/81 H 142/80 H 145/82 H Blood Pressure [Left Arm] Blood Pressure Mean 102 97 Blood Pressure Mean [Left Arm] Blood Pressure Source [Left Arm] Blood Pressure Position [Left Arm] 02 Sat by Pulse Oximetry 95 96 94 L Oxygen Delivery Method Room Air Room Air Room Air Oxygen Flow Rate (LPM) 01/17/22 04:00 Temperature 98.9 F Temperature Source Rectal Pulse Rate 95 H Pulse Rate [Apical] Respiratory Rate 16 Blood Pressure 144/86 H Blood Pressure [Left Arm] Blood Pressure Mean 108 Blood Pressure Mean [Left Arm] Blood Pressure Source [Left Arm] Blood Pressure Position [Left Arm] 02 Sat by Pulse Oximetry 95 Oxygen Delivery Method Room Air Oxygen Flow Rate (LPM) - Lab Data Lab results reviewed: Yes: I reviewed the patient's lab results. Lab Results 01/16/22 22:30: WBC 31.0 H*, RBC 4.92, Hgb 13.8, Hct 43.4, MCV 88.2, MCH 28.0, MCHC 31.7 L, RDW 13.4, Plt Count 383, MPV 8.2, Neut % (Auto) 93.5 H, Lymph % (Auto) 3.1 L, [place] % (Auto) 3.0, Eos % (Auto) 0.1, Baso % (Auto) 0.3, Neut # (Auto)
[2022-01-16 23:54] LABS: Ammonia 10 umol/L (9-30)
[2022-01-17] VITALS (20 sets, daily range): BP systolic 126–162; BP diastolic 73–119; PULSE 90–102; RESP 14–23; TEMP 36.6–37.2; O2SAT 92–98; BMI 25.7
--- NOTE | 2022-01-17 00:39 | CT_ITS ---
PROCEDURE INFORMATION: Exam: CT Head Without Contrast Exam date and time: 01/17/2022 12:39 AM Age: 56 years old Clinical indication: Altered mental status/memory loss; Confusion or disorientation; Additional info: AMS TECHNIQUE: Imaging protocol: Computed tomography of the head without contrast. Radiation optimization: All CT scans at this facility use at least one of these dose optimization techniques: automated exposure control; mA and/or kV adjustment per patient size (includes targeted exams where dose is matched to clinical indication); or iterative reconstruction. COMPARISON: CT FACIAL BONES WO CON 01/17/2022 12:28 AM FINDINGS: Brain: No acute intracranial hemorrhage, midline shift or significant intracranial mass effect. There are chronic lacunar infarcts at the left basal ganglia and thalamus. Cerebral ventricles: No hydrocephalus. Paranasal sinuses: Paranasal sinus disease is better evaluated on dedicated exam. Mastoid air cells: Mild partial opacification of the bilateral mastoid air cells. Bones/joints: Facial bones are better evaluated on dedicated exam. No acute calvarial fracture. Soft tissues: Unremarkable. IMPRESSION: No acute intracranial abnormality.
--- NOTE | 2022-01-17 00:55 | CT_ITS ---
PROCEDURE INFORMATION: Exam: CT Lumbar Spine With Contrast Exam date and time: 01/17/2022 12:55 AM Age: 56 years old Clinical indication: Weakness; Patient HX: PT was found with AMS and had been laying in one position for long time TECHNIQUE: Imaging protocol: Computed tomography images of the lumbar spine with intravenous contrast. Radiation optimization: All CT scans at this facility use at least one of these dose optimization techniques: automated exposure control; mA and/or kV adjustment per patient size (includes targeted exams where dose is matched to clinical indication); or iterative reconstruction. Contrast material: ISOVUE; Contrast volume: 75 ml; Contrast route: IV; COMPARISON: CT THORACIC SPINE W CON 01/17/2022 1:04 AM FINDINGS: Vertebrae: Grade 1 anterolisthesis of L4 on L5 and L5 on S1. Vertebral body heights are preserved. Mild prevertebral osteophytosis. There are facet joint degenerative changes. No acute lumbar spine fracture. No osseous destruction. Discs/Spinal canal/Neural foramina: Central canal stenosis greatest at L4-L5, likely moderate. Soft tissues: See Vertebrae finding. IMPRESSION: No acute lumbar spine fracture.
--- NOTE | 2022-01-17 00:55 | CT_ITS ---
PROCEDURE INFORMATION: Exam: CT Thoracic Spine With Contrast Exam date and time: 01/17/2022 12:55 AM Age: 56 years old Clinical indication: Weakness; Patient HX: PT was found with AMS and had been laying in one position for long time TECHNIQUE: Imaging protocol: Computed tomography images of the thoracic spine with intravenous contrast. Radiation optimization: All CT scans at this facility use at least one of these dose optimization techniques: automated exposure control; mA and/or kV adjustment per patient size (includes targeted exams where dose is matched to clinical indication); or iterative reconstruction. Contrast material: ISOVUE; Contrast volume: 75 ml; Contrast route: IV; COMPARISON: CT THORACIC SPINE WO CON 01/04/2022 6:44 AM FINDINGS: Tubes, catheters and devices: There is a stent involving the SVC. Vertebrae: There is minimal loss of superior endplate height involving T1, T2, T3, T4 and T5. Appearance is stable from prior examination. Remainder demonstrates preserved height and AP alignment. Minimal prevertebral osteophytosis. There are bilateral facet joint degenerative changes. No acute thoracic spine fracture. No osseous destruction. Discs/Spinal canal/Neural foramina: No definite significant central canal stenosis within limitations of technique. Soft tissues: See Vertebrae finding. Pleural spaces: No visible pneumothorax. IMPRESSION: No acute thoracic spine fracture.
[2022-01-17 01:44] LABS: Reflex Lactic Add Lactic Reflex
[2022-01-17 01:57] LABS: Lactic Acid Follow Up (RFLX 1) 1.6 mmol/L (0.7-2.1)
[2022-01-17 02:19] LABS: Troponin I 0.63 ng/ml (0.00-0.034)
--- NOTE | 2022-01-17 02:19 | PC.NURSE ---
Critical troponin of 0.63 called from [place] in Lab. notified. No new orders
[2022-01-17 04:39] LABS: Basophils # 0.1 K/mm3 (0-0.2); Basophils % 0.3 % (0.1-2.0); Eosinophils # 0.1 K/mm3 (0.0-0.4); Eosinophils % 0.4 % (0.1-12.0); Hematocrit 38.8 % (37.0-47.0); Lymphocytes # 0.8 K/mm3 (0.7-4.5); Lymphocytes % 3.1 % (10-50); Mean Corpuscular HGB Conc 32.1 g/dL (31.8-35.4); Mean Corpuscular Hemoglobin 28.1 pg (27.0-31.2); Mean Corpuscular Volume 87.7 fl (81-99); Mean Platelet Volume 8.3 fl (7.4-10.4); Monocytes # 0.6 K/mm3 (0.1-1.0); Monocytes % 2.6 % (1.7-9.3); Neutrophils # 23.4 K/mm3 (1.8-7.8); Neutrophils % 93.6 % (37.0-80.0); Platelet Count 319 K/mm3 (142-424); Red Blood Count 4.42 M/mm3 (4.20-5.40); Red Cell Distribution Width 13.3 % (11.5-17.5)
[2022-01-17 04:41] LABS: Coronavirus 19, PCR Not Detected (NotDetected); Influenza A, PCR Not Detected (NotDetected); Influenza B, PCR Not Detected (NotDetected)
[2022-01-17 04:41] LABS: Hemoglobin 12.4 g/dL (12.2-16.2)
[2022-01-17 04:48] LABS: Chloride 110 mmol/L (98-107)
[2022-01-17 04:49] LABS: Potassium 4.2 mmoL/L (3.5-5.1); Sodium 136 mmol/L (136-145)
[2022-01-17 04:52] LABS: Anion Gap 11.2 mEq/L (5-15); Blood Urea Nitrogen 29 mg/dl (7-17); Calcium 7.2 mg/dl (8.4-10.2); Carbon Dioxide 19 mmol/L (22.0-30.0); Creatinine Clearance Estimated 74 mL/min (50-200); Estimated Glomerular Filt Rate 65 ml/min (>60); GFR (African American) 78 ML/MIN (>60); Glucose 97 mg/dl (74-100); Magnesium 1.8 mg/dl (1.6-2.3)
[2022-01-17 05:32] LABS: Procalcitonin 6.55 ng/mL (0.0-2.0)
[2022-01-17 06:12] LABS: Acetaminophen < 10 ug/ml (10-30); Salicylate < 1.0 mg/dL (2.0-20.0)
[2022-01-17 06:14] LABS: Ethyl Alcohol < 10 mg/dl (0-10)
--- NOTE | 2022-01-17 07:40 | HMH.PHAVTE ---
[facility] Pharmacy VTE Monitoring - Patient Demographics Admission date: 01/17/22 Report Date: 01/17/22 Time: 07:40 Allergies/Adverse Reactions: Patient Allergies aspirin Allergy (Verified 01/04/22 11:04) codeine Allergy (Verified 01/04/22 11:04) Height: 1.7 m Weight: 67.132 kg Patient Problems: Current Active Problems Altered mental status (Acute) Severe sepsis with acute organ dysfunction (Acute) Septic shock (Acute) UTI (urinary tract infection) (Acute) Abnormal drug screen (Acute) Pacemaker (Acute) Lacunar infarction (Acute) Rhabdomyolysis (Acute) Elevated troponin (Acute) Elevated liver enzymes (Acute) KHUSHBOO (acute kidney injury) (Acute) - VTE Risk Labs: VTE Related Lab Results Hgb 12.4 g/dL (12.2-16.2) D 01/17/22 04:33 Hct 38.8 % (37.0-47.0) 01/17/22 04:33 Plt Count 319 K/mm3 (142-424) 01/17/22 04:33 BUN 29 mg/dl (7-17) H 01/17/22 04:33 Creatinine 0.90 mg/dl (0.52-1.04) D 01/17/22 04:33 Estimated Creat Clear 74 mL/min (50-200) 01/17/22 04:33 Clinical Trial Participant: No - Prophylaxis VTE Prophylaxis Ordered?: Yes Types of VTE Prophylaxis: TEDS Knee High
--- NOTE | 2022-01-17 07:56 | PC.NURSE ---
report called to floor
[2022-01-17 08:38] LABS: Creatine Kinase 3116 U/L (30-135)
--- NOTE | 2022-01-17 08:58 | PC.NURSE ---
700cc urine from [facility]
--- NOTE | 2022-01-17 09:26 | HMH.PHACONS ---
- Pharmacy Consult Date: 01/17/22 Time: 09:26 Referring provider: DR SEGOVIA Reason for Consult:: VANCOMYCIN DOSING CONSULT Allergies and ADEs:: Allergies Allergy/AdvReac Type Severity Reaction Status Date / Time aspirin Allergy Verified 01/04/22 11:04 codeine Allergy Verified 01/04/22 11:04 Home Medications:: Home Medications Medication Instructions Recorded Confirmed Type clopidogrel 75 mg tablet 75 mg PO DAILY #90 tab 05/05/20 01/04/22 Rx erenumab-aooe 140 mg/mL ml SQ 05/05/20 01/04/22 History subcutaneous auto-injector nitroglycerin 0.4 mg sublingual 0.4 mg SUBLINGUAL tab 05/05/20 01/04/22 History tablet rosuvastatin 20 mg tablet See Rx Instructions .ROUTE 11/10/20 01/04/22 Rx .COMPLEX #90 tab fluticasone propionate 50 1 spray INTRANASAL QDAY 30 Days 07/28/21 01/04/22 Rx mcg/actuation nasal #9.9 g spray,suspension loratadine 10 mg tablet 10 mg PO DAILY #90 tab 07/28/21 01/04/22 Rx omeprazole 40 mg capsule,delayed 40 mg PO ONCE #90 cap 07/28/21 01/04/22 Rx release linaclotide 145 mcg capsule 145 mcg PO DAILY #30 cap 08/04/21 01/04/22 Rx clotrimazole 1 % topical cream 1 applic TOPICAL BID #30 g 09/22/21 01/04/22 Rx montelukast 10 mg tablet 10 mg PO HS #90 tab 09/22/21 01/04/22 Rx lidocaine 5 % topical patch 1 patch TOPICAL DAILY #30 each 10/11/21 01/04/22 Rx lidocaine HCl 2 % mucosal solution 1 applic MUCOUS MEM QID PRN #100 ml 11/24/21 01/04/22 Rx fluticasone 250 mcg-salmeterol 50 See Rx Instructions .ROUTE 11/29/21 01/04/22 Rx mcg/dose blistr powdr for .COMPLEX #60 each inhalation sucralfate 100 mg/mL oral See Rx Instructions .ROUTE 11/29/21 01/04/22 Rx suspension .COMPLEX #900 ml hydrocodone 7.5 mg-acetaminophen 1 tab PO TID #90 tab 12/06/21 01/04/22 Rx 325 mg tablet ubrogepant 50 mg tablet mg PO PRN 12/06/21 01/04/22 History escitalopram oxalate 20 mg tablet See Rx Instructions .ROUTE 12/07/21 01/04/22 Rx .COMPLEX #90 tab albuterol sulfate 90 mcg/actuation 2 puff INHALATION Q6H #8.5 g 12/20/21 01/04/22 Rx aerosol inhaler diclofenac sodium 1 % topical gel See Rx Instructions .ROUTE 12/20/21 01/04/22 Rx .COMPLEX #100 g gabapentin 600 mg tablet 600 mg PO TID #90 tab 01/04/22 01/04/22 Rx hydrocodone 10 mg-acetaminophen 1 tab PO TID #90 tab 01/04/22 01/04/22 Rx 325 mg tablet nystatin 100,000 unit/mL oral See Rx Instructions .ROUTE 01/11/22 Rx suspension .COMPLEX #400 ml Height: 1.7 m Weight: 67.132 kg Laboratory Results:: Laboratory Results - last 24 hr 01/16/22 22:30: WBC 31.0 H*, RBC 4.92, Hgb 13.8, Hct 43.4, MCV 88.2, MCH 28.0, MCHC 31.7 L, RDW 13.4, Plt Count 383, MPV 8.2, Neut % (Auto) 93.5 H, Lymph % (Auto) 3.1 L, [place] % (Auto) 3.0, Eos % (Auto) 0.1, Baso % (Auto) 0.3, Neut # (Auto) 28.9 H, Lymph # (Auto) 1.0, [place] # (Auto) 0.9, Eos # (Auto) 0.0, Baso # (Auto) 0.1, Total Counted 100, Neutrophils % (Manual) 80 H, Band Neutrophils % 16.0 H, Lymphocytes % (Manual) 4 L, Platelet Estimate Normal, Hypochromasia 1+ 01/16/22 22:30: Sodium 140, Potassium 4.6, Chloride 105, Carbon Dioxide 19 L, Anion Gap 20.6 H, BUN 36 H, Creatinine 1.40 H, Estimated Creat Clear 48, Estimated GFR 39 L, Est GFR ( Amer) 47 L, Glucose 102 H, Calcium 8.8, Total Bilirubin 0.4, AST 522 H*, ALT 224 H, Alkaline Phosphatase 179 H, Troponin I 0.54 H, C-Reactive Protein 24.9 H, Total Protein 7.4, Albumin 4.4, Globulin 3.0, Albumin/Globulin Ratio 1.5 01/16/22 22:30: Urine Color Yellow, Urine Appearance Cloudy, Urine pH 5.5, Ur Specific [place] >= 1.030, Urine Protein 2+, Urine Glucose (UA) 1+, Urine Ketones Negative, Urine Blood 3+, Urine Nitrate Positive, Urine Bilirubin Negative, Urine Urobilinogen 0.2, Ur Leukocyte Esterase Negative, Urine RBC 10-20, Urine WBC 5-10, Ur Squamous Epith Cells 5-10, Urine Bacteria 4+ 01/16/22 22:30: ESR 23 01/16/22 22:30: Magnesium 1.8, Total Creatine Kinase 3133 H*, CK-MB (CK-2) 75.0 H*, Procalcitonin 8.34 H 01/16/22 22:30: Urine Opiates Screen Positive H, Urine Met
[2022-01-17 11:20] LABS: Basophils % 0.2 % (0.1-2.0); Eosinophils # 0.1 K/mm3 (0.0-0.4); Eosinophils % 0.2 % (0.1-12.0); Hemoglobin 12.3 g/dL (12.2-16.2); Lymphocytes % 4.4 % (10-50); Mean Corpuscular HGB Conc 31.5 g/dL (31.8-35.4); Mean Corpuscular Hemoglobin 27.8 pg (27.0-31.2); Mean Corpuscular Volume 88.5 fl (81-99); Mean Platelet Volume 8.6 fl (7.4-10.4); Monocytes # 0.8 K/mm3 (0.1-1.0); Monocytes % 3.3 % (1.7-9.3); Neutrophils # 21.1 K/mm3 (1.8-7.8); Neutrophils % 91.9 % (37.0-80.0); Platelet Count 280 K/mm3 (142-424); Red Blood Count 4.41 M/mm3 (4.20-5.40); Red Cell Distribution Width 13.5 % (11.5-17.5); White Blood Count 22.9 K/mm3 (4.8-10.8)
[2022-01-17 11:34] LABS: MANUAL DIFFERENTIAL MANUAL DIFFERENTIAL (MANUAL DIFF)
[2022-01-17 12:35] LABS: Procalcitonin 5.95 ng/mL (0.0-2.0)
--- NOTE | 2022-01-17 12:43 | HMH.CNCARD ---
History of Present Illness Consult date: 01/17/22 Requesting physician: Darrell Magallon Chief complaint: elevated troponin Additional Medical History:: 1. Pacemaker 2. History of drug use A. Positive drug screen, 01/2022, opiates, amphetamines, cocaine, marijuana 3. Sepsis, 01/2022 4. CKD, stage III 5. History of CAD 6. GERD 7. History of CVA History of present illness: 56-year-old white female brought to the ER for altered mental status and decreased level of alertness. Work-up in the ER included troponins which were noted to be elevated. Patient met criteria for sepsis and was subsequently admitted. Cardiology consulted for evaluation of elevated troponins. Of note patient recently had pacemaker generator changed in [place]. Steri-Strips are still intact over the left chest. Patient is noncommunicative at this time. [facility] History Medical History: Reports:: Arrhythmia, Congenital Heart Disease, Coronary Artery Disease, Cerebrovascular Accident, Gastroesophageal Reflux Disease(GERD), Heart Murmur, Internal Pacemaker, Migraine Denies:: Diabetes Mellitus Type 1, Diabetes Mellitus Type 2 *Have you ever received a pneumonia vaccine?: No *Have you received a flu vaccine this season?: No Other Medical History: Reports: Arthritis Other Surgeries: Yes: Cardiac Catheterization, Cardiac Surgery, Colonoscopy, Coronary Stent, , Diagnostic Lap, Pacemaker, Tubal Ligation Amputation: No Fractures: No - *Social History Smoking Status: Former smoker Alcohol Intake: never Substance Use Type: former substance user *Occupational Status:: unemployed Household Members: spouse *Travel in the last 8 weeks: None Family Hx:: Unable to obtain Meds Home Medications Medication Instructions Recorded Confirmed Type clopidogrel 75 mg tablet 75 mg PO DAILY #90 tab 05/05/20 01/17/22 Rx erenumab-aooe 140 mg/mL 140 mg SQ MONTHLY 05/05/20 01/17/22 History subcutaneous auto-injector nitroglycerin 0.4 mg sublingual 0.4 mg SUBLINGUAL Q5MINP PRN tab 05/05/20 01/17/22 History tablet rosuvastatin 20 mg tablet See Rx Instructions .ROUTE 11/10/20 01/17/22 Rx .COMPLEX #90 tab fluticasone propionate 50 1 spray INTRANASAL QDAY 30 Days 07/28/21 01/17/22 Rx mcg/actuation nasal #9.9 g spray,suspension loratadine 10 mg tablet 10 mg PO DAILY #90 tab 07/28/21 01/17/22 Rx linaclotide 145 mcg capsule 145 mcg PO DAILY #30 cap 08/04/21 01/17/22 Rx montelukast 10 mg tablet 10 mg PO HS #90 tab 09/22/21 01/17/22 Rx fluticasone 250 mcg-salmeterol 50 See Rx Instructions .ROUTE 11/29/21 01/17/22 Rx mcg/dose blistr powdr for .COMPLEX #60 each inhalation sucralfate 100 mg/mL oral See Rx Instructions .ROUTE 11/29/21 01/17/22 Rx suspension .COMPLEX #900 ml ubrogepant 50 mg tablet 50 mg PO NEEDED PRN 12/06/21 01/17/22 History escitalopram oxalate 20 mg tablet See Rx Instructions .ROUTE 12/07/21 01/17/22 Rx .COMPLEX #90 tab albuterol sulfate 90 mcg/actuation 2 puff INHALATION Q6H #8.5 g 12/20/21 01/17/22 Rx aerosol inhaler diclofenac sodium 1 % topical gel See Rx Instructions .ROUTE 12/20/21 01/17/22 Rx .COMPLEX #100 g hydrocodone 10 mg-acetaminophen 1 tab PO TID #90 tab 01/04/22 01/17/22 Rx 325 mg tablet Gabapentin [Gabapentin 400mg Cap] 400 mg PO TID 01/17/22 01/17/22 History Venlafaxine HCl [Venlafaxine HCl 37.5 mg PO DAILY 01/17/22 01/17/22 History ER] Allergies Allergy/AdvReac Type Severity Reaction Status Date / Time aspirin Allergy Verified 01/04/22 11:04 codeine Allergy Verified 01/04/22 11:04 Exam Vital signs and Labs for Last 24 Hours: Temp Pulse Resp BP Pulse Ox 98 F 95 H 18 140/73 93 L 01/17/22 09:02 01/17/22 10:23 01/17/22 10:23 01/17/22 10:23 01/17/22 10:23 Laboratory Results - last 24 hr 01/16/22 22:30: WBC 31.0 H*, RBC 4.92, Hgb 13.8, Hct 43.4, MCV 88.2, MCH 28.0, MCHC 31.7 L, RDW 13.4, Plt Count 383, MPV 8.2, Neut % (Auto) 93.5 H, Lymph % (Auto) 3.1 L, [place] % (Aut
[2022-01-17 13:52] LABS: Lymphocytes % 8 % (10-50); Neutrophils % 92 % (42-76); Total Cells Counted 100
[2022-01-17 13:53] LABS: Platelet Estimate Normal
--- NOTE | 2022-01-17 14:12 | HMH.HP ---
*Admission Date: 01/17/22 *Chief complaint: altered mental status *History of present illness: this patient presented to the ed -with altered mental status -per ems, patient was found this evening by her and was not responding to him with altered level of consciousness. Patients stated that she was normal last night when he saw her last.. Patient has swelling to her right ear, with redness and swelling noted to right cheek bone. possible drug use and hx of prev strokes - had battery changed in [place] for pacemaker on - pt was found in the ed with [employer] with drug use and had prob sepsis and swollen rt ear and pt was admitted with ivf and abx at this time [facility] History I have reviewed the patient's past medical history: Yes Medical History: Reports:: Arrhythmia, Congenital Heart Disease, Coronary Artery Disease, Cerebrovascular Accident, Gastroesophageal Reflux Disease(GERD), Heart Murmur, Internal Pacemaker, Migraine Denies:: Diabetes Mellitus Type 1, Diabetes Mellitus Type 2 *Have you ever received a pneumonia vaccine?: No *Have you received a flu vaccine this season?: No Other Medical History: Reports: Arthritis Other Surgeries: Yes: Cardiac Catheterization, Cardiac Surgery, Colonoscopy, Coronary Stent, , Diagnostic Lap, Pacemaker, Tubal Ligation Amputation: No Fractures: No - *Social History Smoking Status: Former smoker Alcohol Intake: never Substance Use Type: former substance user *Occupational Status:: unemployed Household Members: spouse *Travel in the last 8 weeks: None Family Hx:: Unable to obtain Review of Systems - Review of Systems Review of systems:: unable to obtain Meds Home Medications Medication Instructions Recorded Confirmed Type clopidogrel 75 mg tablet 75 mg PO DAILY #90 tab 05/05/20 01/17/22 Rx erenumab-aooe 140 mg/mL 140 mg SQ MONTHLY 05/05/20 01/17/22 History subcutaneous auto-injector nitroglycerin 0.4 mg sublingual 0.4 mg SUBLINGUAL Q5MINP PRN tab 05/05/20 01/17/22 History tablet rosuvastatin 20 mg tablet See Rx Instructions .ROUTE 11/10/20 01/17/22 Rx .COMPLEX #90 tab fluticasone propionate 50 1 spray INTRANASAL QDAY 30 Days 07/28/21 01/17/22 Rx mcg/actuation nasal #9.9 g spray,suspension loratadine 10 mg tablet 10 mg PO DAILY #90 tab 07/28/21 01/17/22 Rx linaclotide 145 mcg capsule 145 mcg PO DAILY #30 cap 08/04/21 01/17/22 Rx montelukast 10 mg tablet 10 mg PO HS #90 tab 09/22/21 01/17/22 Rx fluticasone 250 mcg-salmeterol 50 See Rx Instructions .ROUTE 11/29/21 01/17/22 Rx mcg/dose blistr powdr for .COMPLEX #60 each inhalation sucralfate 100 mg/mL oral See Rx Instructions .ROUTE 11/29/21 01/17/22 Rx suspension .COMPLEX #900 ml ubrogepant 50 mg tablet 50 mg PO NEEDED PRN 12/06/21 01/17/22 History escitalopram oxalate 20 mg tablet See Rx Instructions .ROUTE 12/07/21 01/17/22 Rx .COMPLEX #90 tab albuterol sulfate 90 mcg/actuation 2 puff INHALATION Q6H #8.5 g 12/20/21 01/17/22 Rx aerosol inhaler diclofenac sodium 1 % topical gel See Rx Instructions .ROUTE 12/20/21 01/17/22 Rx .COMPLEX #100 g hydrocodone 10 mg-acetaminophen 1 tab PO TID #90 tab 01/04/22 01/17/22 Rx 325 mg tablet Gabapentin [Gabapentin 400mg Cap] 400 mg PO TID 01/17/22 01/17/22 History Venlafaxine HCl [Venlafaxine HCl 37.5 mg PO DAILY 01/17/22 01/17/22 History ER] Allergies Allergy/AdvReac Type Severity Reaction Status Date / Time aspirin Allergy Verified 01/04/22 11:04 codeine Allergy Verified 01/04/22 11:04 Exam Vital signs and Labs for Last 24 Hours: Temp Pulse Resp BP Pulse Ox 98 F 95 H 18 140/73 93 L 01/17/22 09:02 01/17/22 10:23 01/17/22 10:23 01/17/22 10:23 01/17/22 10:23 Laboratory Results - last 24 hr 01/16/22 22:30: WBC 31.0 H*, RBC 4.92, Hgb 13.8, Hct 43.4, MCV 88.2, MCH 28.0, MCHC 31.7 L, RDW 13.4, Plt Count 383, MPV 8.2, Neut % (Auto) 93.5 H, Lymph % (Auto) 3.1 L, [place] % (Auto) 3.0, Eos % (Auto)
[2022-01-17 19:09] LABS: Chloride 111 mmol/L (98-107); Potassium 4.3 mmoL/L (3.5-5.1); Sodium 137 mmol/L (136-145)
[2022-01-17 19:12] LABS: Anion Gap 10.3 mEq/L (5-15); Blood Urea Nitrogen 24 mg/dl (7-17); Carbon Dioxide 20 mmol/L (22.0-30.0); Creatinine Clearance Estimated 105 mL/min (50-200); Estimated Glomerular Filt Rate 87 ml/min (>60); GFR (African American) 105 ML/MIN (>60)
[2022-01-17 19:13] LABS: Calcium 7.7 mg/dl (8.4-10.2); Glucose 87 mg/dl (74-100)
--- NOTE | 2022-01-17 20:46 | CT_ITS ---
PROCEDURE INFORMATION: Exam: CT Head Without Contrast Exam date and time: 01/17/2022 8:46 PM Age: 56 years old Clinical indication: Injury or trauma; Fall; Blunt trauma (contusions or hematomas); Without loss of consciousness; Injury details: Patient stood up in [facility] hospital bed and fell landing on her head. TECHNIQUE: Imaging protocol: Computed tomography of the head without contrast. Radiation optimization: All CT scans at this facility use at least one of these dose optimization techniques: automated exposure control; mA and/or kV adjustment per patient size (includes targeted exams where dose is matched to clinical indication); or iterative reconstruction. COMPARISON: CT HEAD/BRAIN WO CON 01/17/2022 12:40 AM FINDINGS: Brain: Motion artifact limits evaluation for small intracranial abnormalities. Bilateral basal ganglia chronic lacunar infarctions are less conspicuous than on prior study. Mild chronic brain volume loss and chronic small vessel ischemic changes. Cerebral ventricles: No ventriculomegaly. Paranasal sinuses: Mild mucosal thickening in the paranasal sinuses. Mastoid air cells: Visualized mastoid air cells are well aerated. Bones/joints: Unremarkable. No acute fracture. Soft tissues: Unremarkable. IMPRESSION: Motion artifact limits evaluation for small intracranial abnormalities. Within the limitations of the study, no acute findings.
[2022-01-18] VITALS (11 sets, daily range): BP systolic 148–167; BP diastolic 78–87; PULSE 60–106; RESP 16–20; TEMP 36.4–36.9; O2SAT 95–99; BMI 25.6
[2022-01-18 06:07] LABS: MANUAL DIFFERENTIAL MANUAL DIFFERENTIAL (MANUAL DIFF)
[2022-01-18 06:13] LABS: Basophils % 0.2 % (0.1-2.0); Eosinophils # 0.1 K/mm3 (0.0-0.4); Eosinophils % 0.3 % (0.1-12.0); Hemoglobin 11.5 g/dL (12.2-16.2); Lymphocytes # 1.5 K/mm3 (0.7-4.5); Lymphocytes % 8.7 % (10-50); Mean Corpuscular HGB Conc 31.8 g/dL (31.8-35.4); Mean Corpuscular Hemoglobin 28.1 pg (27.0-31.2); Mean Corpuscular Volume 88.3 fl (81-99); Mean Platelet Volume 8.6 fl (7.4-10.4); Monocytes # 0.5 K/mm3 (0.1-1.0); Neutrophils # 15.2 K/mm3 (1.8-7.8); Neutrophils % 87.7 % (37.0-80.0); Platelet Count 220 K/mm3 (142-424); Red Blood Count 4.08 M/mm3 (4.20-5.40); Red Cell Distribution Width 13.6 % (11.5-17.5); White Blood Count 17.3 K/mm3 (4.8-10.8)
[2022-01-18 06:21] LABS: Anion Gap 9.4 mEq/L (5-15); Blood Urea Nitrogen 11 mg/dl (7-17); Calcium 8.4 mg/dl (8.4-10.2); Carbon Dioxide 24 mmol/L (22.0-30.0); Chloride 110 mmol/L (98-107); Creatinine Clearance Estimated 184 mL/min (50-200); Estimated Glomerular Filt Rate 165 ml/min (>60); GFR (African American) 200 ML/MIN (>60); Glucose 100 mg/dl (74-100); Potassium 3.4 mmoL/L (3.5-5.1); Sodium 140 mmol/L (136-145)
[2022-01-18 08:28] LABS: Lymphocytes % 11 % (10-50); Monocytes % 2 % (2-9); Neutrophils % 87 % (42-76); Platelet Estimate Normal; Total Cells Counted 100
--- NOTE | 2022-01-18 08:54 | HMH.PHACONS ---
- Pharmacy Consult Date: 01/18/22 Time: 08:54 Referring provider: DR SEGOVIA Reason for Consult:: VANCOMYCIN DOSING ADJUSTMENT Allergies and ADEs:: Allergies Allergy/AdvReac Type Severity Reaction Status Date / Time aspirin Allergy Verified 01/04/22 11:04 codeine Allergy Verified 01/04/22 11:04 Home Medications:: Home Medications Medication Instructions Recorded Confirmed Type clopidogrel 75 mg tablet 75 mg PO DAILY #90 tab 05/05/20 01/17/22 Rx erenumab-aooe 140 mg/mL 140 mg SQ MONTHLY 05/05/20 01/17/22 History subcutaneous auto-injector nitroglycerin 0.4 mg sublingual 0.4 mg SUBLINGUAL Q5MINP PRN tab 05/05/20 01/17/22 History tablet rosuvastatin 20 mg tablet See Rx Instructions .ROUTE 11/10/20 01/17/22 Rx .COMPLEX #90 tab fluticasone propionate 50 1 spray INTRANASAL QDAY 30 Days 07/28/21 01/17/22 Rx mcg/actuation nasal #9.9 g spray,suspension loratadine 10 mg tablet 10 mg PO DAILY #90 tab 07/28/21 01/17/22 Rx linaclotide 145 mcg capsule 145 mcg PO DAILY #30 cap 08/04/21 01/17/22 Rx montelukast 10 mg tablet 10 mg PO HS #90 tab 09/22/21 01/17/22 Rx fluticasone 250 mcg-salmeterol 50 See Rx Instructions .ROUTE 11/29/21 01/17/22 Rx mcg/dose blistr powdr for .COMPLEX #60 each inhalation sucralfate 100 mg/mL oral See Rx Instructions .ROUTE 11/29/21 01/17/22 Rx suspension .COMPLEX #900 ml ubrogepant 50 mg tablet 50 mg PO NEEDED PRN 12/06/21 01/17/22 History escitalopram oxalate 20 mg tablet See Rx Instructions .ROUTE 12/07/21 01/17/22 Rx .COMPLEX #90 tab albuterol sulfate 90 mcg/actuation 2 puff INHALATION Q6H #8.5 g 12/20/21 01/17/22 Rx aerosol inhaler diclofenac sodium 1 % topical gel See Rx Instructions .ROUTE 12/20/21 01/17/22 Rx .COMPLEX #100 g hydrocodone 10 mg-acetaminophen 1 tab PO TID #90 tab 01/04/22 01/17/22 Rx 325 mg tablet Gabapentin [Gabapentin 400mg Cap] 400 mg PO TID 01/17/22 01/17/22 History Venlafaxine HCl [Venlafaxine HCl 37.5 mg PO DAILY 01/17/22 01/17/22 History ER] Height: 1.7 m Weight: 74.2 kg Laboratory Results:: Laboratory Results - last 24 hr 01/16/22 22:30: Urine Color Yellow, Urine Appearance Cloudy, Urine pH 5.5, Ur Specific [place] >= 1.030, Urine Protein 2+, Urine Glucose (UA) 1+, Urine Ketones Negative, Urine Blood 3+, Urine Nitrate Positive, Urine Bilirubin Negative, Urine Urobilinogen 0.2, Ur Leukocyte Esterase Negative, Urine RBC 10-20, Urine WBC 5-10, Ur Squamous Epith Cells 5-10, Urine Bacteria 4+ 01/17/22 10:27: Sodium 137, Potassium 4.3, Chloride 111 H, Carbon Dioxide 20 L, Anion Gap 10.3, BUN 24 H, Creatinine 0.70 D, Estimated Creat Clear 105, Estimated GFR 87, Est GFR ( Amer) 105 D, Glucose 87, Calcium 7.7 L 01/17/22 10:34: Procalcitonin 5.95 H 01/17/22 11:00: WBC 22.9 H*, RBC 4.41, Hgb 12.3, Hct 39.0, MCV 88.5, MCH 27.8, MCHC 31.5 L, RDW 13.5, Plt Count 280, MPV 8.6, Neut % (Auto) 91.9 H, Lymph % (Auto) 4.4 L, [place] % (Auto) 3.3, Eos % (Auto) 0.2, Baso % (Auto) 0.2, Neut # (Auto) 21.1 H, Lymph # (Auto) 1.0, [place] # (Auto) 0.8, Eos # (Auto) 0.1, Baso # (Auto) 0.0, Total Counted 100, Neutrophils % (Manual) 92 H, Lymphocytes % (Manual) 8 L, Platelet Estimate Normal 01/18/22 05:26: WBC 17.3 H, RBC 4.08 L, Hgb 11.5 L, Hct 36.0 L, MCV 88.3, MCH 28.1, MCHC 31.8, RDW 13.6, Plt Count 220, MPV 8.6, Neut % (Auto) 87.7 H, Lymph % (Auto) 8.7 L, [place] % (Auto) 3.0, Eos % (Auto) 0.3, Baso % (Auto) 0.2, Neut # (Auto) 15.2 H, Lymph # (Auto) 1.5, [place] # (Auto) 0.5, Eos # (Auto) 0.1, Baso # (Auto) 0.0, Total Counted 100, Neutrophils % (Manual) 87 H, Lymphocytes % (Manual) 11, Monocytes % (Manual) 2, Platelet Estimate Normal 01/18/22 05:26: Sodium 140, Potassium 3.4 L D, Chloride 110 H, Carbon Dioxide 24, Anion Gap 9.4, BUN 11 D, Creatinine 0.40 L D, Estimated Creat Clear 184, Estimated GFR 165, Est GFR ( Amer) 200 D, Glucose 100, Calcium 8.4 Medical History: Reports:: Arrhythmia, Congenital Heart Disease, Coronary Artery Disease, Cerebrovascular Accid
--- NOTE | 2022-01-18 11:37 | HMH.PNCARD ---
Subjective Date: 01/18/22 Time: 11:37 Principal diagnosis: AMS Interval history: 56-year-old white female in bed in no acute distress. Patient continues to be difficult to arouse. Telemetry shows sinus rhythm with no significant arrhythmias. Echocardiogram shows EF 55-60% with no wall motion abnormalities and no significant valve disease. [employer] pacemaker was interrogated today. No alerts noted. Device is functioning well. Battery life is 14 years. A paced 7.5%, V paced 7.3%. Mode is DDDR with lower rate of 60 bpm upper tracking rate of 130 bpm. AT/AF percentage is 4.4%. Exam Vital signs and Labs for Last 24 Hours: Temp Pulse Resp BP Pulse Ox 97.8 F 89 16 161/84 H 98 01/18/22 08:00 01/18/22 08:00 01/18/22 08:00 01/18/22 08:00 01/18/22 08:00 Laboratory Results - last 24 hr 01/16/22 22:30: Urine Color Yellow, Urine Appearance Cloudy, Urine pH 5.5, Ur Specific [place] >= 1.030, Urine Protein 2+, Urine Glucose (UA) 1+, Urine Ketones Negative, Urine Blood 3+, Urine Nitrate Positive, Urine Bilirubin Negative, Urine Urobilinogen 0.2, Ur Leukocyte Esterase Negative, Urine RBC 10-20, Urine WBC 5-10, Ur Squamous Epith Cells 5-10, Urine Bacteria 4+ 01/17/22 10:27: Sodium 137, Potassium 4.3, Chloride 111 H, Carbon Dioxide 20 L, Anion Gap 10.3, BUN 24 H, Creatinine 0.70 D, Estimated Creat Clear 105, Estimated GFR 87, Est GFR ( Amer) 105 D, Glucose 87, Calcium 7.7 L 01/17/22 10:34: Procalcitonin 5.95 H 01/17/22 11:00: Total Counted 100, Neutrophils % (Manual) 92 H, Lymphocytes % (Manual) 8 L, Platelet Estimate Normal 01/18/22 05:26: WBC 17.3 H, RBC 4.08 L, Hgb 11.5 L, Hct 36.0 L, MCV 88.3, MCH 28.1, MCHC 31.8, RDW 13.6, Plt Count 220, MPV 8.6, Neut % (Auto) 87.7 H, Lymph % (Auto) 8.7 L, [place] % (Auto) 3.0, Eos % (Auto) 0.3, Baso % (Auto) 0.2, Neut # (Auto) 15.2 H, Lymph # (Auto) 1.5, [place] # (Auto) 0.5, Eos # (Auto) 0.1, Baso # (Auto) 0.0, Total Counted 100, Neutrophils % (Manual) 87 H, Lymphocytes % (Manual) 11, Monocytes % (Manual) 2, Platelet Estimate Normal 01/18/22 05:26: Sodium 140, Potassium 3.4 L D, Chloride 110 H, Carbon Dioxide 24, Anion Gap 9.4, BUN 11 D, Creatinine 0.40 L D, Estimated Creat Clear 184, Estimated GFR 165, Est GFR ( Amer) 200 D, Glucose 100, Calcium 8.4 I & O for Last 24 hours: Intake & Output 01/15/22 01/16/22 01/17/22 01/18/22 11:59 11:59 11:59 11:59 Intake Total 2255 / 2255 Output Total 2200 / 2200 Balance 55 / 55 Weight 163 lb 9.328 oz Microbiology Reports for the Last 24 Hours: Microbiology 01/16/22 22:30 Urine,Catheterized Urine Culture - Preliminary Gram Negative Rods 01/17/22 04:24 Ear - Right Gram Stain - Final 01/17/22 04:24 Ear - Right Wound Culture - Preliminary NO GROWTH AFTER 24 HOURS - *Routine Respiratory Exam Present: CTA bilaterally - *Routine Cardiovascular Exam Present: RRR Progress Note: A&P (1) Altered mental status Status: Acute (2) KHUSHBOO (acute kidney injury) Status: Acute (3) Abnormal drug screen Status: Acute (4) Elevated liver enzymes Status: Acute (5) Elevated troponin Status: Acute (6) Pacemaker Status: Acute (7) Rhabdomyolysis Status: Acute (8) Acute drug intoxication with delirium Status: Acute (9) Infection of ear, external, right Status: Acute Assessment and Plan for All Diagnoses:: 1. Altered mental status with positive drug screen for multiple substances, defer to primary team. 2. Elevated troponins likely related to the patient's decreased level of consciousness and cardiac strain. She does have a history of prior CA and coronary stenting approximately 2008 and 2010 but with recent normal stress test in 2018. Echocardiogram shows normal ejection fraction with no wall motion abnormalities. No plans for further evaluation at this time. 3. Pacemaker in situ for SSS, interrogated today and appears to be fu
--- NOTE | 2022-01-18 15:46 | PC.NURSE ---
Pt has went in between periods of restlessness to deep sleeping. She remains confused, unable to follow commands or answer questions. Right ear is swollen with purulent drainage. Right cheek is red and swollen. Right hand has +2 edema. She's been NSR with PVC's on telemetry. Her shipman is to bedside draining clear, yolie colored urine. 1300 mls out thus far. Bed is locked and in the lowest position, call with within reach.
--- NOTE | 2022-01-18 17:19 | HMH.ACPN2 ---
Internal Medicine - PN: Subj *Date: 01/18/22 *Time: 20:09 Interval history: 56-year-old female patient resting in bed quietly with eyes closed, she will respond to tactile stimuli by rolling over opening her eyes will not answer questions then went back to sleep. Current oxygenation 97% on room air plan for pacemaker to be interrogated today. Urine culture preliminary gram-negative rods, right ear wound culture no growth at 24 hours Exam Vital signs and Labs for Last 24 Hours: Temp Pulse Resp BP Pulse Ox 97.9 F 75 18 167/86 H 95 01/18/22 16:00 01/18/22 16:00 01/18/22 16:00 01/18/22 16:00 01/18/22 16:00 Laboratory Results - last 24 hr 01/16/22 22:30: Urine Color Yellow, Urine Appearance Cloudy, Urine pH 5.5, Ur Specific [place] >= 1.030, Urine Protein 2+, Urine Glucose (UA) 1+, Urine Ketones Negative, Urine Blood 3+, Urine Nitrate Positive, Urine Bilirubin Negative, Urine Urobilinogen 0.2, Ur Leukocyte Esterase Negative, Urine RBC 10-20, Urine WBC 5-10, Ur Squamous Epith Cells 5-10, Urine Bacteria 4+ 01/17/22 10:27: Sodium 137, Potassium 4.3, Chloride 111 H, Carbon Dioxide 20 L, Anion Gap 10.3, BUN 24 H, Creatinine 0.70 D, Estimated Creat Clear 105, Estimated GFR 87, Est GFR ( Amer) 105 D, Glucose 87, Calcium 7.7 L 01/18/22 05:26: WBC 17.3 H, RBC 4.08 L, Hgb 11.5 L, Hct 36.0 L, MCV 88.3, MCH 28.1, MCHC 31.8, RDW 13.6, Plt Count 220, MPV 8.6, Neut % (Auto) 87.7 H, Lymph % (Auto) 8.7 L, [place] % (Auto) 3.0, Eos % (Auto) 0.3, Baso % (Auto) 0.2, Neut # (Auto) 15.2 H, Lymph # (Auto) 1.5, [place] # (Auto) 0.5, Eos # (Auto) 0.1, Baso # (Auto) 0.0, Total Counted 100, Neutrophils % (Manual) 87 H, Lymphocytes % (Manual) 11, Monocytes % (Manual) 2, Platelet Estimate Normal 01/18/22 05:26: Sodium 140, Potassium 3.4 L D, Chloride 110 H, Carbon Dioxide 24, Anion Gap 9.4, BUN 11 D, Creatinine 0.40 L D, Estimated Creat Clear 184, Estimated GFR 165, Est GFR ( Amer) 200 D, Glucose 100, Calcium 8.4 I & O for Last 24 hours: Intake & Output 01/15/22 01/16/22 01/17/22 01/18/22 23:59 23:59 23:59 23:59 Intake Total 788 / 788 2077 / 2077 Output Total 600 / 1200 2900 / 2900 Balance 188 / -412 -823 / -823 Weight 148 lb 163 lb 9.328 oz 163 lb 2.273 oz Microbiology Reports for the Last 24 Hours: Microbiology 01/16/22 22:30 Urine,Catheterized Urine Culture - Preliminary Gram Negative Rods 01/17/22 04:24 Ear - Right Gram Stain - Final 01/17/22 04:24 Ear - Right Wound Culture - Preliminary NO GROWTH AFTER 24 HOURS - Constitutional no acute distress, chronically ill appearing - *Routine HEENT Exam Head: Present: normocephalic ENT: Present: mucous membranes moist - *Routine Neck Exam Present: trachea midline. Absent: tracheal deviation - *Routine Respiratory Exam Present: CTA bilaterally. Absent: accessory muscle use - *Routine Cardiovascular Exam Present: RRR - *Routine Abdominal Exam Present: soft, normoactive bowel sounds. Absent: tenderness, firm - *Routine Extremities Exam Present: pulses intact. Absent: cyanosis, edema - *Routine Skin Exam Present: intact, dry. Absent: cyanosis, erythema - *Routine Neurological Exam Present: altered mental status - Routine Psychiatric Exam Present: unable to assess Assessment and Plan (1) Altered mental status Status: Acute Qualifiers: Altered mental status type: delirium Qualified Code(s): R41.0 - Disorientation, unspecified Category: Medical Code(s): R41.82 - Altered mental status, unspecified (2) KHUSHBOO (acute kidney injury) Status: Acute Category: Medical Code(s): N17.9 - Acute kidney failure, unspecified (3) Abnormal drug screen Status: Acute Category: Medical Code(s): R89.2 - Abnormal level of other drugs, medicaments and biological substances in specimens from other organs, systems and tissues (4) Elevated liver enzymes Status: Acute Catego
--- NOTE | 2022-01-18 18:36 | PC.NURSE ---
Pt transported to 215 by Arabella Diaz and SHAWN Jimenez at this time. Report given to Dana Covarrubias RN earlier.
[2022-01-18 23:31] LABS: Vancomycin,Trough 10.8 ug/mL (5.0-10.0)
[2022-01-19] VITALS (9 sets, daily range): BP systolic 138–173; BP diastolic 67–83; PULSE 60–90; RESP 16–18; TEMP 36.2–36.8; O2SAT 92–99; BMI 20.4
[2022-01-19 03:42] LABS: Vancomycin,Peak 27.3 ug/ml (11-39)
--- NOTE | 2022-01-19 06:35 | PC.NURSE ---
Pt continues to sleep. Pt will turn/move extremities/open eyes when touched but will go right back to sleep. Hung catheter in place draining clear yellow urine. Bed alarm on for safety. Call mccrary within reach.
[2022-01-19 06:38] LABS: MANUAL DIFFERENTIAL MANUAL DIFFERENTIAL (MANUAL DIFF)
[2022-01-19 06:43] LABS: Basophils # 0.1 K/mm3 (0-0.2); Basophils % 0.4 % (0.1-2.0); Eosinophils # 0.1 K/mm3 (0.0-0.4); Eosinophils % 0.5 % (0.1-12.0); Hematocrit 39.7 % (37.0-47.0); Hemoglobin 12.9 g/dL (12.2-16.2); Lymphocytes # 1.6 K/mm3 (0.7-4.5); Lymphocytes % 12.3 % (10-50); Mean Corpuscular HGB Conc 32.6 g/dL (31.8-35.4); Mean Corpuscular Hemoglobin 27.8 pg (27.0-31.2); Mean Corpuscular Volume 85.3 fl (81-99); Monocytes # 0.5 K/mm3 (0.1-1.0); Monocytes % 4.1 % (1.7-9.3); Neutrophils % 82.8 % (37.0-80.0); Platelet Count 241 K/mm3 (142-424); Red Blood Count 4.66 M/mm3 (4.20-5.40); Red Cell Distribution Width 13.5 % (11.5-17.5); White Blood Count 13.3 K/mm3 (4.8-10.8)
[2022-01-19 06:56] LABS: Blood Urea Nitrogen 7 mg/dl (7-17); Calcium 8.7 mg/dl (8.4-10.2); Carbon Dioxide 21 mmol/L (22.0-30.0); Chloride 111 mmol/L (98-107); Creatinine Clearance Estimated 98 mL/min (50-200); Estimated Glomerular Filt Rate 103 ml/min (>60); GFR (African American) 125 ML/MIN (>60); Glucose 57 mg/dl (74-100); Sodium 143 mmol/L (136-145)
[2022-01-19 08:41] LABS: Lymphocytes % 14 % (10-50); Monocytes % 2 % (2-9); Neutrophils % 84 % (42-76); Total Cells Counted 100
[2022-01-19 08:43] LABS: Platelet Estimate Normal
--- NOTE | 2022-01-19 09:26 | HMH.PHACONS ---
- Pharmacy Consult Date: 01/19/22 Time: 09:29 Referring provider: DR. SEGOVIA Reason for Consult:: VANCOMYCIN LEVELS Allergies and ADEs:: Allergies Allergy/AdvReac Type Severity Reaction Status Date / Time aspirin Allergy Verified 01/04/22 11:04 codeine Allergy Verified 01/04/22 11:04 Home Medications:: Home Medications Medication Instructions Recorded Confirmed Type clopidogrel 75 mg tablet 75 mg PO DAILY #90 tab 05/05/20 01/17/22 Rx erenumab-aooe 140 mg/mL 140 mg SQ MONTHLY 05/05/20 01/17/22 History subcutaneous auto-injector nitroglycerin 0.4 mg sublingual 0.4 mg SUBLINGUAL Q5MINP PRN tab 05/05/20 01/17/22 History tablet rosuvastatin 20 mg tablet See Rx Instructions .ROUTE 11/10/20 01/17/22 Rx .COMPLEX #90 tab fluticasone propionate 50 1 spray INTRANASAL QDAY 30 Days 07/28/21 01/17/22 Rx mcg/actuation nasal #9.9 g spray,suspension loratadine 10 mg tablet 10 mg PO DAILY #90 tab 07/28/21 01/17/22 Rx linaclotide 145 mcg capsule 145 mcg PO DAILY #30 cap 08/04/21 01/17/22 Rx montelukast 10 mg tablet 10 mg PO HS #90 tab 09/22/21 01/17/22 Rx fluticasone 250 mcg-salmeterol 50 See Rx Instructions .ROUTE 11/29/21 01/17/22 Rx mcg/dose blistr powdr for .COMPLEX #60 each inhalation sucralfate 100 mg/mL oral See Rx Instructions .ROUTE 11/29/21 01/17/22 Rx suspension .COMPLEX #900 ml ubrogepant 50 mg tablet 50 mg PO NEEDED PRN 12/06/21 01/17/22 History escitalopram oxalate 20 mg tablet See Rx Instructions .ROUTE 12/07/21 01/17/22 Rx .COMPLEX #90 tab albuterol sulfate 90 mcg/actuation 2 puff INHALATION Q6H #8.5 g 12/20/21 01/17/22 Rx aerosol inhaler diclofenac sodium 1 % topical gel See Rx Instructions .ROUTE 12/20/21 01/17/22 Rx .COMPLEX #100 g hydrocodone 10 mg-acetaminophen 1 tab PO TID #90 tab 01/04/22 01/17/22 Rx 325 mg tablet Gabapentin [Gabapentin 400mg Cap] 400 mg PO TID 01/17/22 01/17/22 History Venlafaxine HCl [Venlafaxine HCl 37.5 mg PO DAILY 01/17/22 01/17/22 History ER] Height: 1.7 m Weight: 58.995 kg Laboratory Results:: Laboratory Results - last 24 hr 01/18/22 22:48: Vancomycin Trough 10.8 H 01/19/22 02:58: Vancomycin Peak 27.3 01/19/22 06:25: WBC 13.3 H, RBC 4.66, Hgb 12.9, Hct 39.7, MCV 85.3, MCH 27.8, MCHC 32.6, RDW 13.5, Plt Count 241, MPV 9.0, Neut % (Auto) 82.8 H, Lymph % (Auto) 12.3, [place] % (Auto) 4.1, Eos % (Auto) 0.5, Baso % (Auto) 0.4, Neut # (Auto) 11.0 H, Lymph # (Auto) 1.6, [place] # (Auto) 0.5, Eos # (Auto) 0.1, Baso # (Auto) 0.1, Total Counted 100, Neutrophils % (Manual) 84 H, Lymphocytes % (Manual) 14, Monocytes % (Manual) 2, Platelet Estimate Normal 01/19/22 06:25: Sodium 143, Potassium 3.0 L, Chloride 111 H, Carbon Dioxide 21 L, Anion Gap 14.0, BUN 7 D, Creatinine 0.60 D, Estimated Creat Clear 98, Estimated GFR 103, Est GFR ( Amer) 125 D, Glucose 57 L, Calcium 8.7 Medical History: Reports:: Arrhythmia, Congenital Heart Disease, Coronary Artery Disease, Cerebrovascular Accident, Gastroesophageal Reflux Disease(GERD), Heart Murmur, Internal Pacemaker, Migraine Denies:: Diabetes Mellitus Type 1, Diabetes Mellitus Type 2 Assessment and Plan (1) Altered mental status Status: Acute Qualifiers: Altered mental status type: delirium Qualified Code(s): R41.0 - Disorientation, unspecified Category: Medical Code(s): R41.82 - Altered mental status, unspecified (2) KHUSHBOO (acute kidney injury) Status: Acute Category: Medical Code(s): N17.9 - Acute kidney failure, unspecified (3) Abnormal drug screen Status: Acute Category: Medical Code(s): R89.2 - Abnormal level of other drugs, medicaments and biological substances in specimens from other organs, systems and tissues (4) Elevated liver enzymes Status: Acute Category: Medical Code(s): R74.8 - Abnormal levels of other serum enzymes (5) Elevated troponin Status: Acute Category: Medical Code(s): R77.8 - Other specified abnormalities of plasma proteins (6) Pa
--- NOTE | 2022-01-19 09:41 | HMH.ACPN2 ---
Internal Medicine - PN: Subj *Date: 01/20/22 *Time: 05:15 Interval history: 56 YOF lying in bed, awakens to tactile stimuli. She is lethargic and returns to sleep when undisturbed. Current oxygenation 98% on room air Exam Vital signs and Labs for Last 24 Hours: Temp Pulse Resp BP Pulse Ox 98.1 F 74 18 143/83 H 92 L 01/19/22 07:54 01/19/22 07:54 01/19/22 07:54 01/19/22 07:54 01/19/22 07:54 Laboratory Results - last 24 hr 01/18/22 22:48: Vancomycin Trough 10.8 H 01/19/22 02:58: Vancomycin Peak 27.3 01/19/22 06:25: WBC 13.3 H, RBC 4.66, Hgb 12.9, Hct 39.7, MCV 85.3, MCH 27.8, MCHC 32.6, RDW 13.5, Plt Count 241, MPV 9.0, Neut % (Auto) 82.8 H, Lymph % (Auto) 12.3, [place] % (Auto) 4.1, Eos % (Auto) 0.5, Baso % (Auto) 0.4, Neut # (Auto) 11.0 H, Lymph # (Auto) 1.6, [place] # (Auto) 0.5, Eos # (Auto) 0.1, Baso # (Auto) 0.1, Total Counted 100, Neutrophils % (Manual) 84 H, Lymphocytes % (Manual) 14, Monocytes % (Manual) 2, Platelet Estimate Normal 01/19/22 06:25: Sodium 143, Potassium 3.0 L, Chloride 111 H, Carbon Dioxide 21 L, Anion Gap 14.0, BUN 7 D, Creatinine 0.60 D, Estimated Creat Clear 98, Estimated GFR 103, Est GFR ( Amer) 125 D, Glucose 57 L, Calcium 8.7 I & O for Last 24 hours: Intake & Output 01/16/22 01/17/22 01/18/22 01/19/22 23:59 23:59 23:59 23:59 Intake Total 788 / 788 2076 / 2076 0 / 0 Output Total 600 / 1200 3340 / 4140 800 / 800 Balance 188 / -412 -1263 / -2063 -800 / -800 Weight 148 lb 163 lb 9.328 oz 163 lb 2.273 oz 130 lb 1 oz Microbiology Reports for the Last 24 Hours: Microbiology 01/16/22 22:30 Urine,Catheterized Urine Culture - Final Escherichia coli 01/17/22 04:24 Ear - Right Gram Stain - Final 01/17/22 04:24 Ear - Right Wound Culture - Preliminary NO GROWTH AFTER 48 HOURS 01/16/22 22:30 Blood Blood Culture - Preliminary NO GROWTH AFTER 48 HOURS 01/16/22 22:30 Blood Blood Culture - Preliminary NO GROWTH AFTER 48 HOURS - Constitutional no acute distress - *Routine HEENT Exam Head: Present: normocephalic Eye: Present: EOMI ENT: Present: mucous membranes moist - *Routine Neck Exam Present: trachea midline. Absent: tracheal deviation - *Routine Respiratory Exam Present: CTA bilaterally. Absent: accessory muscle use - *Routine Cardiovascular Exam Present: RRR - *Routine Abdominal Exam Present: soft, normoactive bowel sounds. Absent: firm - *Routine Extremities Exam Present: pulses intact. Absent: cyanosis, clubbing, edema - *Routine Skin Exam Present: intact, dry, warm, wounds. Absent: cyanosis, erythema Comments: Steri-strips L upper chest C/D/I - *Routine Neurological Exam Present: altered mental status - Routine Psychiatric Exam Present: unable to assess Assessment and Plan (1) Altered mental status Status: Acute Qualifiers: Altered mental status type: delirium Qualified Code(s): R41.0 - Disorientation, unspecified Category: Medical Code(s): R41.82 - Altered mental status, unspecified (2) KHUSHBOO (acute kidney injury) Status: Acute Category: Medical Code(s): N17.9 - Acute kidney failure, unspecified (3) Abnormal drug screen Status: Acute Category: Medical Code(s): R89.2 - Abnormal level of other drugs, medicaments and biological substances in specimens from other organs, systems and tissues (4) Elevated liver enzymes Status: Acute Category: Medical Code(s): R74.8 - Abnormal levels of other serum enzymes (5) Elevated troponin Status: Acute Category: Medical Code(s): R77.8 - Other specified abnormalities of plasma proteins (6) Pacemaker Status: Acute Category: Medical Code(s): Z95.0 - Presence of cardiac pacemaker (7) Rhabdomyolysis Status: Acute Qualifiers: Rhabdomyolysis type: non-traumatic Qualified Code(s): M62.82 - Rhabdomyolysis Catego
[2022-01-19 10:27] LABS: Creatine Kinase 607 U/L (30-135)
--- NOTE | 2022-01-19 11:44 | PC.NURSE ---
Spoke with Carter Matthew APRN, in RE to critical K, 2 runs of K ordered.
--- NOTE | 2022-01-19 14:58 | PC.NURSE ---
patient asleep in bed. call light within reach
--- NOTE | 2022-01-19 19:18 | PC.NURSE ---
Pt has continued to sleep this shift. Will awaken to voice, but continues to be non verbal. VSS. CB in reach and bed alarm in use.
[2022-01-20] VITALS (12 sets, daily range): BP systolic 148–188; BP diastolic 79–98; PULSE 65–94; RESP 14–18; TEMP 36–36.4; O2SAT 98–100
[2022-01-20 06:22] LABS: MANUAL DIFFERENTIAL MANUAL DIFFERENTIAL (MANUAL DIFF)
[2022-01-20 06:43] LABS: Basophils # 0.1 K/mm3 (0-0.2); Basophils % 0.5 % (0.1-2.0); Eosinophils # 0.1 K/mm3 (0.0-0.4); Eosinophils % 1.1 % (0.1-12.0); Hematocrit 39.7 % (37.0-47.0); Lymphocytes # 1.7 K/mm3 (0.7-4.5); Lymphocytes % 14.4 % (10-50); Mean Corpuscular HGB Conc 32.7 g/dL (31.8-35.4); Mean Corpuscular Hemoglobin 27.8 pg (27.0-31.2); Mean Platelet Volume 8.5 fl (7.4-10.4); Monocytes # 0.5 K/mm3 (0.1-1.0); Monocytes % 4.3 % (1.7-9.3); Neutrophils # 9.3 K/mm3 (1.8-7.8); Neutrophils % 79.7 % (37.0-80.0); Platelet Count 271 K/mm3 (142-424); Red Blood Count 4.67 M/mm3 (4.20-5.40); Red Cell Distribution Width 13.5 % (11.5-17.5); White Blood Count 11.7 K/mm3 (4.8-10.8)
[2022-01-20 06:44] LABS: Anion Gap 15.4 mEq/L (5-15); Blood Urea Nitrogen 7 mg/dl (7-17); Calcium 8.8 mg/dl (8.4-10.2); Carbon Dioxide 15 mmol/L (22.0-30.0); Chloride 112 mmol/L (98-107); Creatinine Clearance Estimated 96 mL/min (50-200); Estimated Glomerular Filt Rate 103 ml/min (>60); GFR (African American) 125 ML/MIN (>60); Potassium 3.4 mmoL/L (3.5-5.1); Sodium 139 mmol/L (136-145)
[2022-01-20 06:48] LABS: Glucose 48 mg/dl (74-100)
[2022-01-20 07:55] LABS: Lymphocytes % 15 % (10-50); Monocytes % 5 % (2-9); Neutrophils % 80 % (42-76); Platelet Estimate Normal; RBC Morphology Normal; Total Cells Counted 100
--- NOTE | 2022-01-20 09:23 | HMH.ACPN2 ---
Internal Medicine - PN: Subj *Date: 01/20/22 *Time: 11:58 Interval history: 56 YOF lying in bed, awakens to verbal stimuli. Current oxygenation 98% on room air. She is more alert today and moving all extremities. Glucose this morning was 48 she received 1 amp of D50. Urine culture has revealed E. coli and she is receiving vancomycin and ceftriaxone IV. Exam Vital signs and Labs for Last 24 Hours: Temp Pulse Resp BP Pulse Ox 97.3 F L 69 17 167/86 H 100 01/20/22 07:53 01/20/22 07:53 01/20/22 07:53 01/20/22 07:53 01/20/22 07:53 Laboratory Results - last 24 hr 01/19/22 06:25: Total Creatine Kinase 607 H* D 01/20/22 06:10: WBC 11.7 H, RBC 4.67, Hgb 13.0, Hct 39.7, MCV 85.0, MCH 27.8, MCHC 32.7, RDW 13.5, Plt Count 271, MPV 8.5, Neut % (Auto) 79.7, Lymph % (Auto) 14.4, [place] % (Auto) 4.3, Eos % (Auto) 1.1, Baso % (Auto) 0.5, Neut # (Auto) 9.3 H, Lymph # (Auto) 1.7, [place] # (Auto) 0.5, Eos # (Auto) 0.1, Baso # (Auto) 0.1, Total Counted 100, Neutrophils % (Manual) 80 H, Lymphocytes % (Manual) 15, Monocytes % (Manual) 5, Platelet Estimate Normal, RBC Morphology Normal 01/20/22 06:10: Sodium 139, Potassium 3.4 L, Chloride 112 H, Carbon Dioxide 15 L, Anion Gap 15.4 H, BUN 7, Creatinine 0.60, Estimated Creat Clear 96, Estimated GFR 103, Est GFR ( Amer) 125, Glucose 48 L, Calcium 8.8 I & O for Last 24 hours: Intake & Output 01/17/22 01/18/22 01/19/22 01/20/22 23:59 23:59 23:59 23:59 Intake Total 788 / 788 2077 / 2077 0 / 0 Output Total 600 / 1200 3340 / 4140 1950 / 3550 2225 / 2225 Balance 188 / -412 -1263 / -2063 -1950 / -3550 -2225 / -2225 Weight 163 lb 9.328 oz 163 lb 2.273 oz 130 lb 1 oz 127 lb 6.4 oz Microbiology Reports for the Last 24 Hours: Microbiology 01/17/22 04:24 Ear - Right Gram Stain - Final 01/17/22 04:24 Ear - Right Wound Culture - Preliminary 01/16/22 22:30 Urine,Catheterized Urine Culture - Final Escherichia coli - Constitutional no acute distress, chronically ill appearing - *Routine Respiratory Exam Present: CTA bilaterally. Absent: accessory muscle use - *Routine Cardiovascular Exam Present: RRR - *Routine Abdominal Exam Present: soft, normoactive bowel sounds. Absent: tenderness, firm - *Routine Extremities Exam Present: full ROM, pulses intact. Absent: cyanosis, clubbing, edema - *Routine Skin Exam Present: intact, dry. Absent: cyanosis, erythema - *Routine Neurological Exam Present: alert, altered mental status - Routine Psychiatric Exam Present: unable to assess Assessment and Plan (1) Altered mental status Status: Acute Qualifiers: Altered mental status type: delirium Qualified Code(s): R41.0 - Disorientation, unspecified Category: Medical Code(s): R41.82 - Altered mental status, unspecified (2) KHUSHBOO (acute kidney injury) Status: Acute Category: Medical Code(s): N17.9 - Acute kidney failure, unspecified (3) Abnormal drug screen Status: Acute Category: Medical Code(s): R89.2 - Abnormal level of other drugs, medicaments and biological substances in specimens from other organs, systems and tissues (4) Elevated liver enzymes Status: Acute Category: Medical Code(s): R74.8 - Abnormal levels of other serum enzymes (5) Elevated troponin Status: Acute Category: Medical Code(s): R77.8 - Other specified abnormalities of plasma proteins (6) Pacemaker Status: Acute Category: Medical Code(s): Z95.0 - Presence of cardiac pacemaker (7) Rhabdomyolysis Status: Acute Qualifiers: Rhabdomyolysis type: non-traumatic Qualified Code(s): M62.82 - Rhabdomyolysis Category: Medical Code(s): M62.82 - Rhabdomyolysis (8) Acute drug intoxication with delirium Status: Acute Category: Medical Code(s): F19.921 - Other psychoactive substance use, unspecified with intoxication with delirium (9) Infection of ear, external, right Status: Acute Category: Med
--- NOTE | 2022-01-20 09:25 | PC.NURSE ---
Notified RAY Houston of BP, manual BP obtained and charted
[2022-01-20 10:44] LABS: Glucose,Fasting 98 mg/dl (74-100)
--- NOTE | 2022-01-20 11:23 | PC.NURSE ---
RAY Houston notified of BP and rectal temp. Warm blankets applied
--- NOTE | 2022-01-20 11:39 | PC.NURSE ---
Addendum entered by Clara Houston RN 01/20/22 13:17: new orders entered by Carter Matthew at 1215. Original Note: called Dr Berger office about pt BP being elevated and no meds ordered. message left for Alberto to call back at [phone]
[2022-01-20 13:01] LABS: Anion Gap 18.4 mEq/L (5-15); Blood Urea Nitrogen 7 mg/dl (7-17); Calcium 9.1 mg/dl (8.4-10.2); Carbon Dioxide 13 mmol/L (22.0-30.0); Chloride 113 mmol/L (98-107); Creatinine Clearance Estimated 143 mL/min (50-200); Estimated Glomerular Filt Rate 165 ml/min (>60); GFR (African American) 200 ML/MIN (>60); Glucose 92 mg/dl (74-100); Potassium 4.4 mmoL/L (3.5-5.1); Sodium 140 mmol/L (136-145)
--- NOTE | 2022-01-20 13:13 | PC.NURSE ---
Pt started shift with 20 in l ua (started with US on previous shift), this iv infiltrated. New iv was started with US as well, 20in r ua. this IV also infiltrated. will attempt another IV with US as well.
--- NOTE | 2022-01-20 15:56 | PC.NURSE ---
Addendum entered by Clara Houston RN 01/20/22 16:41: per Carter Matthew pt HAS to have a IV line at this time. ER on unit to attempt line at this time, successfully started 20 r fa US Original Note: Notified Carter Beck that pt has dislodged 3rd IV this shift. the past 3 have been inserted via US. staff unable to locate any further veins to stick. pt has been alert this shift. when patients name is called, she will look at speaker. she will not respond verbally or in actions. pt is able to drink from a cup and straw and swallow pills without difficulty. pt is tearful periodically. she will sob/cry for a brief amount of time (less than 1-2 minutes) then she will nuzzle her face in the pillow and go back to sleep. lungs are clear, bowel sounds are active. awaiting orders from Carter Matthew at this time
[2022-01-21] VITALS (7 sets, daily range): BP systolic 111–186; BP diastolic 50–90; PULSE 73–107; RESP 14–19; TEMP 36.2–37.1; O2SAT 94–98; BMI 19.7
--- NOTE | 2022-01-21 06:49 | PC.NURSE ---
pt has been restless most of night, benadryl given x1 through the night with minimal results, pt's sister stayed most of night and left around 5am, pt incontinent of bowel and bladder and required frequent bed changes through the night, pt still non-verbal but will look at you when you speak her name, pt did answer what one time when her name was called, b/p has been elevated 180/81.
[2022-01-21 06:55] LABS: MANUAL DIFFERENTIAL MANUAL DIFFERENTIAL (MANUAL DIFF)
[2022-01-21 07:03] LABS: Basophils # 0.1 K/mm3 (0-0.2); Basophils % 0.7 % (0.1-2.0); Eosinophils # 0.1 K/mm3 (0.0-0.4); Eosinophils % 0.9 % (0.1-12.0); Hematocrit 38.6 % (37.0-47.0); Hemoglobin 12.9 g/dL (12.2-16.2); Lymphocytes # 1.8 K/mm3 (0.7-4.5); Lymphocytes % 15.6 % (10-50); Mean Corpuscular HGB Conc 33.5 g/dL (31.8-35.4); Mean Corpuscular Hemoglobin 27.8 pg (27.0-31.2); Mean Corpuscular Volume 82.9 fl (81-99); Mean Platelet Volume 8.3 fl (7.4-10.4); Monocytes # 0.7 K/mm3 (0.1-1.0); Monocytes % 6.1 % (1.7-9.3); Neutrophils % 76.8 % (37.0-80.0); Platelet Count 283 K/mm3 (142-424); Red Blood Count 4.66 M/mm3 (4.20-5.40); Red Cell Distribution Width 13.6 % (11.5-17.5); White Blood Count 11.8 K/mm3 (4.8-10.8)
[2022-01-21 07:21] LABS: Anion Gap 10.1 mEq/L (5-15); Blood Urea Nitrogen 3 mg/dl (7-17); Calcium 8.8 mg/dl (8.4-10.2); Carbon Dioxide 24 mmol/L (22.0-30.0); Chloride 110 mmol/L (98-107); Creatinine Clearance Estimated 141 mL/min (50-200); Estimated Glomerular Filt Rate 165 ml/min (>60); GFR (African American) 200 ML/MIN (>60); Glucose 146 mg/dl (74-100); Potassium 3.1 mmoL/L (3.5-5.1); Sodium 141 mmol/L (136-145)
[2022-01-21 08:52] LABS: Lymphocytes % 17 % (10-50); Monocytes % 7 % (2-9); Neutrophils % 76 % (42-76); Platelet Estimate Normal; RBC Morphology Normal; Total Cells Counted 100
--- NOTE | 2022-01-21 09:45 | HMH.OTEV ---
OT Inpatient Evaluation Rehab OT IP Evaluation Start: 01/20/22 08:15 Freq: ONCE Status: Complete Protocol: [facility] 01/21/22 09:39 [facility] [place] [facility] (Rec: 01/21/22 09:45 [facility] [id number]) Rehab OT IP Assessment Subjective History Pt unable to provide orientation questions. She did not speak during evaluation, but did answer yes and no questions. Pt was admitted on 01/17/22 due to altered mental status. Pt nodded her head yes that she was independent with all ADLs and IADLs prior to being in the hospital. She lived with her . The following information is copied from history and report: this patient presented to the ed -with altered mental status -per ems, patient was found this evening by her and was not responding to him with altered level of consciousness. Patients stated that she was normal last night when he saw her last.. Patient has swelling to her right ear, with redness and swelling noted to right cheek bone. possible drug use and hx of prev strokes - had battery changed in [place] for pacemaker on - pt was found in the ed with [facility] with drug use and had prob sepsis and swollen rt ear and pt was admitted with ivf and abx at this time Pt has a past medical history of: Arrhythmia, Congenital Heart Disease, Coronary Artery Disease, Cerebrovascular Accident, Gastroesophageal Reflux Disease(GERD), Heart Murmur, Internal Pacemaker, Migraine Subjective Pt sitting up in bed on arrival. Pt followed one step comma
[2022-01-21 09:57] LABS: Ammonia 29 umol/L (9-30)
--- NOTE | 2022-01-21 10:24 | HMH.ACPN ---
Internal Medicine - PN: Subj *Date: 01/21/22 *Time: 10:24 Exam Vital signs and Labs for Last 24 Hours: Temp Pulse Resp BP Pulse Ox 97.2 F L 76 16 186/84 H 94 L 01/21/22 07:27 01/21/22 07:27 01/21/22 07:27 01/21/22 07:27 01/21/22 07:27 Laboratory Results - last 24 hr 01/20/22 10:06: Fasting Glucose 98 01/20/22 12:17: Sodium 140, Potassium 4.4 D, Chloride 113 H, Carbon Dioxide 13 L, Anion Gap 18.4 H, BUN 7, Creatinine 0.40 L D, Estimated Creat Clear 143, Estimated GFR 165, Est GFR ( Amer) 200 D, Glucose 92 D, Calcium 9.1 01/21/22 06:46: WBC 11.8 H, RBC 4.66, Hgb 12.9, Hct 38.6, MCV 82.9, MCH 27.8, MCHC 33.5, RDW 13.6, Plt Count 283, MPV 8.3, Neut % (Auto) 76.8, Lymph % (Auto) 15.6, [place] % (Auto) 6.1, Eos % (Auto) 0.9, Baso % (Auto) 0.7, Neut # (Auto) 9.0 H, Lymph # (Auto) 1.8, [place] # (Auto) 0.7, Eos # (Auto) 0.1, Baso # (Auto) 0.1, Total Counted 100, Neutrophils % (Manual) 76, Lymphocytes % (Manual) 17, Monocytes % (Manual) 7, Platelet Estimate Normal, RBC Morphology Normal 01/21/22 06:46: Sodium 141, Potassium 3.1 L D, Chloride 110 H, Carbon Dioxide 24, Anion Gap 10.1, BUN 3 L D, Creatinine 0.40 L, Estimated Creat Clear 141, Estimated GFR 165, Est GFR ( Amer) 200, Glucose 146 H D, Calcium 8.8 01/21/22 09:22: Ammonia 29 I & O for Last 24 hours: Intake & Output 01/18/22 01/19/22 01/20/22 01/21/22 23:59 23:59 23:59 23:59 Intake Total 2076 / 2077 0 / 0 0 / 0 Output Total 3340 / 4140 1949 / 3549 2525 / 2525 Balance -1263 / -3 -1949 / -0 -252 / -252 0 / 0 Weight 74 kg 58.995 kg 57.788 kg 56.926 kg Microbiology Reports for the Last 24 Hours: Microbiology 01/17/22 04:24 Ear - Right Gram Stain - Final 01/17/22 04:24 Ear - Right Wound Culture - Preliminary Assessment and Plan (1) Altered mental status Status: Acute Qualifiers: Altered mental status type: delirium Qualified Code(s): R41.0 - Disorientation, unspecified Category: Medical Code(s): R41.82 - Altered mental status, unspecified (2) KHUSHBOO (acute kidney injury) Status: Acute Category: Medical Code(s): N17.9 - Acute kidney failure, unspecified (3) Abnormal drug screen Status: Acute Category: Medical Code(s): R89.2 - Abnormal level of other drugs, medicaments and biological substances in specimens from other organs, systems and tissues (4) Elevated liver enzymes Status: Acute Category: Medical Code(s): R74.8 - Abnormal levels of other serum enzymes (5) Elevated troponin Status: Acute Category: Medical Code(s): R77.8 - Other specified abnormalities of plasma proteins (6) Pacemaker Status: Acute Category: Medical Code(s): Z95.0 - Presence of cardiac pacemaker (7) Rhabdomyolysis Status: Acute Qualifiers: Rhabdomyolysis type: non-traumatic Qualified Code(s): M62.82 - Rhabdomyolysis Category: Medical Code(s): M62.82 - Rhabdomyolysis (8) Acute drug intoxication with delirium Status: Acute Category: Medical Code(s): F19.921 - Other psychoactive substance use, unspecified with intoxication with delirium (9) Infection of ear, external, right Status: Acute Category: Medical Code(s): H60.391 - Other infective otitis externa, right ear The patient's infection will respond to the chosen ABx?: Yes Is the patient receiving the right drug, dose, and route?: Yes Could a more targeted ABx be ordered?: No (WBC 11.8 STABLE, AFEBRILE, URINE-E. COLI SUSCEPTIBLE TO ROCEPHIN)
--- NOTE | 2022-01-21 11:42 | HMH.PTEV ---
Physical Therapy Evaluation Rehab PT IP Evaluation Start: 01/20/22 08:15 Freq: .once Status: Active Protocol: Document 01/21/22 11:37 PHORNE (Rec: 01/21/22 11:42 PHORNE [id number]) Subjective/History History History 56 yowf adm to [facility] with sepsis and UTI. She remains somewhat disoriented and not answering any questions at this time, but is more alert. Unknown prior living situation at this time. Subjective Subjective Pt does not speak during treatment, but did follow most commands well. Rehab PT IP Eval Objective Appearance Patient Behavior Impulsive,Wandering,Confused Difficulty following instructions mild Speech Pattern No Speech Ambulation Patient Able to Ambulate Yes Ambulation Observation IP General Gait Pattern Observation Shuffling Step Ambulation Distance (feet) 10 Ambulation Assistive Device None Ambulation Ability Minimal x 1 (25% assist) Balance Ability to Arise Able, uses arms to help Sitting Balance Leans or slides in chair Standing Balance Unsteady Dynamic Sitting Balance Ability Fair Dynamic Standing Balance Ability Poor Transfers Bed Transfer Ability Minimal x 1 (25% assist) Chair Transfer Ability Minimal x 1 (25% assist) Sit to Stand Bed Transfer Ability Minimal x 1 (25% assist) Sit to Stand Chair Transfer Ability Minimal x 1 (25% assist) Rehab PT IP prob,goals,plan Problems Date of Evaluation: 01/21/22 PT IP Problems Bed Mobility,Transfers,Gait, Self care,Safety Rehab Potential Rehab Potential Fair Plan PT Intervention Plan Bed Mobility,Transfers,Gait, Self care,Safety,Therapeutic Exercise PT Plan Frequency BID Duration LOS Discharge Goals Bed Transfer Ability Contact Guard/Hand Hold Sit to Stand Chair Transfer Ability Contact Guard/Hand Hold Ambulation Assistive Device None Ambulation Distance (feet) 30 Discharge Plan PT Discharge Plan Pt is currently most appropriate for rehab placement once medically stable. G -code Required No Eval Complexity Eval Charge Codes 03445 - Moderate Complexity PHYSICIAN CERTIFICATION: I certify the specified therapy services for Brandi Joseph are required, authorized, and re
--- NOTE | 2022-01-21 13:04 | HMH.ACPN2 ---
Internal Medicine - PN: Subj *Date: 01/21/22 *Time: 18:40 Interval history: shows some response to verbal stimuli repeat uds=thc mri not feasible due to ppm ct brain from 01-17-22 failed to demonstrate acute process motion artifact evident right ear is clinically improving w/vanco Exam Vital signs and Labs for Last 24 Hours: Temp Pulse Resp BP Pulse Ox 97.2 F L 90 16 186/84 H 94 L 01/21/22 07:27 01/21/22 08:00 01/21/22 07:27 01/21/22 07:27 01/21/22 07:27 Laboratory Results - last 24 hr 01/21/22 06:46: WBC 11.8 H, RBC 4.66, Hgb 12.9, Hct 38.6, MCV 82.9, MCH 27.8, MCHC 33.5, RDW 13.6, Plt Count 283, MPV 8.3, Neut % (Auto) 76.8, Lymph % (Auto) 15.6, [place] % (Auto) 6.1, Eos % (Auto) 0.9, Baso % (Auto) 0.7, Neut # (Auto) 9.0 H, Lymph # (Auto) 1.8, [place] # (Auto) 0.7, Eos # (Auto) 0.1, Baso # (Auto) 0.1, Total Counted 100, Neutrophils % (Manual) 76, Lymphocytes % (Manual) 17, Monocytes % (Manual) 7, Platelet Estimate Normal, RBC Morphology Normal 01/21/22 06:46: Sodium 141, Potassium 3.1 L D, Chloride 110 H, Carbon Dioxide 24, Anion Gap 10.1, BUN 3 L D, Creatinine 0.40 L, Estimated Creat Clear 141, Estimated GFR 165, Est GFR ( Amer) 200, Glucose 146 H D, Calcium 8.8 01/21/22 09:22: Ammonia 29 I & O for Last 24 hours: Intake & Output 01/18/22 01/19/22 01/20/22 01/21/22 23:59 23:59 23:59 23:59 Intake Total 2076 0 / 0 120 / 120 Output Total 3340 / 4140 1949 / 3549 2525 / 2525 Balance -3 / -2062 -1949 / -3549 -2524 / -2524 120 / 120 Weight 163 lb 2.273 oz 130 lb 1 oz 127 lb 6.4 oz 125 lb 8 oz Microbiology Reports for the Last 24 Hours: Microbiology 01/17/22 04:24 Ear - Right Gram Stain - Final 01/17/22 04:24 Ear - Right Wound Culture - Preliminary - Constitutional chronically ill appearing, somnolent - *Routine HEENT Exam Head: Present: normocephalic Eye: Absent: conjunctival icterus ENT: Absent: external ear normal - *Routine Neck Exam Present: supple. Absent: lymphadenopathy - *Routine Respiratory Exam Present: CTA bilaterally - *Routine Cardiovascular Exam Present: RRR - *Routine Abdominal Exam Present: soft, normoactive bowel sounds. Absent: tenderness - *Routine Extremities Exam Absent: cyanosis, clubbing, edema - *Routine Skin Exam Present: warm. Absent: rash - *Routine Neurological Exam Present: altered mental status, hearing grossly intact. Absent: alert, oriented X3, normal speech Assessment and Plan (1) Altered mental status Status: Acute Qualifiers: Altered mental status type: delirium Qualified Code(s): R41.0 - Disorientation, unspecified Category: Medical Code(s): R41.82 - Altered mental status, unspecified (2) KHUSHBOO (acute kidney injury) Status: Acute Category: Medical Code(s): N17.9 - Acute kidney failure, unspecified (3) Abnormal drug screen Status: Acute Category: Medical Code(s): R89.2 - Abnormal level of other drugs, medicaments and biological substances in specimens from other organs, systems and tissues (4) Elevated liver enzymes Status: Acute Category: Medical Code(s): R74.8 - Abnormal levels of other serum enzymes (5) Elevated troponin Status: Acute Category: Medical Code(s): R77.8 - Other specified abnormalities of plasma proteins (6) Pacemaker Status: Acute Category: Medical Code(s): Z95.0 - Presence of cardiac pacemaker (7) Rhabdomyolysis Status: Acute Qualifiers: Rhabdomyolysis type: non-traumatic Qualified Code(s): M62.82 - Rhabdomyolysis Category: Medical Code(s): M62.82 - Rhabdomyolysis (8) Acute drug intoxication with delirium Status: Acute Category: Medical Code(s): F19.921 - Other psychoactive substance use, unspecified with intoxication with delirium (9) Infection of ear, external, right Status: Acute Category: Medical Code(s): H60.391 - Other infective otitis externa, right ear - Assessment and plan all Dx Assessment and Plan
[2022-01-21 17:33] LABS: Vancomycin,Trough 12.6 ug/mL (5.0-10.0)
--- NOTE | 2022-01-21 18:03 | PC.NURSE ---
contacted nightwatch for vanc trough, orders received to keep current dose
[2022-01-21 18:18] LABS: Barbiturates Screen,Urine Negative ng/ml (<200)
[2022-01-21 18:19] LABS: Amphetamine/Metha Screen,Urine Negative ng/ml (<1000); Benzodiazepines Screen,Urine Negative ng/ml (<200)
[2022-01-21 18:20] LABS: Methadone Screen,Urine Negative ng/ml (<300)
[2022-01-21 18:21] LABS: Cannabinoid Screen,Urine Positive ng/ml (<50); Cocaine Screen,Urine Negative ng/ml (<300)
[2022-01-21 18:22] LABS: Opiate Screen,Urine Negative ng/ml (<300)
[2022-01-21 18:23] LABS: Phencyclidine Screen,Urine Negative ng/ml (<25)
--- NOTE | 2022-01-21 18:48 | CT_ITS ---
PROCEDURE INFORMATION: Exam: CT Head Without And With Contrast Exam date and time: 01/21/2022 6:48 PM Age: 56 years old Clinical indication: Altered mental status/memory loss; Additional info: Mentation changes TECHNIQUE: Imaging protocol: Computed tomography of the head without and with intravenous contrast. Radiation optimization: All CT scans at this facility use at least one of these dose optimization techniques: automated exposure control; mA and/or kV adjustment per patient size (includes targeted exams where dose is matched to clinical indication); or iterative reconstruction. Contrast material: ISOVUE 300; Contrast volume: 100 ml; Contrast route: IV; COMPARISON: CT HEAD/BRAIN WO CON 01/17/2022 8:59 PM FINDINGS: Brain: No abnormal regions of intracranial or extra-axial hemorrhage. Previously demonstrated regions of bilateral chronic basal ganglia infarctions are again demonstrated. These are better demonstrated on the current study secondary to contrast enhanced imaging. The distribution does not appear significantly changed. There are no regions of enhancement or mass effect. Accounting for differences in positioning and technique, the findings appear stable. Cerebral ventricles: The ventricles are normal in size and midline in position. Paranasal sinuses: Minimal regions of mucosal thickening again demonstrated within the paranasal sinuses. Mastoid air cells: Visualized mastoid air cells are well aerated. Bones/joints: Unremarkable. No acute fracture. Soft tissues: See Brain finding. Other findings: There is less motion artifact on the current study. IMPRESSION: 1. No evidence of an acute infarction. 2. Chronic bilateral foci of nonhemorrhagic infarctions involving the basal ganglia bilaterally. Findings most pronounced on the left. Accounting for differences in technique findings not significantly changed.
[2022-01-22] VITALS (9 sets, daily range): BP systolic 100–147; BP diastolic 53–82; PULSE 72–104; RESP 16–28; TEMP 36.5–37.3; O2SAT 96–99; BMI 19.8
--- NOTE | 2022-01-22 05:55 | PC.NURSE ---
Patient did not rest well thru this RN shift. Patient continued to be incontinent of bowel and urine. Patient continues to be non verbal and will shake head yes and no to questions.
--- NOTE | 2022-01-22 07:25 | PC.NURSE ---
Spoke with Marlys in respiratory about EEG order on pt. She said it will be done Monday morning.
[2022-01-22 07:31] LABS: MANUAL DIFFERENTIAL MANUAL DIFFERENTIAL (MANUAL DIFF)
[2022-01-22 07:48] LABS: Basophils # 0.2 K/mm3 (0-0.2); Basophils % 1.2 % (0.1-2.0); Eosinophils # 0.1 K/mm3 (0.0-0.4); Eosinophils % 0.4 % (0.1-12.0); Hematocrit 41.5 % (37.0-47.0); Lymphocytes # 2.9 K/mm3 (0.7-4.5); Lymphocytes % 22.3 % (10-50); Mean Corpuscular HGB Conc 34.1 g/dL (31.8-35.4); Mean Corpuscular Hemoglobin 28.7 pg (27.0-31.2); Mean Corpuscular Volume 84.2 fl (81-99); Mean Platelet Volume 9.6 fl (7.4-10.4); Monocytes % 7.9 % (1.7-9.3); Neutrophils # 8.8 K/mm3 (1.8-7.8); Neutrophils % 68.1 % (37.0-80.0); Platelet Count 346 K/mm3 (142-424); Red Blood Count 4.93 M/mm3 (4.20-5.40); White Blood Count 12.9 K/mm3 (4.8-10.8)
[2022-01-22 08:26] LABS: Hemoglobin 14.2 g/dL (12.2-16.2)
[2022-01-22 09:28] LABS: Chloride 106 mmol/L (98-107); Potassium 4.1 mmoL/L (3.5-5.1); Sodium 138 mmol/L (136-145)
[2022-01-22 09:31] LABS: Anion Gap 14.1 mEq/L (5-15); Blood Urea Nitrogen 4 mg/dl (7-17); Calcium 8.4 mg/dl (8.4-10.2); Carbon Dioxide 22 mmol/L (22.0-30.0); Creatinine Clearance Estimated 114 mL/min (50-200); Estimated Glomerular Filt Rate 128 ml/min (>60); GFR (African American) 154 ML/MIN (>60); Glucose 107 mg/dl (74-100)
[2022-01-22 10:42] LABS: Lymphocytes % 31 % (10-50); Monocytes % 7 % (2-9); Neutrophils % 62 % (42-76); Platelet Estimate Normal; Total Cells Counted 100
--- NOTE | 2022-01-22 14:36 | ECG_ITS ---
APPROVED REPORT Exam: Resting ECG HR:91 bpm ECG Measurements Heart Rate 91 AXES WV 186 P 73 QRSd 79 QRS -27 QT 328 T 123 QTc 377 Conclusion SINUS RHYTHM RIGHT ATRIAL ENLARGEMENT [0.3mV P-WAVE] LEFT ATRIAL ENLARGEMENT [-0.15mV P-WAVE IN V1/V2] BORDERLINE LEFT AXIS DEVIATION [QRS AXIS < -20] ST DEVIATION AND MODERATE T-WAVE ABNORMALITY, CONSIDER LATERAL ISCHEMIA [-0.1+ mV T-WAVE IN I/aVL/V5/V6] ABNORMAL ECG UNCONFIRMED REPORT Electronically signed by : Dayton Negrete MD 01/23/2022 13:51:46
--- NOTE | 2022-01-22 14:52 | HMH.ACPN2 ---
Internal Medicine - PN: Subj *Date: 01/22/22 *Time: 14:52 Interval history: Patient is slightly more alert today, is not very verbal though. Repeat CT was done yesterday, report pending. Pacemaker precludes MRI. White count is trending down, the right ear is clinically improved. Exam Vital signs and Labs for Last 24 Hours: Temp Pulse Resp BP Pulse Ox 98.3 F 103 H 18 129/55 L 99 01/22/22 11:38 01/22/22 12:00 01/22/22 11:38 01/22/22 11:38 01/22/22 11:38 Laboratory Results - last 24 hr 01/21/22 16:42: Vancomycin Trough 12.6 H 01/21/22 17:33: Urine Opiates Screen Negative, Urine Methadone Screen Negative, Ur Barbituates Screen Negative, Ur Phencyclidine Scrn Negative, Ur Amphetamines Screen Negative, U Benzodiazepines Scrn Negative, Urine Cocaine Screen Negative, U Marijuana (THC) Screen Positive H 01/22/22 06:30: WBC 12.9 H, RBC 4.93, Hgb 14.2 D, Hct 41.5, MCV 84.2, MCH 28.7, MCHC 34.1, RDW 14.0, Plt Count 346, MPV 9.6, Neut % (Auto) 68.1, Lymph % (Auto) 22.3, [place] % (Auto) 7.9, Eos % (Auto) 0.4, Baso % (Auto) 1.2, Neut # (Auto) 8.8 H, Lymph # (Auto) 2.9, [place] # (Auto) 1.0, Eos # (Auto) 0.1, Baso # (Auto) 0.2, Total Counted 100, Neutrophils % (Manual) 62, Lymphocytes % (Manual) 31, Monocytes % (Manual) 7, Platelet Estimate Normal, RBC Morphology Not Reportable 01/22/22 08:53: Sodium 138, Potassium 4.1 D, Chloride 106, Carbon Dioxide 22, Anion Gap 14.1, BUN 4 L D, Creatinine 0.50 L D, Estimated Creat Clear 114, Estimated GFR 128, Est GFR ( Amer) 154 D, Glucose 107 H, Calcium 8.4 I & O for Last 24 hours: Intake & Output 01/19/22 01/20/22 01/21/22 01/22/22 23:59 23:59 23:59 23:59 Intake Total 0 / 0 240 / 240 240 / 240 Output Total 1949 / 2524 Balance -1949 -2524 230 / 230 240 / 240 Weight 130 lb 1 oz 127 lb 6.4 oz 125 lb 8 oz 126 lb 3.2 oz Microbiology Reports for the Last 24 Hours: Microbiology 01/17/22 04:24 Ear - Right Gram Stain - Final 01/17/22 04:24 Ear - Right Wound Culture - Preliminary 01/16/22 22:30 Blood Blood Culture - Final NO GROWTH AFTER 5 DAYS 01/16/22 22:30 Blood Blood Culture - Final NO GROWTH AFTER 5 DAYS - Constitutional no acute distress, chronically ill appearing - *Routine HEENT Exam Head: Present: normocephalic Eye: Present: EOMI ENT: Present: mucous membranes moist. Absent: external ear normal - *Routine Neck Exam Present: supple. Absent: lymphadenopathy - *Routine Respiratory Exam Present: CTA bilaterally - *Routine Cardiovascular Exam Present: RRR - *Routine Abdominal Exam Present: soft, normoactive bowel sounds. Absent: tenderness - *Routine Extremities Exam Absent: cyanosis, clubbing, edema - *Routine Skin Exam Present: warm. Absent: rash - *Routine Neurological Exam Present: alert. Absent: oriented X3, normal speech, tremors Assessment and Plan (1) Altered mental status Status: Acute Qualifiers: Altered mental status type: delirium Qualified Code(s): R41.0 - Disorientation, unspecified Category: Medical Code(s): R41.82 - Altered mental status, unspecified (2) KHUSHBOO (acute kidney injury) Status: Acute Category: Medical Code(s): N17.9 - Acute kidney failure, unspecified (3) Abnormal drug screen Status: Acute Category: Medical Code(s): R89.2 - Abnormal level of other drugs, medicaments and biological substances in specimens from other organs, systems and tissues (4) Elevated liver enzymes Status: Acute Category: Medical Code(s): R74.8 - Abnormal levels of other serum enzymes (5) Elevated troponin Status: Acute Category: Medical Code(s): R77.8 - Other specified abnormalities of plasma proteins (6) Pacemaker Status: Acute Category: Medical Code(s): Z95.0 - Presence of cardiac pacemaker (7) Rhabdomyolysis Status: Acute Qualifiers: Rhabdomyolysis type: non-traumatic
--- NOTE | 2022-01-22 17:30 | PC.NURSE ---
Speech therapist notified of Speech eval on patient.
--- NOTE | 2022-01-22 17:35 | PC.NURSE ---
pt is alert @ times but does not respond verbally. she appears to have toruble swallowing and food/medications sometimes fall out of her mouth. notified MD. theron gandara
--- NOTE | 2022-01-22 18:55 | PC.NURSE ---
pt has become more alert as the shift has progressed. She is sitting up in bed, mom @ bedside. minimal verbal communication with her family
[2022-01-23] VITALS (11 sets, daily range): BP systolic 115–163; BP diastolic 64–91; PULSE 69–110; RESP 16–18; TEMP 36.4–37.2; O2SAT 97–99; BMI 19.8; BMI 19.3
[2022-01-23 07:13] LABS: MANUAL DIFFERENTIAL MANUAL DIFFERENTIAL (MANUAL DIFF)
[2022-01-23 07:29] LABS: Anion Gap 12.5 mEq/L (5-15); Blood Urea Nitrogen 4 mg/dl (7-17); Calcium 8.8 mg/dl (8.4-10.2); Carbon Dioxide 23 mmol/L (22.0-30.0); Chloride 107 mmol/L (98-107); Creatinine Clearance Estimated 113 mL/min (50-200); Estimated Glomerular Filt Rate 128 ml/min (>60); GFR (African American) 154 ML/MIN (>60); Glucose 137 mg/dl (74-100); Sodium 140 mmol/L (136-145)
[2022-01-23 07:42] LABS: Basophils # 0.1 K/mm3 (0-0.2); Basophils % 0.5 % (0.1-2.0); Eosinophils % 0.1 % (0.1-12.0); Hematocrit 41.9 % (37.0-47.0); Hemoglobin 13.8 g/dL (12.2-16.2); Lymphocytes # 1.9 K/mm3 (0.7-4.5); Lymphocytes % 11.7 % (10-50); Mean Corpuscular HGB Conc 32.9 g/dL (31.8-35.4); Mean Corpuscular Hemoglobin 27.5 pg (27.0-31.2); Mean Corpuscular Volume 83.6 fl (81-99); Mean Platelet Volume 9.3 fl (7.4-10.4); Monocytes % 6.2 % (1.7-9.3); Neutrophils # 13.2 K/mm3 (1.8-7.8); Neutrophils % 81.4 % (37.0-80.0); Platelet Count 333 K/mm3 (142-424); Red Blood Count 5.02 M/mm3 (4.20-5.40); Red Cell Distribution Width 14.1 % (11.5-17.5); White Blood Count 16.2 K/mm3 (4.8-10.8)
[2022-01-23 07:43] LABS: Potassium 2.5 mmoL/L (3.5-5.1)
[2022-01-23 08:26] LABS: Lymphocytes % 8 % (10-50); Monocytes % 6 % (2-9); Neutrophils % 86 % (42-76); Total Cells Counted 100
[2022-01-23 08:28] LABS: Platelet Estimate Normal
--- NOTE | 2022-01-23 09:44 | HMH.ACPN2 ---
Internal Medicine - PN: Subj *Date: 01/23/22 *Time: 09:44 Exam Vital signs and Labs for Last 24 Hours: Temp Pulse Resp BP Pulse Ox 97.8 F 69 17 152/82 H 98 01/23/22 07:16 01/23/22 07:16 01/23/22 07:16 01/23/22 09:08 01/23/22 07:16 Laboratory Results - last 24 hr 01/22/22 06:30: Total Counted 100, Neutrophils % (Manual) 62, Lymphocytes % (Manual) 31, Monocytes % (Manual) 7, Platelet Estimate Normal, RBC Morphology Not Reportable 01/22/22 08:53: Sodium 138, Potassium 4.1 D, Chloride 106, Carbon Dioxide 22, Anion Gap 14.1, BUN 4 L D, Creatinine 0.50 L D, Estimated Creat Clear 114, Estimated GFR 128, Est GFR ( Amer) 154 D, Glucose 107 H, Calcium 8.4 01/23/22 06:24: WBC 16.2 H D, RBC 5.02, Hgb 13.8, Hct 41.9, MCV 83.6, MCH 27.5, MCHC 32.9, RDW 14.1, Plt Count 333, MPV 9.3, Neut % (Auto) 81.4 H, Lymph % (Auto) 11.7, [place] % (Auto) 6.2, Eos % (Auto) 0.1, Baso % (Auto) 0.5, Neut # (Auto) 13.2 H, Lymph # (Auto) 1.9, [place] # (Auto) 1.0, Eos # (Auto) 0.0, Baso # (Auto) 0.1, Total Counted 100, Neutrophils % (Manual) 86 H, Lymphocytes % (Manual) 8 L, Monocytes % (Manual) 6, Platelet Estimate Normal 01/23/22 06:24: Sodium 140, Potassium 2.5 L* D, Chloride 107, Carbon Dioxide 23, Anion Gap 12.5, BUN 4 L, Creatinine 0.50 L, Estimated Creat Clear 113, Estimated GFR 128, Est GFR ( Amer) 154, Glucose 137 H D, Calcium 8.8 I & O for Last 24 hours: Intake & Output 01/20/22 01/21/22 01/22/22 01/24/22 23:59 23:59 23:59 00:59 Intake Total 240 / 240 480 / 480 240 / 240 Output Total 2525 / 2525 Balance -2525 / -2525 230 / 230 480 / 480 240 / 240 Weight 57.788 kg 56.926 kg 57.243 kg 57.107 kg Microbiology Reports for the Last 24 Hours: Microbiology 01/17/22 04:24 Ear - Right Gram Stain - Final 01/17/22 04:24 Ear - Right Wound Culture - Final Staphylococcus epidermidis Assessment and Plan (1) Altered mental status Status: Acute Qualifiers: Altered mental status type: delirium Qualified Code(s): R41.0 - Disorientation, unspecified Category: Medical Code(s): R41.82 - Altered mental status, unspecified (2) KHUSHBOO (acute kidney injury) Status: Acute Category: Medical Code(s): N17.9 - Acute kidney failure, unspecified (3) Abnormal drug screen Status: Acute Category: Medical Code(s): R89.2 - Abnormal level of other drugs, medicaments and biological substances in specimens from other organs, systems and tissues (4) Elevated liver enzymes Status: Acute Category: Medical Code(s): R74.8 - Abnormal levels of other serum enzymes (5) Elevated troponin Status: Acute Category: Medical Code(s): R77.8 - Other specified abnormalities of plasma proteins (6) Pacemaker Status: Acute Category: Medical Code(s): Z95.0 - Presence of cardiac pacemaker (7) Rhabdomyolysis Status: Acute Qualifiers: Rhabdomyolysis type: non-traumatic Qualified Code(s): M62.82 - Rhabdomyolysis Category: Medical Code(s): M62.82 - Rhabdomyolysis (8) Acute drug intoxication with delirium Status: Acute Category: Medical Code(s): F19.921 - Other psychoactive substance use, unspecified with intoxication with delirium (9) Infection of ear, external, right Status: Acute Category: Medical Code(s): H60.391 - Other infective otitis externa, right ear The patient's infection will respond to the chosen ABx?: Yes (EAR WOUND CULTURE = STAPH EPI, VANCOMYCIN SUSCEPTIBLE) Is the patient receiving the right drug, dose, and route?: Yes Could a more targeted ABx be ordered?: No
--- NOTE | 2022-01-23 13:42 | HMH.ACPN2 ---
Internal Medicine - PN: Subj *Date: 01/23/22 *Time: 13:42 Interval history: more alert more verbal hypokalemic, will correct uc=ecoli, pansensitive right ear infection good clinical response to iv vanc Exam Vital signs and Labs for Last 24 Hours: Temp Pulse Resp BP Pulse Ox 98.7 F 104 H 18 115/64 98 01/23/22 11:27 01/23/22 11:27 01/23/22 11:27 01/23/22 13:31 01/23/22 11:27 Laboratory Results - last 24 hr 01/23/22 06:24: WBC 16.2 H D, RBC 5.02, Hgb 13.8, Hct 41.9, MCV 83.6, MCH 27.5, MCHC 32.9, RDW 14.1, Plt Count 333, MPV 9.3, Neut % (Auto) 81.4 H, Lymph % (Auto) 11.7, [place] % (Auto) 6.2, Eos % (Auto) 0.1, Baso % (Auto) 0.5, Neut # (Auto) 13.2 H, Lymph # (Auto) 1.9, [place] # (Auto) 1.0, Eos # (Auto) 0.0, Baso # (Auto) 0.1, Total Counted 100, Neutrophils % (Manual) 86 H, Lymphocytes % (Manual) 8 L, Monocytes % (Manual) 6, Platelet Estimate Normal 01/23/22 06:24: Sodium 140, Potassium 2.5 L* D, Chloride 107, Carbon Dioxide 23, Anion Gap 12.5, BUN 4 L, Creatinine 0.50 L, Estimated Creat Clear 113, Estimated GFR 128, Est GFR ( Amer) 154, Glucose 137 H D, Calcium 8.8 I & O for Last 24 hours: Intake & Output 01/20/22 01/21/22 01/22/22 01/24/22 23:59 23:59 23:59 00:59 Intake Total 240 / 240 480 / 480 720 / 720 Output Total 2525 / 2525 Balance -2525 / -2525 230 / 230 480 / 480 720 / 720 Weight 127 lb 6.4 oz 125 lb 8 oz 126 lb 3.2 oz 125 lb 14.4 oz Microbiology Reports for the Last 24 Hours: Microbiology 01/17/22 04:24 Ear - Right Gram Stain - Final 01/17/22 04:24 Ear - Right Wound Culture - Final Staphylococcus epidermidis - Constitutional no acute distress, cooperative - *Routine HEENT Exam Head: Present: normocephalic Eye: Present: EOMI ENT: Absent: external ear normal - *Routine Neck Exam Present: supple. Absent: lymphadenopathy - *Routine Respiratory Exam Present: CTA bilaterally - *Routine Cardiovascular Exam Present: RRR - *Routine Abdominal Exam Present: soft, normoactive bowel sounds. Absent: tenderness - *Routine Extremities Exam Absent: cyanosis, clubbing, edema - *Routine Skin Exam Present: warm. Absent: rash - *Routine Neurological Exam Present: alert, vision grossly intact, hearing grossly intact. Absent: normal speech Assessment and Plan (1) Altered mental status Status: Acute Qualifiers: Altered mental status type: delirium Qualified Code(s): R41.0 - Disorientation, unspecified Category: Medical Code(s): R41.82 - Altered mental status, unspecified (2) KHUSHBOO (acute kidney injury) Status: Acute Category: Medical Code(s): N17.9 - Acute kidney failure, unspecified (3) Abnormal drug screen Status: Acute Category: Medical Code(s): R89.2 - Abnormal level of other drugs, medicaments and biological substances in specimens from other organs, systems and tissues (4) Elevated liver enzymes Status: Acute Category: Medical Code(s): R74.8 - Abnormal levels of other serum enzymes (5) Elevated troponin Status: Acute Category: Medical Code(s): R77.8 - Other specified abnormalities of plasma proteins (6) Pacemaker Status: Acute Category: Medical Code(s): Z95.0 - Presence of cardiac pacemaker (7) Rhabdomyolysis Status: Acute Qualifiers: Rhabdomyolysis type: non-traumatic Qualified Code(s): M62.82 - Rhabdomyolysis Category: Medical Code(s): M62.82 - Rhabdomyolysis (8) Acute drug intoxication with delirium Status: Acute Category: Medical Code(s): F19.921 - Other psychoactive substance use, unspecified with intoxication with delirium (9) Infection of ear, external, right Status: Acute Category: Medical Code(s): H60.391 - Other infective otitis externa, right ear - Assessment and plan all Dx Assessment and Plan for all problems:: correct electrolytes continue current iv abx regimen
--- NOTE | 2022-01-23 14:27 | HMH.SLDYSPHA ---
Speech & Language Evaluation Speech/Language Dysphagia Evaluation Start: 01/23/22 13:59 Freq: ONCE Status: Active Protocol: Document 01/23/22 13:59 CMAY (Rec: 01/23/22 14:26 CMAY [id number]) Dysphagia Assess/Goals/Plan Assessment Date of Evaluation: 01/23/22 Evaluation Type Initial Certification Assessment/Problems Dysphagia; NSG reports patient pocketing pills and pills/ food falling out of mouth and having difficulty with meats. Does Patient Qualify for Service No Qualify/Failure Comment Patient does not qualify for ST services at this time based on the results of today's evaluation. Dietary changes were implemented for patient's safety during intake. Recommendations PHYSICIAN CERTIFICATION: The specified therapy services are required, authorized, and reviewed every 30 days. Diet Recommendations Mechanical Soft Ground Meats Liquid Type Recommendations Normal/Thin SL Swallow Guidelines Assist w/all meals,Alt bite w/ sip thru meal,Standard Aspiration Prec.,Chk mough for pocketing,Crush meds as allowed*,Oral Care Education, Oral care pre/post meals Crush Meds Crush all meds Dysphagia Swallow Precautions/Strategies Sitting Upright (90 deg),Small Bites and Sips,Alternate Liquids/Solids Plan Pt/Guardian verbally ack understanding Yes of dx/prognosis/goals G -code Required No Education Instructions provided Education provided to patient and NSG regarding swallowing safety strategies to implement such as sitting upright for intake, alternating bites/sips , taking small bites/sips, crushing pills, performing oral care following meals, and providing assistance with all meals. Reinforcement needed Pt nodded head yes following education but reinforcement may be needed Speech & Language HPI History Present Illness Description of Patient Problem NSG reports patient pocketing pills and pills/food falling out of mouth and having difficulty with meats. Pt/Caregiver Concerns
[2022-01-24] VITALS (9 sets, daily range): BP systolic 115–142; BP diastolic 56–73; PULSE 70–105; RESP 16–19; TEMP 36.6–37.1; O2SAT 95–99; BMI 19.2
[2022-01-24 06:19] LABS: MANUAL DIFFERENTIAL MANUAL DIFFERENTIAL (MANUAL DIFF)
[2022-01-24 06:48] LABS: Anion Gap 11.2 mEq/L (5-15); Blood Urea Nitrogen 3 mg/dl (7-17); Calcium 8.6 mg/dl (8.4-10.2); Carbon Dioxide 23 mmol/L (22.0-30.0); Chloride 105 mmol/L (98-107); Creatinine Clearance Estimated 138 mL/min (50-200); Estimated Glomerular Filt Rate 165 ml/min (>60); GFR (African American) 200 ML/MIN (>60); Glucose 112 mg/dl (74-100); Potassium 3.2 mmoL/L (3.5-5.1); Sodium 136 mmol/L (136-145)
[2022-01-24 06:56] LABS: Basophils # 0.1 K/mm3 (0-0.2); Basophils % 0.8 % (0.1-2.0); Eosinophils # 0.1 K/mm3 (0.0-0.4); Eosinophils % 0.5 % (0.1-12.0); Hematocrit 33.9 % (37.0-47.0); Lymphocytes # 1.9 K/mm3 (0.7-4.5); Lymphocytes % 19.4 % (10-50); Mean Corpuscular HGB Conc 34.8 g/dL (31.8-35.4); Mean Corpuscular Hemoglobin 29.1 pg (27.0-31.2); Mean Corpuscular Volume 83.6 fl (81-99); Mean Platelet Volume 9.1 fl (7.4-10.4); Monocytes # 0.7 K/mm3 (0.1-1.0); Monocytes % 6.8 % (1.7-9.3); Neutrophils # 7.1 K/mm3 (1.8-7.8); Neutrophils % 72.6 % (37.0-80.0); Platelet Count 429 K/mm3 (142-424); Red Blood Count 4.06 M/mm3 (4.20-5.40); Red Cell Distribution Width 14.1 % (11.5-17.5); White Blood Count 9.8 K/mm3 (4.8-10.8)
--- NOTE | 2022-01-24 09:36 | P.PN_ITS ---
Internal Medicine - PN: Subj *Date: 01/24/22 *Time: 08:30 Interval history: pt laying in bed having eeg. pt arouses when spoken to Exam Vital signs and Labs for Last 24 Hours: Temp Pulse Resp BP Pulse Ox 98.7 F 100 H 18 142/73 H 98 01/24/22 07:41 01/24/22 08:00 01/24/22 07:41 01/24/22 07:41 01/24/22 07:41 Laboratory Results - last 24 hr 01/24/22 05:55: Sodium 136, Potassium 3.2 L D, Chloride 105, Carbon Dioxide 23, Anion Gap 11.2, BUN 3 L, Creatinine 0.40 L, Estimated Creat Clear 138, Estimated GFR 165, Est GFR ( Amer) 200 D, Glucose 112 H, Calcium 8.6 I & O for Last 24 hours: Intake & Output 01/21/22 01/22/22 01/23/22 01/24/22 10:59 10:59 11:59 11:59 Intake Total 840 / 840 Output Total Balance 840 / 840 Weight 122 lb 9.6 oz Microbiology Reports for the Last 24 Hours: Microbiology 01/17/22 04:24 Ear - Right Gram Stain - Final 01/17/22 04:24 Ear - Right Wound Culture - Final Staphylococcus epidermidis - Constitutional no acute distress, chronically ill appearing - *Routine HEENT Exam Head: Present: normocephalic Eye: Present: PERRL ENT: Present: mucous membranes moist - *Routine Neck Exam Present: supple. Absent: lymphadenopathy - *Routine Respiratory Exam Present: CTA bilaterally - *Routine Cardiovascular Exam Present: RRR - *Routine Abdominal Exam Present: soft, normoactive bowel sounds. Absent: tenderness - *Routine Extremities Exam Absent: cyanosis, clubbing, edema - *Routine Skin Exam Present: warm. Absent: rash - *Routine Neurological Exam Present: alert Assessment and Plan (1) Altered mental status Status: Acute Qualifiers: Altered mental status type: delirium Qualified Code(s): R41.0 - Disorientation, unspecified Category: Medical Code(s): R41.82 - Altered mental status, unspecified (2) KHUSHBOO (acute kidney injury) Status: Acute Category: Medical Code(s): N17.9 - Acute kidney failure, unspecified (3) Abnormal drug screen Status: Acute Category: Medical Code(s): R89.2 - Abnormal level of other drugs, medicaments and biological substances in specimens from other organs, systems and tissues (4) Elevated liver enzymes Status: Acute Category: Medical Code(s): R74.8 - Abnormal levels of other serum enzymes (5) Elevated troponin Status: Acute Category: Medical Code(s): R77.8 - Other specified abnormalities of plasma proteins (6) Pacemaker Status: Acute Category: Medical Code(s): Z95.0 - Presence of cardiac p acemaker (7) Rhabdomyolysis Status: Acute Qualifiers: Rhabdomyolysis type: non-traumatic Qualified Code(s): M62.82 - Rhabdomyolysis Category: Medical Code(s): M62.82 - Rhabdomyolysis (8) Acute drug intoxication with delirium Status: Acute Category: Medical Code(s): F19.921 - Other psychoactive substance use, unspecified with intoxication with delirium (9) Infection of ear, external, right Status: Acute Category: Medical Code(s): H60.391 - Other infective otitis externa, right ear - Assessment and plan all Dx Assessment and Plan for all problems:: rounded with dr dennis all orders per dr dennis continue to monitor eeg
[2022-01-24 10:29] LABS: Hemoglobin 11.8 g/dL (12.2-16.2)
[2022-01-24 10:33] LABS: Eosinophils % 1 % (0-3); Lymphocytes % 21 % (10-50); Monocytes % 9 % (2-9); Neutrophils % 69 % (42-76); Platelet Estimate Normal; RBC Morphology Normal; Total Cells Counted 100
--- NOTE | 2022-01-24 11:29 | DIET.NUTRFU ---
Patient was seen by speech for swallowing over weekend secondary to pocketing some pills. She was ordered MSOFT with ground meat d/t poor dentition, no aspiration indicated. Patients meal intake has been poor only 25% of meals consumed. She is at risk for weight loss based on meal intake. Started Ensure TID with meals to help meet nutritional needs if consumed. Tried to review food preferences at previous visit and patient is not very verbal, does not likes answering a lot of questions.
--- NOTE | 2022-01-24 12:13 | PC.NURSE ---
PT IS SITTING UP IN THE CHAIR. ALERT TO SELF ONLY. DURING ASSESSMENT THIS MORNING PT WAS ABLE TO ANSWER SIMPLE YES OR NO QUESTIONS AND FOLLOW SIMPLE COMMANDS HOWEVER PT IS NOT ALWAYS CONSISTENT WITH THIS. RESPIRATORY STATED BEFORE PT'S EEG AND WHEN PHYSICIAN'S DID THEIR ROUNDS PT WOULD NOT TALK AT ALL. LUNG SOUNDS CLEAR. ABDOMEN SOFT/NON TENDER WITH ACTIVE BOWEL SOUNDS. PT IS STILL INCONTINENT OF BOWEL/BLADDER. WILL CONTINUE TO MONITOR.
--- NOTE | 2022-01-24 13:48 | SW/DCPLANNER ---
Addendum entered by Rhonda Barrow 01/25/22 10:28: Patients was present during morning rounds. is aware that patient will be medically stable for discharge tomorrow. Husbands plan is to return home with patient, someone with patient 24/7 and return to [facility] for outpatient PT. Original Note: I spoke with this patients regarding plans once this patient is medically stable for discharge. originally stated that he was working to find a home health agency for this patient. I explained to patients that at this time there are no home health agencies in network with patients insurance. then stated that they have a family friend that would be able to stay with patient while he is at work. I explained to patient that we could offer outpatient PT services for this patient at [facility] if needed at time of discharge and he is agreeable. At this time husbands plan is for patient to discharge home, someone will be with patient 24/7 and would have transportation to outpatient PT/OT services if needed at time of discharge.
[2022-01-25] VITALS (9 sets, daily range): BP systolic 120–133; BP diastolic 63–87; PULSE 80–107; RESP 15–18; TEMP 36.3–36.7; O2SAT 95–100; BMI 19.1
[2022-01-25 07:05] LABS: Basophils # 0.1 K/mm3 (0-0.2); Basophils % 0.9 % (0.1-2.0); Mean Platelet Volume 9.2 fl (7.4-10.4); Monocytes # 0.8 K/mm3 (0.1-1.0); Red Cell Distribution Width 13.9 % (11.5-17.5)
[2022-01-25 07:10] LABS: Anion Gap 11.7 mEq/L (5-15); Blood Urea Nitrogen 8 mg/dl (7-17); Calcium 8.6 mg/dl (8.4-10.2); Carbon Dioxide 25 mmol/L (22.0-30.0); Chloride 104 mmol/L (98-107); Creatinine Clearance Estimated 137 mL/min (50-200); Estimated Glomerular Filt Rate 165 ml/min (>60); GFR (African American) 200 ML/MIN (>60); Glucose 109 mg/dl (74-100); Sodium 138 mmol/L (136-145)
[2022-01-25 07:33] LABS: Eosinophils # 0.1 K/mm3 (0.0-0.4); Eosinophils % 1.2 % (0.1-12.0); Hematocrit 42.2 % (37.0-47.0); Lymphocytes # 1.3 K/mm3 (0.7-4.5); Lymphocytes % 12.8 % (10-50); Mean Corpuscular HGB Conc 32.4 g/dL (31.8-35.4); Mean Corpuscular Hemoglobin 27.8 pg (27.0-31.2); Mean Corpuscular Volume 85.9 fl (81-99); Monocytes % 7.3 % (1.7-9.3); Neutrophils # 8.2 K/mm3 (1.8-7.8); Neutrophils % 77.8 % (37.0-80.0); Platelet Count 360 K/mm3 (142-424); Red Blood Count 4.91 M/mm3 (4.20-5.40); White Blood Count 10.5 K/mm3 (4.8-10.8)
[2022-01-25 08:01] LABS: Potassium 2.7 mmoL/L (3.5-5.1)
--- NOTE | 2022-01-25 08:07 | PC.NURSE ---
Ivis Matthew APRN notified of critical K+ of 2.7.
--- NOTE | 2022-01-25 10:12 | HMH.ACPN2 ---
Internal Medicine - PN: Subj *Date: 01/25/22 *Time: 20:33 Interval history: 56-year-old female patient sitting up in bed she is alert and oriented to first name, location, her family physician, , and disoriented as to last name and date. at bedside reports that she is confused in certain areas. Discussed discharge to a intermediate for further rehab, he states they will discuss it and give decision tomorrow. Current oxygenation 99% on room air Exam Vital signs and Labs for Last 24 Hours: Temp Pulse Resp BP Pulse Ox 97.8 F 107 H 18 121/73 100 01/25/22 08:00 01/25/22 08:00 01/25/22 08:00 01/25/22 08:00 01/25/22 08:00 Laboratory Results - last 24 hr 01/24/22 05:55: WBC 9.8 D, RBC 4.06 L, Hgb 11.8 L D, Hct 33.9 L, MCV 83.6, MCH 29.1, MCHC 34.8, RDW 14.1, Plt Count 429 H D, MPV 9.1, Neut % (Auto) 72.6, Lymph % (Auto) 19.4, [place] % (Auto) 6.8, Eos % (Auto) 0.5, Baso % (Auto) 0.8, Neut # (Auto) 7.1, Lymph # (Auto) 1.9, [place] # (Auto) 0.7, Eos # (Auto) 0.1, Baso # (Auto) 0.1, Total Counted 100, Neutrophils % (Manual) 69, Lymphocytes % (Manual) 21, Monocytes % (Manual) 9, Eosinophils % (Manual) 1, Platelet Estimate Normal, RBC Morphology Normal 01/25/22 05:53: WBC 10.5, RBC 4.91, Hct 42.2, MCV 85.9, MCH 27.8, MCHC 32.4, RDW 13.9, Plt Count 360, MPV 9.2, Neut % (Auto) 77.8, Lymph % (Auto) 12.8, [place] % (Auto) 7.3, Eos % (Auto) 1.2, Baso % (Auto) 0.9, Neut # (Auto) 8.2 H, Lymph # (Auto) 1.3, [place] # (Auto) 0.8, Eos # (Auto) 0.1, Baso # (Auto) 0.1 01/25/22 05:53: Sodium 138, Potassium 2.7 L*, Chloride 104, Carbon Dioxide 25, Anion Gap 11.7, BUN 8 D, Creatinine 0.40 L, Estimated Creat Clear 137, Estimated GFR 165, Est GFR ( Amer) 200, Glucose 109 H, Calcium 8.6 I & O for Last 24 hours: Intake & Output 01/22/22 01/23/22 01/24/22 01/25/22 22:59 23:59 23:59 23:59 Intake Total 180 / 180 Balance 180 / 180 Weight 122 lb 9.6 oz 122 lb 2 oz - Constitutional no acute distress, chronically ill appearing - *Routine HEENT Exam Head: Present: normocephalic Eye: Present: EOMI ENT: Present: mucous membranes moist - *Routine Neck Exam Present: trachea midline. Absent: tracheal deviation - *Routine Respiratory Exam Present: CTA bilaterally. Absent: accessory muscle use - *Routine Cardiovascular Exam Present: RRR - *Routine Abdominal Exam Present: soft, normoactive bowel sounds. Absent: tenderness, firm - *Routine Extremities Exam Present: full ROM, pulses intact. Absent: cyanosis, clubbing, edema, calf tenderness - *Routine Skin Exam Present: erythema, dry, wounds. Absent: cyanosis Comments: Healing wound to right ear Less edematous - *Routine Neurological Exam Present: alert, altered mental status. Absent: motor deficit - Routine Psychiatric Exam Present: cooperative. Absent: normal thought process Assessment and Plan (1) Altered mental status Status: Acute Qualifiers: Altered mental status type: delirium Qualified Code(s): R41.0 - Disorientation, unspecified Category: Medical Code(s): R41.82 - Altered mental status, unspecified (2) KHUSHBOO (acute kidney injury) Status: Acute Category: Medical Code(s): N17.9 - Acute kidney failure, unspecified (3) Abnormal drug screen Status: Acute Category: Medical Code(s): R89.2 - Abnormal level of other drugs, medicaments and biological substances in specimens from other organs, systems and tissues (4) Elevated liver enzymes Status: Acute Category: Medical Code(s): R74.8 - Abnormal levels of other serum enzymes (5) Elevated troponin Status: Acute Category: Medical Code(s): R77.8 - Other specified abnormalities of plasma proteins (6) Pacemaker Status: Acute Category: Medical Code(s): Z95.0 - Presence of cardiac pacemaker (7) Rhabdomyolysis Status: Acute Qualifiers: Rhabdomyolysis type: non-traumatic Qualified Code(s): M62.82 - Rhabdomyolysis Category: Medical Co
--- NOTE | 2022-01-25 10:21 | DIET.NUTRFU ---
RD saw patient today during rounds, she was much more alert, talking to us. Reporting she was hungry but could not recall what she liked. did bring in a power drinks and she enjoyed that. RD tried to encourage her to drink the ensure instead, and provided some fresh cereal. Also took her lunch order, GENERAL SERVICE TECHNICIAN saw her yesterday. Patient does not have bottom teeth with her, therefore ordered MSOFT ground. Will continue supplements until po intake improves.
--- NOTE | 2022-01-25 13:35 | PC.NURSE ---
PT. IV infiltrated in left forearm during K+ infusion. Pharmacy consulted and orders for cold compress 4x daily. Ice pack compress applied.
[2022-01-25 18:15] LABS: Vancomycin,Trough 14.7 ug/mL (5.0-10.0)
[2022-01-25 19:22] LABS: Hemoglobin 13.7 g/dL (12.2-16.2)
--- NOTE | 2022-01-25 19:37 | PC.NURSE ---
1915:[facility] with results of Vanc through of 14.7- orders to give Vanc 1.25 gm as ordered.
[2022-01-26] VITALS: PULSE 90
[2022-01-26 03:34] VITALS: BP 121/58; PULSE 93; RESP 18; TEMP 36.7; O2SAT 97
[2022-01-26 04:00] VITALS: PULSE 80
[2022-01-26 04:50] VITALS: BMI 18.4
[2022-01-26 06:42] LABS: Basophils # 0.1 K/mm3 (0-0.2); Basophils % 0.7 % (0.1-2.0); Eosinophils # 0.1 K/mm3 (0.0-0.4); Eosinophils % 1.1 % (0.1-12.0); Hematocrit 40.6 % (37.0-47.0); Hemoglobin 13.1 g/dL (12.2-16.2); Lymphocytes # 1.5 K/mm3 (0.7-4.5); Lymphocytes % 16.1 % (10-50); Mean Corpuscular HGB Conc 32.2 g/dL (31.8-35.4); Mean Corpuscular Hemoglobin 27.8 pg (27.0-31.2); Mean Corpuscular Volume 86.3 fl (81-99); Mean Platelet Volume 8.9 fl (7.4-10.4); Monocytes # 0.6 K/mm3 (0.1-1.0); Monocytes % 6.1 % (1.7-9.3); Neutrophils # 7.2 K/mm3 (1.8-7.8); Neutrophils % 76.1 % (37.0-80.0); Platelet Count 455 K/mm3 (142-424); Red Cell Distribution Width 13.8 % (11.5-17.5); White Blood Count 9.4 K/mm3 (4.8-10.8)
[2022-01-26 07:19] LABS: Anion Gap 13.4 mEq/L (5-15); Blood Urea Nitrogen 11 mg/dl (7-17); Carbon Dioxide 24 mmol/L (22.0-30.0); Chloride 106 mmol/L (98-107); Creatinine Clearance Estimated 106 mL/min (50-200); Estimated Glomerular Filt Rate 128 ml/min (>60); GFR (African American) 154 ML/MIN (>60); Glucose 103 mg/dl (74-100); Potassium 3.4 mmoL/L (3.5-5.1); Sodium 140 mmol/L (136-145)
[2022-01-26 07:35] VITALS: BP 122/63; PULSE 95; RESP 18; TEMP 36.7; O2SAT 97
[2022-01-26 08:00] VITALS: PULSE 102; O2SAT 97
--- NOTE | 2022-01-26 10:16 | HMH.PHACONS ---
- Pharmacy Consult Date: 01/26/22 Time: 10:16 Referring provider: DR. SEGOVIA Reason for Consult:: VANCOMYCIN LEVEL Allergies and ADEs:: Allergies Allergy/AdvReac Type Severity Reaction Status Date / Time aspirin Allergy Verified 01/04/22 11:04 codeine Allergy Verified 01/04/22 11:04 Home Medications:: Home Medications Medication Instructions Recorded Confirmed Type clopidogrel 75 mg tablet 75 mg PO DAILY #90 tab 05/05/20 01/17/22 Rx erenumab-aooe 140 mg/mL 140 mg SQ MONTHLY 05/05/20 01/17/22 History subcutaneous auto-injector nitroglycerin 0.4 mg sublingual 0.4 mg SUBLINGUAL Q5MINP PRN tab 05/05/20 01/17/22 History tablet rosuvastatin 20 mg tablet See Rx Instructions .ROUTE 11/10/20 01/17/22 Rx .COMPLEX #90 tab fluticasone propionate 50 1 spray INTRANASAL QDAY 30 Days 07/28/21 01/17/22 Rx mcg/actuation nasal #9.9 g spray,suspension loratadine 10 mg tablet 10 mg PO DAILY #90 tab 07/28/21 01/17/22 Rx linaclotide 145 mcg capsule 145 mcg PO DAILY #30 cap 08/04/21 01/17/22 Rx montelukast 10 mg tablet 10 mg PO HS #90 tab 09/22/21 01/17/22 Rx fluticasone 250 mcg-salmeterol 50 See Rx Instructions .ROUTE 11/29/21 01/17/22 Rx mcg/dose blistr powdr for .COMPLEX #60 each inhalation sucralfate 100 mg/mL oral See Rx Instructions .ROUTE 11/29/21 01/17/22 Rx suspension .COMPLEX #900 ml ubrogepant 50 mg tablet 50 mg PO NEEDED PRN 12/06/21 01/17/22 History escitalopram oxalate 20 mg tablet See Rx Instructions .ROUTE 12/07/21 01/17/22 Rx .COMPLEX #90 tab albuterol sulfate 90 mcg/actuation 2 puff INHALATION Q6H #8.5 g 12/20/21 01/17/22 Rx aerosol inhaler diclofenac sodium 1 % topical gel See Rx Instructions .ROUTE 12/20/21 01/17/22 Rx .COMPLEX #100 g Venlafaxine HCl [Venlafaxine HCl 37.5 mg PO DAILY 01/17/22 01/17/22 History ER] Height: 1.7 m Weight: 53.269 kg Laboratory Results:: Laboratory Results - last 24 hr 01/25/22 05:53: Hgb 13.7 D 01/25/22 16:30: Vancomycin Trough 14.7 H 01/26/22 05:51: WBC 9.4, RBC 4.70, Hgb 13.1, Hct 40.6, MCV 86.3, MCH 27.8, MCHC 32.2, RDW 13.8, Plt Count 455 H D, MPV 8.9, Neut % (Auto) 76.1, Lymph % (Auto) 16.1, [place] % (Auto) 6.1, Eos % (Auto) 1.1, Baso % (Auto) 0.7, Neut # (Auto) 7.2, Lymph # (Auto) 1.5, [place] # (Auto) 0.6, Eos # (Auto) 0.1, Baso # (Auto) 0.1 01/26/22 05:51: Sodium 140, Potassium 3.4 L D, Chloride 106, Carbon Dioxide 24, Anion Gap 13.4, BUN 11 D, Creatinine 0.50 L D, Estimated Creat Clear 106, Estimated GFR 128, Est GFR ( Amer) 154 D, Glucose 103 H, Calcium 9.0 Medical History: Reports:: Arrhythmia, Congenital Heart Disease, Coronary Artery Disease, Cerebrovascular Accident, Gastroesophageal Reflux Disease(GERD), Heart Murmur, Internal Pacemaker, Migraine Denies:: Diabetes Mellitus Type 1, Diabetes Mellitus Type 2 Assessment and Plan (1) Altered mental status Status: Acute Qualifiers: Altered mental status type: delirium Qualified Code(s): R41.0 - Disorientation, unspecified Category: Medical Code(s): R41.82 - Altered mental status, unspecified (2) KHUSHBOO (acute kidney injury) Status: Acute Category: Medical Code(s): N17.9 - Acute kidney failure, unspecified (3) Abnormal drug screen Status: Acute Category: Medical Code(s): R89.2 - Abnormal level of other drugs, medicaments and biological substances in specimens from other organs, systems and tissues (4) Elevated liver enzymes Status: Acute Category: Medical Code(s): R74.8 - Abnormal levels of other serum enzymes (5) Elevated troponin Status: Acute Category: Medical Code(s): R77.8 - Other specified abnormalities of plasma proteins (6) Pacemaker Status: Acute Category: Medical Code(s): Z95.0 - Presence of cardiac pacemaker (7) Rhabdomyolysis Status: Acute Qualifiers: Rhabdomyolysis type: non-traumatic Qualified Code(s): M62.82 - Rhabdomyolysis Category: Medical Code(s): M62.82 - Rhabdomyolysis (8) Acute
[2022-01-26 10:49] VITALS: BP 139/77; PULSE 99; RESP 18; TEMP 36.4; O2SAT 99
--- NOTE | 2022-01-26 11:20 | HMH.DCSUM ---
General - General Admission date:: 01/17/22 Discharge date: 01/26/22 HPI HPI: this patient presented to the ed -with altered mental status -per ems, patient was found this evening by her and was not responding to him with altered level of consciousness. Patients stated that she was normal last night when he saw her last.. Patient has swelling to her right ear, with redness and swelling noted to right cheek bone. possible drug use and hx of prev strokes - had battery changed in [place] for pacemaker on - pt was found in the ed with [facility] [employer] with drug use and had prob sepsis and swollen rt ear and pt was admitted with ivf and abx at this time Hospital Course Hospital Course: this patient presented to the ed -with altered mental status -per ems, patient was found this evening by her and was not responding to him with altered level of consciousness. Patients stated that she was normal last night when he saw her last.. Patient has swelling to her right ear, with redness and swelling noted to right cheek bone. possible drug use and hx of prev strokes - had battery changed in [place] for pacemaker on - pt was found in the ed with [facility] [employer] with drug use and had prob sepsis and swollen rt ear and pt was admitted with ivf and abx at this time Initially urine drug screen 01/21/2022 revealed multiple drugs ingested including opiates, amphetamines, cocaine, and marijuana. Follow-up drug screen on 01/21/2022 only revealed marijuana Due to her being found down for an unknown length of time and unresponsive multiple x-rays and CTs were performed including: Head CT, hand x-ray, cervical spine CT, face CT, pelvis x-ray, abdomen/pelvis CT, lumbar and thoracic spine CTs all were negative and revealed nothing acute 01/17/22 CXR: FINDINGS: Tubes, catheters and devices: Dual lead pacemaker in the left hemithorax. Lungs: Mild bibasilar atelectasis. No acute appearing consolidation. Pleural spaces: No pleural effusion or pneumothorax. Heart/Mediastinum: No acute findings or cardiomegaly. Vasculature: Metallic stent along the right side of the spine, presumably in the SVC. Bones/joints: No acute findings. IMPRESSION: 1. No acute cardiopulmonary findings. 2. Other chronic and postsurgical changes as described. Electronically signed by Dung Friedman MD 01/21/[address]: FINDINGS: Brain: No abnormal regions of intracranial or extra-axial hemorrhage. Previously demonstrated regions of bilateral chronic basal ganglia infarctions are again demonstrated. These are better demonstrated on the current study secondary to contrast enhanced imaging. The distribution does not appear significantly changed. There are no regions of enhancement or mass effect. Accounting for differences in positioning and technique, the findings appear stable. Cerebral ventricles: The ventricles are normal in size and midline in position. Paranasal sinuses: Minimal regions of mucosal thickening again demonstrated within the paranasal sinuses. Mastoid air cells: Visualized mastoid air cells are well aerated. Bones/joints: Unremarkable. No acute fracture. Soft tissues: See Brain finding. Other findings: There is less motion artifact on the current study. IMPRESSION: 1. No evidence of an acute infarction. 2. Chronic bilateral foci of nonhemorrhagic infarctions involving the basal ganglia bilaterally. Findings most pronounced on the left. Accounting for differences in technique findings not significantly changed. Electronically signed by Leah De La Fuente MD 01/17 - 01/19 Patient continues to be difficult to arouse. Telemetry shows sinus rhythm with no significant arrhythmias. 01/20/22 she is lying in bed, awakens to verbal stimuli. Current oxygenation 98% on room air. She is more alert today and moving all extremities. Glucose this morning was 48 she received
--- NOTE | 2022-01-26 11:40 | PC.NURSE ---
Called patient's to inform him of discharge order. did not answer. Will try again.
== END 2022-01-26 12:14 | disposition home or self-care (01) | DRG 690 ==
LOC: ER 01-17 05:44 → ICU 01-17 10:15 → 2ND 01-18 15:16
PROVIDERS: Family Medicine; Internal Medicine Adolescent Medicine; Nurse Practitioner Family; Admitting Provider Emergency Medicine; Emergency Provider Emergency Medicine; PCP Emergency Medicine; Visit Provider Emergency Medicine
DX: N39.0 Urinary tract infection, site not specified (principal); M62.82 Rhabdomyolysis; N17.9 Acute kidney failure, unspecified; F19.921 Other psychoactive substance use, unspecified with intoxication with delirium; H60.11 Cellulitis of right external ear; Z95.0 Presence of cardiac pacemaker; N18.30 Chronic kidney disease, stage 3 unspecified; K21.9 Gastro-esophageal reflux disease without esophagitis; Z86.73 Personal history of transient ischemic attack (TIA), and cerebral infarction without residual deficits; I25.2 Old myocardial infarction; Z95.5 Presence of coronary angioplasty implant and graft; M06.9 Rheumatoid arthritis, unspecified; B19.20 Unspecified viral hepatitis C without hepatic coma; Z87.891 Personal history of nicotine dependence; Z95.9 Presence of cardiac and vascular implant and graft, unspecified; I25.10 Atherosclerotic heart disease of native coronary artery without angina pectoris; B96.20 Unspecified Escherichia coli [E. coli] as the cause of diseases classified elsewhere; M19.90 Unspecified osteoarthritis, unspecified site
CPT/HCPCS: 36415; 51702; 70450; 70470; 70486; 71045; 72126; 72129; 72132; 72170; 74177; 80048; 80053; 80202; 80305; 80329; 81001; 82140; 82550; 82553; 82947; 82962; 83605; 83735; 84145; 84484; 85007; 85014; 85018; 85025; 85048; 85049; 85651; 86140; 87040; 87070; 87077; 87086; 87088; 87186; 87205; 92610; 93005; 93306; 95816; 96365; 96367; 97110; 97116; 97162; 97166; 97530; 99285; C9803; J0696; Q9967; U0003; U0005

== ENCOUNTER → 2022-03-14 12:19 | Outpatient (CLI) | payer MEDICAID, SELFPAY | PROVIDERS: Visit Provider Emergency Medicine | DX: G62.9 Polyneuropathy, unspecified (principal) ==

== ENCOUNTER → 2022-11-21 10:20 | Outpatient (CLI) | payer MEDICAID, SELFPAY ==
[2022-11-21 16:15] LABS: Amphetamine/Metha Screen,Urine Negative ng/ml (<1000)
[2022-11-21 16:17] LABS: Benzodiazepines Screen,Urine Negative ng/ml (<200)
[2022-11-21 16:18] LABS: Cannabinoid Screen,Urine Negative ng/ml (<50)
[2022-11-21 16:19] LABS: Cocaine Screen,Urine Negative ng/ml (<300); Methadone Screen,Urine Negative ng/ml (<300)
[2022-11-21 16:20] LABS: Opiate Screen,Urine Negative ng/ml (<300); Phencyclidine Screen,Urine Negative ng/ml (<25)
[2022-11-21 16:45] LABS: Barbiturates Screen,Urine Negative ng/ml (<200)
== END ==
PROVIDERS: PCP Emergency Medicine; Visit Provider Emergency Medicine
DX: Z79.899 Other long term (current) drug therapy (principal)
CPT/HCPCS: 80305

== ENCOUNTER → 2022-12-23 14:21 | Outpatient (CLI) | payer MEDICAID, SELFPAY ==
[2022-12-23 15:17] LABS: Barbiturates Screen,Urine Negative ng/ml (<200); Benzodiazepines Screen,Urine Negative ng/ml (<200); Cannabinoid Screen,Urine Negative ng/ml (<50); Cocaine Screen,Urine Negative ng/ml (<300); Methadone Screen,Urine Negative ng/ml (<300); Opiate Screen,Urine Positive ng/ml (<300); Phencyclidine Screen,Urine Negative ng/ml (<25)
[2022-12-23 16:12] LABS: Amphetamine/Metha Screen,Urine Positive ng/ml (<1000)
== END ==
PROVIDERS: PCP Emergency Medicine; Visit Provider Emergency Medicine
DX: Z79.899 Other long term (current) drug therapy (principal)
CPT/HCPCS: 80305

== ENCOUNTER → 2023-07-03 23:12 | Outpatient (CLI) | payer MEDICAID, SELFPAY ==
[2023-07-03 21:32] LABS: Amphetamine/Metha Screen,Urine Negative ng/ml (<1000)
[2023-07-03 21:33] LABS: Barbiturates Screen,Urine Negative ng/ml (<200)
[2023-07-03 21:34] LABS: Benzodiazepines Screen,Urine Negative ng/ml (<200); Cannabinoid Screen,Urine Negative ng/ml (<50)
[2023-07-03 21:36] LABS: Cocaine Screen,Urine Negative ng/ml (<300); Methadone Screen,Urine Negative ng/ml (<300)
[2023-07-03 21:41] LABS: Opiate Screen,Urine Negative ng/ml (<300); Phencyclidine Screen,Urine Negative ng/ml (<25)
== END ==
PROVIDERS: PCP Emergency Medicine; Visit Provider Emergency Medicine
DX: F41.9 Anxiety disorder, unspecified (principal)
CPT/HCPCS: 80305

== ENCOUNTER → 2023-07-12 15:45 | Outpatient (CLI) | payer MEDICAID, SELFPAY ==
--- NOTE | 2023-07-12 15:45 | MM_ITS ---
PROCEDURE INFORMATION: Exam: MG Bilateral Screening 3D Mammography Exam date and time: 07/12/2023 3:37 PM Age: 57 years old Clinical indication: Screening examination TECHNIQUE: Imaging protocol: Bilateral Screening tomosynthesis and 2D mammography including computer-aided detection (CAD) when performed. COMPARISON: MG MM DIG SCREENING MAMM BI W/CAD 05/13/2020 1:13 PM FINDINGS: MAMMOGRAPHY: Breast composition: There are scattered areas of fibroglandular density. Mass: None. Architectural distortion: None. Calcifications: No suspicious calcifications. Asymmetric density: None. Skin thickening: None. Axillary adenopathy: None. IMPRESSION: No mammographic evidence of malignancy. Annual screening is recommended unless otherwise clinically indicated. ASSESSMENT: BI-RADS Category 1: Negative
== END ==
PROVIDERS: PCP Emergency Medicine; Visit Provider Emergency Medicine
DX: Z12.31 Encounter for screening mammogram for malignant neoplasm of breast (principal)
CPT/HCPCS: 77063; 77067

== ENCOUNTER → 2023-08-03 07:43 | Outpatient (CLI) | payer MEDICAID, SELFPAY ==
[2023-08-02 19:27] LABS: Basophils % 0.5 % (0.1-2.0); Eosinophils # 0.1 K/mm3 (0.0-0.4); Eosinophils % 1.4 % (0.1-12.0); Hematocrit 43.3 % (37.0-47.0); Lymphocytes # 2.3 K/mm3 (0.7-4.5); Lymphocytes % 27.6 % (10-50); Mean Corpuscular HGB Conc 32.3 g/dL (31.8-35.4); Mean Corpuscular Volume 83.8 fl (81-99); Mean Platelet Volume 9.1 fl (7.4-10.4); Monocytes # 0.5 K/mm3 (0.1-1.0); Monocytes % 6.3 % (1.7-9.3); Neutrophils # 5.3 K/mm3 (1.8-7.8); Neutrophils % 64.2 % (37.0-80.0); Platelet Count 372 K/mm3 (142-424); Red Blood Count 5.17 M/mm3 (4.20-5.40); Red Cell Distribution Width 13.6 % (11.5-17.5); White Blood Count 8.2 K/mm3 (4.8-10.8)
[2023-08-02 19:31] LABS: Alanine Aminotransferase 26 U/L (12-78); Albumin Level 4.7 g/dl (3.5-5.0); Albumin/Globulin Ratio 1.5 (1.1-1.8); Alkaline Phosphatase 109 U/L (38-126); Anion Gap 20.1 mEq/L (5-15); Aspartate Amino Transferase 38 U/L (14-36); Bilirubin,Total 0.4 mg/dl (0.2-1.3); Blood Urea Nitrogen 11 mg/dl (7-17); Calcium 9.1 mg/dl (8.4-10.2); Carbon Dioxide 19 mmol/L (22.0-30.0); Chloride 106 mmol/L (98-107); Chol/HDL Ratio 2.6 (1-3.5); Cholesterol 196 mg/dl (140-200); Estimated Glomerular Filt Rate 103 ml/min (>60); GFR (African American) 124 ML/MIN (>60); Globulin 3.1 g/dL (1.3-3.2); Glucose 94 mg/dl (74-100); HDL Cholesterol 76 mg/dl (40-60); Potassium 4.1 mmoL/L (3.5-5.1); Sodium 141 mmol/L (136-145); Total Protein,Serum 7.8 g/dl (6.3-8.2); Triglycerides 91 mg/dl (30-150); VLDL Cholesterol 18 mg/dL (0-40)
[2023-08-02 19:47] LABS: T4 (Thyroxine) 8.6 ug/dl (5.53-11.0)
[2023-08-02 19:48] LABS: Direct LDL Cholesterol 96.93 mg/dL (100-129)
[2023-08-02 19:54] LABS: 25-OH Vitamin D, Total 47.9 ng/mL (30-100)
[2023-08-02 20:01] LABS: Thyroid Stimulating Hormone 1.58 uIU/mL (0.465-4.68)
[2023-08-02 20:43] LABS: Amphetamine/Metha Screen,Urine Negative ng/ml (<1000)
[2023-08-02 20:44] LABS: Barbiturates Screen,Urine Negative ng/ml (<200)
[2023-08-02 20:45] LABS: Benzodiazepines Screen,Urine Negative ng/ml (<200); Cannabinoid Screen,Urine Negative ng/ml (<50)
[2023-08-02 20:46] LABS: Cocaine Screen,Urine Negative ng/ml (<300); Methadone Screen,Urine Negative ng/ml (<300)
[2023-08-02 20:47] LABS: Opiate Screen,Urine Negative ng/ml (<300)
[2023-08-02 20:48] LABS: Phencyclidine Screen,Urine Negative ng/ml (<25)
== END ==
PROVIDERS: PCP Emergency Medicine; Visit Provider Emergency Medicine
DX: R74.8 Abnormal levels of other serum enzymes (principal)
CPT/HCPCS: 80053; 80061; 80305; 82306; 84436; 84443; 85025

== ENCOUNTER 2023-08-28 12:28 | Emergency (ER) | payer MEDICAID, SELFPAY ==
[2023-08-28 12:29] VITALS: BP 128/75; PULSE 70; RESP 18; TEMP 36.9; O2SAT 94; BMI 24.0
[2023-08-28 12:45] VITALS: PULSE 76; O2SAT 96
--- NOTE | 2023-08-28 13:07 | HMH.EDGENADL ---
Discharge Plan Disposition Patient Disposition: Home, Self-Care Prescriptions Prescriptions: New prednisone 50 mg tablet 50 mg PO DAILY 5 Days Qty: 5 0RF Rx Instructions: Please begin 1 day after ED visit cyclobenzaprine 5 mg tablet 5 mg PO TID PRN (Reason: muscle spasm) 5 Days Qty: 15 0RF No Action (DME) Aerochamber Plus Flow-Vu Spacer See Rx Instructions .ROUTE .MEDSUPPLY Qty: 1 Rx Instructions: As directed melatonin 5 mg tablet 5 mg PO HS ibuprofen 800 mg tablet 800 mg PO ONCE guaifenesin [Mucus Relief ER] 600 mg tablet extended release 12hr PO levocetirizine 5 mg tablet 5 mg PO HS Qty: 30 1RF gabapentin 800 mg tablet 800 mg PO TID Qty: 90 1RF trazodone 100 mg tablet 100 mg PO DAILY Qty: 30 0RF hydrocodone-acetaminophen 10-325 mg tablet 1 tab PO TID Qty: 90 0RF diclofenac sodium 1 % gel See Rx Instructions .ROUTE .COMPLEX Qty: 100 0RF Dose Instruction: APPLY 2 GRAMS TO AFFECTED AREA 4 TIMES A DAY Rx Instructions: APPLY 2 GRAMS TO AFFECTED AREA 4 TIMES A DAY fluticasone propionate 50 mcg/actuation spray,suspension See Rx Instructions .ROUTE .COMPLEX Qty: 16 1RF Dose Instruction: 1 SPRAY INTO EACH NOSTRIL EVERY DAY Rx Instructions: 1 SPRAY INTO EACH NOSTRIL EVERY DAY nitroglycerin 0.4 mg tablet, sublingual See Rx Instructions .ROUTE .COMPLEX Qty: 25 10RF Dose Instruction: PLACE 1 TABLET UNDER THE TONGUE EVERY 5 (FIVE) MINUTES NEEDED FOR CHEST PAIN. Rx Instructions: PLACE 1 TABLET UNDER THE TONGUE EVERY 5 (FIVE) MINUTES NEEDED FOR CHEST PAIN. fluticasone propion-salmeterol [Advair Diskus] 250-50 mcg/dose blister with device See Rx Instructions .ROUTE .COMPLEX Qty: 60 12RF Dose Instruction: 1 INHALATION TWICE A DAY (RINSE MOUTH AFTER USE) Rx Instructions: 1 INHALATION TWICE A DAY (RINSE MOUTH AFTER USE) clopidogrel 75 mg tablet See Rx Instructions .ROUTE .COMPLEX Qty: 90 2RF Dose Instruction: TAKE 1 TABLET BY MOUTH DAILY. Rx Instructions: TAKE 1 TABLET BY MOUTH DAILY. loratadine 10 mg tablet See Rx Instructions .ROUTE .COMPLEX Qty: 90 2RF Dose Instruction: TAKE ONE TABLET BY MOUTH EVERY DAY Rx Instructions: TAKE ONE TABLET BY MOUTH EVERY DAY albuterol sulfate [Proventil HFA] 90 mcg/actuation HFA aerosol inhaler 2 puff INHALATION Q6H Qty: 8.5 2RF Rx Instructions: administer with spacer montelukast [Singulair] 10 mg tablet 10 mg PO HS Qty: 90 3RF rosuvastatin 20 mg tablet See Rx Instructions .ROUTE .COMPLEX Qty: 90 2RF Dose Instruction: TAKE 1 TABLET BY MOUTH ONCE DAILY Rx Instructions: TAKE 1 TABLET BY MOUTH ONCE DAILY Aimovig Autoinjector 140 mg/mL auto-injector 140 mg SQ QMONTH Qty: 1 5RF Hold Instructions: Doctor's Order escitalopram oxalate 20 mg tablet See Rx Instructions .ROUTE .COMPLEX Qty: 90 0RF Dose Instruction: TAKE 1 TABLET BY MOUTH ONCE DAILY Rx Instructions: TAKE 1 TABLET BY MOUTH ONCE DAILY Activity Restrictions/Add. Instructions Additional Instructions/Restrictions: Please follow-up with your primary care doctor to discuss your chronic pain management. You may also follow-up with a spine surgeon to get an outpatient MRI given that your symptoms have been going on for years. Clinical Impressions Clinical Impression: Sciatica Instructions Patient Instructions: DI for Acute Abdominal Pain Discharge ED Provider: Duong Costello General Adult HPI General Chief complaint: Abdominal Pain Stated complaint: back pain Time Seen by Provider: 08/28/23 12:42 Mode of Arrival: EMS Source of Information: Patient, EMS and Medical Record Limitations: No Limitations Description of Symptoms (Recalled from ER Triage Doc. by RN): c/o left lower back pain that goes down her left leg and goes numb. PT states that she has chronic back pain due to a wre
[2023-08-28 13:17] VITALS: BP 130/61; PULSE 63; RESP 15; TEMP 36.9; O2SAT 94
== END 2023-08-28 13:20 | disposition home or self-care (01) ==
PROVIDERS: Emergency Provider Student in an Organized Health Care Education/Training Program; PCP Emergency Medicine
DX: M54.32 Sciatica, left side (principal); F17.210 Nicotine dependence, cigarettes, uncomplicated; J45.909 Unspecified asthma, uncomplicated; K21.9 Gastro-esophageal reflux disease without esophagitis
CPT/HCPCS: 99283

== ENCOUNTER → 2023-09-06 06:29 | Outpatient (CLI) | payer MEDICAID, SELFPAY ==
[2023-09-06 18:28] LABS: Amphetamine/Metha Screen,Urine Negative ng/ml (<1000)
[2023-09-06 18:29] LABS: Barbiturates Screen,Urine Negative ng/ml (<200)
[2023-09-06 18:30] LABS: Benzodiazepines Screen,Urine Negative ng/ml (<200); Cannabinoid Screen,Urine Negative ng/ml (<50)
[2023-09-06 18:31] LABS: Cocaine Screen,Urine Negative ng/ml (<300); Methadone Screen,Urine Negative ng/ml (<300)
[2023-09-06 18:32] LABS: Opiate Screen,Urine Positive ng/ml (<300)
[2023-09-06 18:33] LABS: Phencyclidine Screen,Urine Negative ng/ml (<25)
== END ==
PROVIDERS: PCP Emergency Medicine; Visit Provider Emergency Medicine
DX: Z79.899 Other long term (current) drug therapy (principal)
CPT/HCPCS: 80305

== ENCOUNTER → 2023-09-29 12:00 | Outpatient (CLI) | payer MEDICAID, SELFPAY ==
[2023-09-29 19:00] LABS: Amphetamine/Metha Screen,Urine Negative ng/ml (<1000); Barbiturates Screen,Urine Negative ng/ml (<200)
[2023-09-29 19:01] LABS: Cannabinoid Screen,Urine Negative ng/ml (<50)
[2023-09-29 19:02] LABS: Cocaine Screen,Urine Negative ng/ml (<300)
[2023-09-29 19:03] LABS: Methadone Screen,Urine Negative ng/ml (<300); Opiate Screen,Urine Negative ng/ml (<300)
[2023-09-29 19:07] LABS: Phencyclidine Screen,Urine Negative ng/ml (<25)
[2023-09-29 20:55] LABS: Benzodiazepines Screen,Urine Negative ng/ml (<200)
== END ==
PROVIDERS: PCP Emergency Medicine; Visit Provider Emergency Medicine
DX: Z79.899 Other long term (current) drug therapy (principal)
CPT/HCPCS: 80305

== ENCOUNTER 2023-11-01 12:02 | Emergency (ER) | payer MEDICAID, SELFPAY ==
--- OUTSIDE RECORDS SUMMARY | 2023-11-01 12:07 | XMS_ITS | Patient Health Record ---
Author Name Unknown Organization [facility], [facility] Address [address] [place] [address] Care Team Providers Care Electromedical Service Engineer Name Role Phone Maritza Reeves Primary Care Provider [phone] Ma Unavailable [phone] ALLERGIES Allergen (clinical drug ingredient) Drug/Non Drug Allergy documented on EMR Reaction Allergy Type Onset Date Status aspirin Aspirin Unknown Drug Allergy Active REASON FOR REFERRAL No Information MEDICATIONS Medication SIG (Take, Route, Frequency, Duration) Notes Start Date End Date Status Advair Diskus 250-50 MCG/ACT 1 puff Inhalation Twice a day Unknown Escitalopram Oxalate 20 MG 1 tablet Orally Once a day U nknown Aimovig 140 MG/ML as directed Subcutaneous Unknown Vivitrol 380 MG 4 ml Intramuscular e very 4 weeks for 28 days Unknown ProAir HFA 108 (90 Base) MCG/ACT 1 puff as needed Inhalation every 4 hrs Unknown Loratadine 10 MG 1 tablet Orally Once a day Unknown Clopidogrel Bisulfate 75 MG 1 tablet Orally Once a day U nknown Rosuvastatin Calcium 20 MG 1 tablet Orally Once a day U nknown Flunisolide 25 MCG/ACT (0.025%) 2 sprays in each nostril Nasally Twice a day Unknown Montelukast Sodium 10 MG 1 tablet Orally Once a day
--- NOTE | 2023-11-01 12:23 | EXP.UTC ---
Discharge Plan Disposition Patient Disposition: Home, Self-Care Condition: Good Prescriptions Prescriptions: New sulfamethoxazole-trimethoprim [Bactrim DS] 800-160 mg Tablet 1 tab PO BID Qty: 20 0RF cephalexin 500 mg capsule 500 mg PO QID Qty: 40 0RF mupirocin 2 % ointment 1 applic topical TID 7 Days Qty: 15 0RF No Action (DME) Aerochamber Plus Flow-Vu Spacer See Rx Instructions .ROUTE .MEDSUPPLY Qty: 1 Rx Instructions: As directed melatonin 5 mg tablet 5 mg PO HS Aimovig Autoinjector 140 mg/mL auto-injector 140 mg SQ QMONTH Qty: 1 5RF Hold Instructions: Doctor's Order albuterol sulfate [Proventil HFA] 90 mcg/actuation HFA aerosol inhaler 2 puff INHALATION Q6H Qty: 8.5 2RF Rx Instructions: administer with spacer clopidogrel 75 mg tablet See Rx Instructions .ROUTE .COMPLEX Qty: 90 2RF Dose Instruction: TAKE 1 TABLET BY MOUTH DAILY. Rx Instructions: TAKE 1 TABLET BY MOUTH DAILY. diclofenac sodium 1 % gel See Rx Instructions .ROUTE .COMPLEX Qty: 100 0RF Dose Instruction: APPLY 2 GRAMS TO AFFECTED AREA 4 TIMES A DAY Rx Instructions: APPLY 2 GRAMS TO AFFECTED AREA 4 TIMES A DAY escitalopram oxalate 20 mg tablet See Rx Instructions .ROUTE .COMPLEX Qty: 90 0RF Dose Instruction: TAKE 1 TABLET BY MOUTH ONCE DAILY Rx Instructions: TAKE 1 TABLET BY MOUTH ONCE DAILY fluticasone propion-salmeterol [Advair Diskus] 250-50 mcg/dose blister with device See Rx Instructions .ROUTE .COMPLEX Qty: 60 12RF Dose Instruction: 1 INHALATION TWICE A DAY (RINSE MOUTH AFTER USE) Rx Instructions: 1 INHALATION TWICE A DAY (RINSE MOUTH AFTER USE) fluticasone propionate 50 mcg/actuation spray,suspension See Rx Instructions .ROUTE .COMPLEX Qty: 16 1RF Dose Instruction: 1 SPRAY INTO EACH NOSTRIL EVERY DAY Rx Instructions: 1 SPRAY INTO EACH NOSTRIL EVERY DAY ibuprofen 800 mg tablet 800 mg PO ONCE 60 Days Qty: 60 0RF levocetirizine 5 mg tablet 5 mg PO HS Qty: 30 1RF loratadine 10 mg tablet See Rx Instructions .ROUTE .COMPLEX Qty: 90 2RF Dose Instruction: TAKE ONE TABLET BY MOUTH EVERY DAY Rx Instructions: TAKE ONE TABLET BY MOUTH EVERY DAY montelukast [Singulair] 10 mg tablet 10 mg PO HS Qty: 90 3RF nitroglycerin 0.4 mg tablet, sublingual See Rx Instructions .ROUTE .COMPLEX Qty: 25 10RF Dose Instruction: PLACE 1 TABLET UNDER THE TONGUE EVERY 5 (FIVE) MINUTES NEEDED FOR CHEST PAIN. Rx Instructions: PLACE 1 TABLET UNDER THE TONGUE EVERY 5 (FIVE) MINUTES NEEDED FOR CHEST PAIN. rosuvastatin 20 mg tablet See Rx Instructions .ROUTE .COMPLEX Qty: 90 2RF Dose Instruction: TAKE 1 TABLET BY MOUTH ONCE DAILY Rx Instructions: TAKE 1 TABLET BY MOUTH ONCE DAILY gabapentin 800 mg tablet 800 mg PO TID Qty: 90 1RF trazodone 100 mg tablet See Rx Instructions .ROUTE .COMPLEX Qty: 30 0RF Dose Instruction: TAKE 1 TABLET BY MOUTH ONCE DAILY Rx Instructions: TAKE 1 TABLET BY MOUTH ONCE DAILY hydrocodone-acetaminophen 10-325 mg tablet 1 tab PO TID Qty: 90 0RF Referrals Follow up/Referrals: Quinton Calhoun DO [Primary Care Provider] - See instructions Activity Restrictions/Add. Instructions Additional Instructions/Restrictions: Keep the affected area clean and dry. Follow up with your regular doctor within the next 48 hours for a wound recheck. Take the antibiotics as directed and apply the topical antibiotics as directed. Apply warm wet compresses to the affected areas three or four times per day. GO TO THE ER FOR ANY WORSENING SYMPTOMS Clinical Impressions Clinical Impression: Abscess of left hand, Cellulitis of right hand Instructions Patient Instructions: Cellulitis, Cephalexin, Mupirocin, DI for Skin Abscess Discharge ED Provider: Favio Luis [facility] HPI General Stated comp
[2023-11-01 12:25] VITALS: BP 148/62; PULSE 75; RESP 18; TEMP 36.7; O2SAT 98; BMI 25.0
[2023-11-01 13:10] VITALS: BP 148/62; PULSE 75; RESP 18; TEMP 37; O2SAT 98
== END 2023-11-01 13:10 | disposition home or self-care (01) ==
PROVIDERS: Emergency Provider Nurse Practitioner Family; PCP Internal Medicine
DX: L02.512 Cutaneous abscess of left hand (principal); L03.113 Cellulitis of right upper limb; F17.210 Nicotine dependence, cigarettes, uncomplicated; J45.909 Unspecified asthma, uncomplicated; K21.9 Gastro-esophageal reflux disease without esophagitis
CPT/HCPCS: 87070; 87205; 99212; 99214; G0463

== ENCOUNTER 2023-11-03 19:47 | Observation (INO) | payer MEDICAID, SELFPAY ==
[2023-11-03 19:54] VITALS: BP 164/88; PULSE 93; RESP 18; TEMP 36.7; O2SAT 97; BMI 25.7
--- OUTSIDE RECORDS SUMMARY | 2023-11-03 19:58 | XMS_ITS | Patient Health Record ---
Author Name Unknown Organization [facility], [facility] Address [address] [place] [address] Care Team Providers Care Ve Teacher Name Role Phone Maritza Reeves Primary Care Provider [phone] Rossi Ma Unavailable [phone] ALLERGIES Allergen (clinical drug ingredient) Drug/Non Drug [...]
--- NOTE | 2023-11-03 20:03 | HMH.EDGENADL ---
Discharge Plan Disposition Patient Disposition: Admitted Clinical Impressions Clinical Impression: Acute kidney failure, Acute hypokalemia, Acute hyponatremia, Hypomagnesemia, Hypocalcemia Discharge ED Provider: Barry Hickman General Adult HPI General Chief complaint: Recheck/Abnormal Lab/Rx Stated complaint: possible allergic reaction to medicine Time Seen by Provider: 11/03/23 19:50 Mode of Arrival: Family Vehicle Source of Information: Patient Limitations: No Limitations Description of Symptoms (Recalled from ER Triage Doc. by RN): 58 yo female presents with CC of I think I'm having an allergic reaction, I feel like I have thrush, I feel like I'm burning from the inside out, I feel like I'm on fire, and I can't sit still History of Present Illness HPI narrative: Patient is a 58-year-old female past medical history of polysubstance abuse reportedly 10 months sober who presents emergency department for evaluation of feeling as if she has burning from the inside. Patient was diagnosed with sores on her hand and started on Keflex, after the symptoms approximately 48 hours past she felt a diffuse burning and subjective mouth pain. She bumps into things frequently and has bruises. No other acute complaints at this time. Related Data Home Medications Medication Instructions Recorded Confirmed inhalational spacing device #1 ea 08/02/23 09/29/23 (Aerochamber Plus Flow-Vu) Previous Rx's Medication Instructions Recorded Aimovig Autoinjector 140 mg/mL 140 mg SQ QMONTH #1 mL 09/29/23 subcutaneous auto-injector (erenumab-aooe) albuterol sulfate 90 mcg/actuation 2 puff inhalation Q6H #8.5 grams 09/29/23 aerosol inhaler (Proventil HFA) clopidogrel 75 mg tablet See Rx Instructions .Route 09/29/23 .COMPLEX #90 tabs diclofenac sodium 1 % topical gel See Rx Instructions .Route 09/29/23 .COMPLEX #100 grams escitalopram oxalate 20 mg tablet See Rx Instructions .Route 09/29/23 .COMPLEX #90 tabs fluticasone propionate 50 See Rx Instructions .Route 09/29/23 mcg/actuation nasal .COMPLEX #16 caps spray,suspension gabapentin 800 mg tablet 800 mg PO TID #90 tabs 09/29/23 levocetirizine 5 mg tablet 5 mg PO HS #30 tabs 09/29/23 loratadine 10 mg tablet See Rx Instructions .Route 09/29/23 .COMPLEX #90 tabs nitroglycerin 0.4 mg sublingual See Rx Instructions .Route 09/29/23 tablet .COMPLEX #25 ea rosuvastatin 20 mg tablet See Rx Instructions .Route 09/29/23 .COMPLEX #90 tabs trazodone 100 mg tablet See Rx Instructions .Route 10/12/23 .COMPLEX #30 tabs hydrocodone 10 mg-acetaminophen 1 tab PO TID #90 tabs 10/30/23 325 mg tablet Allergies Allergy/AdvReac Type Severity Reaction Status Date / Time aspirin Allergy Hives Verified 11/03/23 23:04 coconut Allergy Swelling Verified 11/03/23 23:04 of Lip/Tongue/Throat codeine Allergy Verified 11/01/23 12:43 egg Allergy Hives Verified 11/03/23 23:04 Fish Containing Products Allergy Swelling Verified 11/03/23 23:04 of Lip/Tongue/Throat PFSH PFSH Disclaimer: The information contained in this section may have been updated after the patient was seen, as this information can be updated by other users. Medical History Allergic rhinitis Asthma Constipation Gastroesophageal reflux disease Neuropathy Social History Smoking Status: Former smoker tobacco type: cigarettes second hand exposure: No alcohol intake: never substance use type: former substance user current occupational status: disabled Travel in the last 8 weeks: None household members: spouse ROS Obtained: Yes Systems reviewed as appropriate & no additional complaints except as documented Physical Exam General General appearance: alert, anxious and other (Jittery at bedside) Head Head exam: atraumatic and normocephalic Eye Eye exam: Present PERRL an
[2023-11-03 20:18] VITALS: BP 163/83; PULSE 82; RESP 18; O2SAT 97
--- NOTE | 2023-11-03 20:28 | ECG_ITS ---
APPROVED REPORT Exam: Resting ECG HR:87 bpm ECG Measurements Heart Rate 87 AXES ID 192 P 66 QRSd 91 QRS -3 QT 315 T 40 QTc 359 Conclusion SINUS RHYTHM POSSIBLE LEFT ATRIAL ENLARGEMENT [-0.1mV P-WAVE IN V1/V2] POSSIBLE LEFT VENTRICULAR HYPERTROPHY [VOLTAGE CRITERIA PLUS LAE OR QRS WIDENING] NONSPECIFIC ST & T-WAVE ABNORMALITY ABNORMAL ECG UNCONFIRMED REPORT Electronically signed by : Dayton Negrete MD 11/08/2023 09:11:16
[2023-11-03 20:29] LABS: Basophils # 0.1 K/mm3 (0-0.2); Basophils % 0.8 % (0.1-2.0); Eosinophils # 0.1 K/mm3 (0.0-0.4); Eosinophils % 1.2 % (0.1-12.0); Hematocrit 33.4 % (37.0-47.0); Hemoglobin 11.8 g/dL (12.2-16.2); Lymphocytes # 2.3 K/mm3 (0.7-4.5); Lymphocytes % 25.7 % (10-50); Mean Corpuscular HGB Conc 35.4 g/dL (31.8-35.4); Mean Corpuscular Hemoglobin 28.6 pg (27.0-31.2); Mean Corpuscular Volume 80.8 fl (81-99); Mean Platelet Volume 8.6 fl (7.4-10.4); Monocytes # 0.5 K/mm3 (0.1-1.0); Monocytes % 5.3 % (1.7-9.3); Neutrophils % 67.1 % (37.0-80.0); Platelet Count 325 K/mm3 (142-424); Red Blood Count 4.14 M/mm3 (4.20-5.40); Red Cell Distribution Width 14.3 % (11.5-17.5)
[2023-11-03 20:38] LABS: Alanine Aminotransferase 77 U/L (12-78); Albumin Level 4.2 g/dl (3.5-5.0); Albumin/Globulin Ratio 1.4 (1.1-1.8); Alkaline Phosphatase 96 U/L (38-126); Anion Gap 15.3 mEq/L (5-15); Aspartate Amino Transferase 164 U/L (14-36); Bilirubin,Total 0.5 mg/dl (0.2-1.3); Blood Urea Nitrogen 16 mg/dl (7-17); Calcium 8.3 mg/dl (8.4-10.2); Carbon Dioxide 20 mmol/L (22.0-30.0); Chloride 94 mmol/L (98-107); Creatinine Clearance Estimated 39 mL/min (50-200); Estimated Glomerular Filt Rate 31 ml/min (>60); GFR (African American) 37 ML/MIN (>60); Globulin 2.9 g/dL (1.3-3.2); Glucose 131 mg/dl (74-100); Magnesium 1.2 mg/dl (1.6-2.3); Sodium 127 mmol/L (136-145); Total Protein,Serum 7.1 g/dl (6.3-8.2)
[2023-11-03 20:42] LABS: Potassium 2.3 mmoL/L (3.5-5.1)
[2023-11-03 21:00] LABS: Free T4 (Free Thyroxine) 1.68 ng/dl (0.78-2.19)
[2023-11-03 21:01] VITALS: BP 133/93; PULSE 95; RESP 17; O2SAT 97
[2023-11-03 21:25] LABS: Barbiturates Screen,Urine Negative ng/ml (<200)
[2023-11-03 21:26] LABS: Benzodiazepines Screen,Urine Negative ng/ml (<200); Cannabinoid Screen,Urine Positive ng/ml (<50)
[2023-11-03 21:27] LABS: Cocaine Screen,Urine Negative ng/ml (<300); Methadone Screen,Urine Negative ng/ml (<300)
[2023-11-03 21:28] LABS: Opiate Screen,Urine Positive ng/ml (<300)
[2023-11-03 21:29] LABS: Phencyclidine Screen,Urine Negative ng/ml (<25)
--- NOTE | 2023-11-03 21:46 | EXP.HP ---
History of Present Illness *Admission Date: 11/03/23 *Reason for visit:: burning from the inside *History of present illness: This is a 58-year-old female PMHxof polysubstance abuse, Hep C, Asthma, GERD who presented emergency department for evaluation of feeling as if she has burning from the inside . Patient profound somnolent at the time of this interview, therefore data collected from ER documentation. Apparently, patient was diagnosed with sores on her hand and started on Keflex, after the symptoms approximately 48 hours past she felt a diffuse burning and subjective mouth pain. however, records reviews does not show any recent Rx of abx. She bumps into things frequently and has bruises. No other acute complaints at this time. Admitted for work up and treatment. [facility] Disclaimer: The information contained in this section may have been updated after the patient was seen, as this information can be updated by other users. Medical History Allergic rhinitis Asthma Constipation Gastroesophageal reflux disease Neuropathy Social History Smoking Status: Former smoker tobacco type: cigarettes second hand exposure: No alcohol intake: never substance use type: former substance user current occupational status: disabled Travel in the last 8 weeks: None household members: spouse Review of Systems Review of Systems Review of systems:: unable to obtain Meds Home Medications and Allergies Home Medications Medication Instructions Recorded Confirmed Type inhalational spacing device #1 ea 08/02/23 11/03/23 History (Aerochamber Plus Flow-Vu) Aimovig Autoinjector 140 mg/mL 140 mg SQ QMONTH #1 mL 09/29/23 11/03/23 Rx subcutaneous auto-injector (erenumab-aooe) albuterol sulfate 90 mcg/actuation 2 puff inhalation Q6H #8.5 grams 09/29/23 11/03/23 Rx aerosol inhaler (Proventil HFA) clopidogrel 75 mg tablet See Rx Instructions .Route 09/29/23 11/03/23 Rx .COMPLEX #90 tabs diclofenac sodium 1 % topical gel See Rx Instructions .Route 09/29/23 11/03/23 Rx .COMPLEX #100 grams escitalopram oxalate 20 mg tablet See Rx Instructions .Route 09/29/23 11/03/23 Rx .COMPLEX #90 tabs fluticasone propionate 50 See Rx Instructions .Route 09/29/23 11/03/23 Rx mcg/actuation nasal .COMPLEX #16 caps spray,suspension gabapentin 800 mg tablet 800 mg PO TID #90 tabs 09/29/23 11/03/23 Rx levocetirizine 5 mg tablet 5 mg PO HS #30 tabs 09/29/23 11/03/23 Rx loratadine 10 mg tablet See Rx Instructions .Route 09/29/23 11/03/23 Rx .COMPLEX #90 tabs nitroglycerin 0.4 mg sublingual See Rx Instructions .Route 09/29/23 11/03/23 Rx tablet .COMPLEX #25 ea rosuvastatin 20 mg tablet See Rx Instructions .Route 09/29/23 11/03/23 Rx .COMPLEX #90 tabs trazodone 100 mg tablet See Rx Instructions .Route 10/12/23 11/03/23 Rx .COMPLEX #30 tabs hydrocodone 10 mg-acetaminophen 1 tab PO TID #90 tabs 10/30/23 11/03/23 Rx 325 mg tablet New Prescriptions to Start Prescriptions: Allergies Allergy/AdvReac Type Severity Reaction Status Date / Time aspirin Allergy Hives Verified 11/03/23 23:04 coconut Allergy Swelling Verified 11/03/23 23:04 of Lip/Tongue/Throat codeine Allergy Verified 11/01/23 12:43 egg Allergy Hives Verified 11/03/23 23:04 Fish Containing Products Allergy Swelling Verified 11/03/23 23:04 of Lip/Tongue/Throat milk AdvReac Verified 11/04/23 08:40 Exam Data for Last 24 hours Vital signs and Labs for Last 24 Hours: Temp Pulse Resp BP Pulse Ox O2 Del Method 98.0 F 95 H 17 133/93 H 97 Room Air 11/03/23 19:54 11/03/23 21:01 11/03/23 21:01 11/03/23 21:01 11/03/23 21:01 11/03/23 19:54 Laboratory Results - last 24 hr 11/03/23 20:18: WBC 9.0, RBC 4.14 L, Hgb 11.8 L, Hct 33.4 L, MCV 80.8 L, MCH 28.6, MCHC 35.4, RDW 14.3, Plt Count 325, MPV
--- NOTE | 2023-11-03 22:01 | PC.NURSE ---
OBSERVATION ADMISSION TO [facility] WITH dX OF HYPOKALEMIA AND KHUSHBOO,
--- NOTE | 2023-11-03 22:18 | PC.NURSE ---
report called to RAY Cedillo
--- NOTE | 2023-11-03 22:42 | PC.NURSE ---
Patient arrived to floor via stretcher from ED at 22:38.
[2023-11-03 22:45] VITALS: BP 110/80; BP 99/62; PULSE 91; PULSE 95; RESP 20; TEMP 36.7; TEMP 37.1; O2SAT 94; O2SAT 96; BMI 25.2
--- NOTE | 2023-11-04 00:30 | PC.NURSE ---
Contacted Frank, SINGER SONGWRITER for orders for tele monitoring given patients status of hypokalemia and potassium runs.
[2023-11-04 00:45] VITALS: PULSE 84
[2023-11-04 04:00] VITALS: BP 115/71; PULSE 78; PULSE 86; RESP 20; TEMP 36.3; O2SAT 94; BMI 25.2
--- NOTE | 2023-11-04 05:55 | PC.NURSE ---
Patient has been stable since admission. On arrival to [facility] patient was very anxious, restless and unable to get comfortable. Patient stated to RAY fontenot I done meth today. patient has been placed on tele- NSR. Potassium, magnesium, and calcium has been replaced per orders. Patient remains on NS + 40 MEQ KCL @ 125 ml/hr Patient has been resting well. Bed alarm on for fall risk and unsteady. Several small brusies noted throughout body from banging around . Call mccrary, bedside table, water pitcher and personal belongings within reach.
[2023-11-04 07:33] LABS: Chloride 106 mmol/L (98-107); Sodium 139 mmol/L (136-145)
[2023-11-04 07:34] LABS: Potassium 3.4 mmoL/L (3.5-5.1)
[2023-11-04 07:36] LABS: Alanine Aminotransferase 71 U/L (12-78); Albumin Level 3.5 g/dl (3.5-5.0); Albumin/Globulin Ratio 1.4 (1.1-1.8); Alkaline Phosphatase 91 U/L (38-126); Anion Gap 12.4 mEq/L (5-15); Aspartate Amino Transferase 144 U/L (14-36); Bilirubin,Total 0.3 mg/dl (0.2-1.3); Blood Urea Nitrogen 10 mg/dl (7-17); Calcium 8.2 mg/dl (8.4-10.2); Carbon Dioxide 24 mmol/L (22.0-30.0); Creatinine Clearance Estimated 72 mL/min (50-200); Estimated Glomerular Filt Rate 64 ml/min (>60); GFR (African American) 78 ML/MIN (>60); Globulin 2.5 g/dL (1.3-3.2); Glucose 131 mg/dl (74-100)
[2023-11-04 07:37] LABS: Magnesium 2.7 mg/dl (1.6-2.3)
[2023-11-04 07:39] LABS: Basophils % 0.7 % (0.1-2.0); Eosinophils # 0.2 K/mm3 (0.0-0.4); Eosinophils % 3.8 % (0.1-12.0); Hematocrit 33.2 % (37.0-47.0); Hemoglobin 11.5 g/dL (12.2-16.2); Lymphocytes # 1.5 K/mm3 (0.7-4.5); Lymphocytes % 29.3 % (10-50); Mean Corpuscular HGB Conc 34.6 g/dL (31.8-35.4); Mean Corpuscular Hemoglobin 28.9 pg (27.0-31.2); Mean Corpuscular Volume 83.6 fl (81-99); Mean Platelet Volume 8.2 fl (7.4-10.4); Monocytes # 0.4 K/mm3 (0.1-1.0); Monocytes % 6.6 % (1.7-9.3); Neutrophils # 3.2 K/mm3 (1.8-7.8); Neutrophils % 59.7 % (37.0-80.0); Platelet Count 294 K/mm3 (142-424); Red Blood Count 3.97 M/mm3 (4.20-5.40); Red Cell Distribution Width 14.4 % (11.5-17.5); White Blood Count 5.3 K/mm3 (4.8-10.8)
--- NOTE | 2023-11-04 07:50 | PC.NURSE ---
pt is fidgety and restless. states her body is covered in open areas and blisters. i was not able to visibly see any skin issues. rambling speech. poor historian but oriented
[2023-11-04 08:00] VITALS: BP 133/57; PULSE 75; PULSE 80; RESP 18; TEMP 36.6; O2SAT 96
--- NOTE | 2023-11-04 11:09 | EXP.DC.SUM ---
General Admission date:: 11/03/23 Discharge date: 11/04/23 HPI HPI HPI: This is a 58-year-old female PMHxof polysubstance abuse, Hep C, Asthma, GERD who presented emergency department for evaluation of feeling as if she has burning from the inside . Patient profound somnolent at the time of this interview, therefore data collected from ER documentation. Apparently, patient was diagnosed with sores on her hand and started on Keflex, after the symptoms approximately 48 hours past she felt a diffuse burning and subjective mouth pain. however, records reviews does not show any recent Rx of abx. She bumps into things frequently and has bruises. No other acute complaints at this time. Admitted for work up and treatment. Hospital Course Hospital Course Hospital Course: Patient was seen and evaluated at the bedside on the day of discharge. Patient is stable for discharge. Patient wishes to be discharged. All patient questions were answered and patient was given time to ask questions. Patient was discharged in stable condition. Patient understands that she can return to ER in case of any sudden changes in health. Total time spent on DC - 38 mins 58-year-old female past medical history of polysubstance abuse who presented emergency department for evaluation of feeling as if she has burning from the inside . On arrival at ER, initial labs work showed moderate electrolytes disturbances, including hyponatremia, hypokalemia, hypomagnesemia , elevated Cr. urine drug screen showed positive to marijuana and opiod. patient started on IV resuscitation and replenish IV electrolytes. Discussed with ER for admission . -KHUSHBOO: resolved Electrolytes disturbances: improved replacing K, Mg, Ca, Na SCD for DVT ppx on protonix Full code Exam Data for Last 24 hours Vital signs and Labs for Last 24 Hours: Temp Pulse Resp BP Pulse Ox O2 Del Method 98 F 75 18 133/57 L 96 Room Air 11/04/23 08:00 11/04/23 08:00 11/04/23 08:00 11/04/23 08:00 11/04/23 08:00 11/04/23 08:00 Laboratory Results - last 24 hr 11/03/23 20:18: WBC 9.0, RBC 4.14 L, Hgb 11.8 L, Hct 33.4 L, MCV 80.8 L, MCH 28.6, MCHC 35.4, RDW 14.3, Plt Count 325, MPV 8.6, Neut % (Auto) 67.1, Lymph % (Auto) 25.7, [place] % (Auto) 5.3, Eos % (Auto) 1.2, Baso % (Auto) 0.8, Neut # (Auto) 6.0, Lymph # (Auto) 2.3, [place] # (Auto) 0.5, Eos # (Auto) 0.1, Baso # (Auto) 0.1, Sodium 127 L, Potassium 2.3 L*, Chloride 94 L, Carbon Dioxide 20 L, Anion Gap 15.3 H, BUN 16, Creatinine 1.70 H, Estimated Creat Clear 39, Estimated GFR 31 L, Est GFR ( Amer) 37 L, Glucose 131 H, Calcium 8.3 L, Magnesium 1.2 L, Total Bilirubin 0.5, AST 164 H, ALT 77, Alkaline Phosphatase 96, Total Protein 7.1, Albumin 4.2, Globulin 2.9, Albumin/Globulin Ratio 1.4, TSH 1.60, Free T4 1.68 11/03/23 20:20: Urine Opiates Screen Positive H, Urine Methadone Screen Negative, Ur Barbituates Screen Negative, Ur Phencyclidine Scrn Negative, Ur Amphetamines Screen , U Benzodiazepines Scrn Negative, Urine Cocaine Screen Negative, U Marijuana (THC) Screen Positive H 11/04/23 06:50: WBC 5.3 D, RBC 3.97 L, Hgb 11.5 L, Hct 33.2 L, MCV 83.6, MCH 28.9, MCHC 34.6, RDW 14.4, Plt Count 294, MPV 8.2, Neut % (Auto) 59.7, Lymph % (Auto) 29.3, [place] % (Auto) 6.6, Eos % (Auto) 3.8, Baso % (Auto) 0.7, Neut # (Auto) 3.2, Lymph # (Auto) 1.5, [place] # (Auto) 0.4, Eos # (Auto) 0.2, Baso # (Auto) 0.0, Sodium 139, Potassium 3.4 L D, Chloride 106, Carbon Dioxide 24, Anion Gap 12.4, BUN 10 D, Creatinine 0.90 D, Estimated Creat Clear 72, Estimated GFR 64, Est GFR ( Amer) 78 D, Glucose 131 H, Calcium 8.2 L, Magnesium 2.7 H D, Total Bilirubin 0.3, AST 144 H, ALT 71, Alkaline Phosphatase 91, Total Protein 6.0 L, Albumin 3.5 D, Globulin 2.5, Albumin/Globulin Ratio 1.4 I & O for Last 24 hours: Intake & Output 11/01/23 11/02/23 11/03/23 11/04/23 23:59 23:59 23:59 23:59 Intake Total 2159 / 216 Output Total 0 / 0 Balance 2159 / 2159 Weight 66.
--- NOTE | 2023-11-07 13:56 | SW/DCPLANNER ---
Follow up phone call w/ this patient: patient stated that she is doing well at home and does not have any needs/questions at this time.
[2023-11-10 10:13] LABS: Amphetamine Positive (.); Amphetamine (GC/MS) 1875 ng/mL (Cutoff=500); Amphetamines Positive (.); Methamphetamine Positive (.); Methamphetamine (GC/MS) >3000 ng/mL (Cutoff=500)
== END 2023-11-04 11:21 | disposition home or self-care (01) ==
LOC: ER 19:57 → 2ND 22:30
PROVIDERS: Nurse Practitioner Family; Admitting Provider Internal Medicine; Emergency Provider Emergency Medicine; PCP Internal Medicine; Visit Provider Internal Medicine
DX: N17.9 Acute kidney failure, unspecified (principal); E87.1 Hypo-osmolality and hyponatremia; E83.42 Hypomagnesemia; E83.51 Hypocalcemia; E87.6 Hypokalemia; F19.921 Other psychoactive substance use, unspecified with intoxication with delirium; Z79.899 Other long term (current) drug therapy; B19.20 Unspecified viral hepatitis C without hepatic coma
CPT/HCPCS: 80053; 80305; 80324; 83735; 84439; 84443; 85025; 93005; 99291; G0378; J3475

== ENCOUNTER 2023-11-30 12:22 | Outpatient (CLI) | payer MEDICAID, SELFPAY ==
[2023-11-30 13:18] LABS: Amphetamine/Metha Screen,Urine Negative ng/ml (<1000)
[2023-11-30 13:19] LABS: Barbiturates Screen,Urine Negative ng/ml (<200); Benzodiazepines Screen,Urine Negative ng/ml (<200)
[2023-11-30 13:21] LABS: Cannabinoid Screen,Urine Positive ng/ml (<50); Cocaine Screen,Urine Negative ng/ml (<300)
[2023-11-30 13:22] LABS: Methadone Screen,Urine Negative ng/ml (<300); Opiate Screen,Urine Positive ng/ml (<300)
[2023-11-30 13:23] LABS: Phencyclidine Screen,Urine Negative ng/ml (<25)
== END 2023-11-30 23:59 ==
LOC: LAB.DROPOF 12:23
PROVIDERS: PCP Nurse Practitioner Family; Visit Provider Nurse Practitioner Family
DX: Z79.899 Other long term (current) drug therapy (principal); N39.0 Urinary tract infection, site not specified; B96.89 Other specified bacterial agents as the cause of diseases classified elsewhere
CPT/HCPCS: 80307; 87086

== ENCOUNTER 2023-12-21 13:47 | Emergency (ER) | payer MEDICAID, SELFPAY ==
[2023-12-21 14:15] VITALS: BP 138/84; PULSE 77; RESP 19; TEMP 36.9; O2SAT 98; BMI 23.3
--- NOTE | 2023-12-21 14:39 | ED_ITS ---
Discharge Plan Disposition Patient Disposition: Home, Self-Care Condition: Good Prescriptions Prescriptions: New ondansetron 4 mg tablet,disintegrating 4 mg PO Q8H PRN (Reason: nausea and vomiting) Qty: 10 0RF No Action (DME) Aerochamber Plus Flow-Vu Spacer See Rx Instructions .ROUTE .MEDSUPPLY Qty: 1 Rx Instructions: As directed Aimovig Autoinjector 140 mg/mL auto-injector 140 mg SQ QMONTH Qty: 1 5RF Hold Instructions: Doctor's Order albuterol sulfate [Proventil HFA] 90 mcg/actuation HFA aerosol inhaler 2 puff INHALATION Q6H Qty: 8.5 2RF Rx Instructions: administer with spacer clopidogrel 75 mg tablet See Rx Instructions .ROUTE .COMPLEX Qty: 90 2RF Dose Instruction: TAKE 1 TABLET BY MOUTH DAILY. Rx Instructions: TAKE 1 TABLET BY MOUTH DAILY. diclofenac sodium 1 % gel See Rx Instructions .ROUTE .COMPLEX Qty: 100 0RF Dose Instruction: APPLY 2 GRAMS TO AFFECTED AREA 4 TIMES A DAY Rx Instructions: APPLY 2 GRAMS TO AFFECTED AREA 4 TIMES A DAY escitalopram oxalate 20 mg tablet See Rx Instructions .ROUTE .COMPLEX Qty: 90 0RF Dose Instruction: TAKE 1 TABLET BY MOUTH ONCE DAILY Rx Instructions: TAKE 1 TABLET BY MOUTH ONCE DAILY fluticasone propionate 50 mcg/actuation spray,suspension See Rx Instructions .ROUTE .COMPLEX Qty: 16 1RF Dose Instruction: 1 SPRAY INTO EACH NOSTRIL EVERY DAY Rx Instructions: 1 SPRAY INTO EACH NOSTRIL EVERY DAY loratadine 10 mg tablet See Rx Instructions .ROUTE .COMPLEX Qty: 90 2RF Dose Instruction: TAKE ONE TABLET BY MOUTH EVERY DAY Rx Instructions: TAKE ONE TABLET BY MOUTH EVERY DAY nitroglycerin 0.4 mg tablet, sublingual See Rx Instructions .ROUTE .COMPLEX Qty: 25 10RF Dose Instruction: PLACE 1 TABLET UNDER THE TONGUE EVERY 5 (FIVE) MINUTES NEEDED FOR CHEST PAIN. Rx Instructions: PLACE 1 TABLET UNDER THE TONGUE EVERY 5 (FIVE) MINUTES NEEDED FOR CHEST PAIN. rosuvastatin 20 mg tablet See Rx Instructions .ROUTE .COMPLEX Qty: 90 2RF Dose Instruction: TAKE 1 TABLET BY MOUTH ONCE DAILY Rx Instructions: TAKE 1 TABLET BY MOUTH ONCE DAILY Vivitrol 380 mg suspension,extended rel recon See Rx Instructions .ROUTE .COMPLEX Rx Instructions: see rx trazodone 100 mg tablet See Rx Instructions .ROUTE .COMPLEX Qty: 30 2RF Dose Instruction: TAKE 1 TABLET BY MOUTH ONCE DAILY Rx Instructions: TAKE 1 TABLET BY MOUTH ONCE DAILY omeprazole 10 mg capsule,delayed release(DR/EC) 10 mg PO DAILY Referrals Follow up/Referrals: Quinton Calhoun DO [Primary Care Provider] - See instructions Activity Restrictions/Add. Instructions Additional Instructions/Restrictions: Drink extra fluids with and between meals. If you have difficulty drinking, try very small amounts of water or suck on ice chips. ? Avoid fruit juices, as these do not replace minerals and can actually increase diarrhea. ? Children and adults can use sports drinks to replenish electrolytes. Younger children and infants should use products formulated for children, like oral rehydration solutions. ? Eat food in small amounts and let your stomach recover. ? Get lots of rest. You may feel tired or weak. ? No greasy or fried foods for the next 24-48 hours BRAT diet Bananas Rice Apples and [place] ? Make sure to drink plenty of liquids ? Return if needed ? Straight to ER if any life threatening symptoms ? Zofran as prescribed ? You was given an outpatient order for diarrhea panel, please collect specimen and bring back to outpatient lab then call back to the [facility] or follow up with family doctor for results ? Follow up with family doctor in the next 48-72 hours if no improvement or any worsening of symptoms Your COVID test should be back in the next 24 hrs and available to alejandro on your [facility] My Health Portal if it is positive you must Quarantine for 5 days Clinical Impressions Clinical Impression: Viral syndrome Instructions Patient Instructions: DI for Viral Syndrome Discharge ED Provider: Nicole Talley [facility] [place] HPI General Stated complaint: congestion, ear pain adb pain Mode of Arrival: Ambulatory Source of Information: Patient Limitations: No Limitations Time Seen by Provider: 12/21/23 14:41 Description of Symptoms (Recalled from Triage Doc. by RN): Pt's symptoms are vomiting, diarrhea, cough, and body aches. HEENT Symptoms (Recalled from RN notes): Yes Resp Symptoms (Recalled from RN notes): No Skin Symptoms (Recalled from RN notes): No MS Symptoms (Recalled from RN notes): No Functional Status (Recalled from RN notes): n/a History of Present Illness Provider Complaint: Patient states that she was worried that she may have flu or COVID States that she has been having N/V on and off feeling achy and nasal congestion States that she had a little diarrhea this morning but not bad States that she wanted to get checked for flu and COVID to make sure she didnt have those since they are going around Related Data Home Medications Medication Instructions Recorded Confirmed inhalational spacing device #1 ea 08/02/23 11/30/23 (Aerochamber Plus Flow-Vu) naltrexone microspheres 380 mg See Rx Instructions .Route .COMPLEX 11/30/23 11/30/23 intramuscular suspension,extended release (Vivitrol) omeprazole 10 mg capsule,delayed 10 mg PO DAILY 12/21/23 12/21/23 release Previous Rx's Medication Instructions Recorded Aimovig Autoinjector 140 mg/mL 140 mg SQ QMONTH #1 mL 09/29/23 subcutaneous auto-injector (erenumab-aooe) albuterol sulfate 90 mcg/actuation 2 puff inhalation Q6H #8.5 grams 09/29/23 aerosol inhaler (Proventil HFA) clopidogrel 75 mg tablet See Rx Instructions .Route 09/29/23 .COMPLEX #90 tabs diclofenac sodium 1 % topical gel See Rx Instructions .Route 09/29/23 .COMPLEX #100 grams escitalopram oxalate 20 mg tablet See Rx Instructions .Route 09/29/23 .COMPLEX #90 tabs fluticasone propionate 50 See Rx Instructions .Route 09/29/23 mcg/actuation nasal .COMPLEX #16 caps spray,suspension loratadine 10 mg tablet See Rx Instructions .Route 09/29/23 .COMPLEX #90 tabs nitroglycerin 0.4 mg sublingual See Rx Instructions .Route 09/29/23 tablet .COMPLEX #25 ea rosuvastatin 20 mg tablet See Rx Instructions .Route 09/29/23 .COMPLEX #90 tabs trazodone 100 mg tablet See Rx Instructions .Route 11/30/23 .COMPLEX #30 tabs ondansetron 4 mg disintegrating 4 mg PO Q8H PRN nausea and 12/21/23 tablet vomiting #10 tabs Allergies Allergy/AdvReac Type Severity Reaction Status Date / Time aspirin Allergy Hives Verified 12/21/23 14:35 coconut Allergy Swelling Verified 12/21/23 14:35 of Lip/Tongue/Throat codeine Allergy Verified 12/21/23 14:35 egg Allergy Hives Verified 12/21/23 14:35 Fish Containing Products Allergy Swelling Verified 12/21/23 14:35 of Lip/Tongue/Throat milk AdvReac Verified 12/21/23 14:35 Worker's Comp Is this a Worker's Comp case?: No [facility] Disclaimer: The information contained in this section may have been updated after the patient was seen, as this information can be updated by other users. Medical History (Updated 12/21/23 @ 14:48 by Nicole Talley APRN) Abnormal drug screen Abnormal vaginal bleeding in postmenopausal patient Abscess of left hand Acute drug intoxication with delirium Acute hypokalemia Acute hyponatremia Acute kidney failure KHUSHBOO (acute kidney injury) Allergic rhinitis Altered mental status Anxiety Asthma Bradycardia Bronchitis Cellulitis of right hand Chronic lower back pain Colitis Constipation Contusion of chest wall Elevated liver enzymes Elevated troponin Gastroenteritis Gastroesophageal reflux disease Hx of hepatitis C Hypocalcemia Hypomagnesemia Infection of ear, external, right Lacunar infarction Migraine Nonspecific chest pain Overweight Pacemaker Pleurisy Rhabdomyolysis Sciatica Septic shock Severe sepsis with acute organ dysfunction Tobacco use UTI (urinary tract infection) Social History Smoking Status: Former smoker tobacco type: cigarettes second hand exposure: No alcohol intake: never substance use type: former substance user current occupational status: disabled Travel in the last 8 weeks: None household members: spouse ROS Obtained: Yes All systems reviewed & no additional complaints except as documented and Yes Systems reviewed as appropriate & no additional complaints except as documented Constitutional Constitutional: Reports system reviewed and no additional complaints, except as documented, Reports as per HPI, Reports body ache and Reports chills ENT Ears, Nose, Mouth, and Throat: Reports system reviewed and no additional complaints, except as documented, Reports as per HPI and Reports nasal congestion Cardiovascular Cardiovascular: Reports system reviewed and no additional complaints, except as documented and Reports as per HPI Respiratory Respiratory: Reports system reviewed and no additional complaints, except as documented, Reports as per HPI and Reports cough Gastrointestinal Gastrointestingal: Reports system reviewed and no additional complaints, except as documented, as per HPI, diarrhea (this morning), nausea and vomiting Physical Exam General General appearance: alert and in no apparent distress ENT ENT exam: Present mucous membranes moist and TM's normal bilaterally Expanded ENT Exam Nose exam: Absent sinus tenderness Respiratory Respiratory exam: Present normal lung sounds bilaterally; Absent respiratory distress or wheezes Cardiovascular Cardiovascular exam: Present regular rate, normal rhythm and normal heart sounds Abdominal Exam Abdominal exam: Present soft and normal bowel sounds; Absent distention or tenderness Neurological Exam Neurological exam: Present alert, oriented X3 and normal gait Medical Decision Making [place] Inquiry Pt receiving controlled substance: No [place] was queried for this patient: No Vital Signs: 12/21/23 14:15 Temperature 98.5 F Temperature Source Oral Pulse Rate [Right Radial] 77 Respiratory Rate 19 Blood Pressure [Right Arm] 138/84 Blood Pressure Mean [Right Arm] 102 Blood Pressure Source [Right Arm] Automatic Cuff Blood Pressure Position [Right Arm] Sitting 02 Sat by Pulse Oximetry 98 Oxygen Delivery Method Room Air Lab Data Lab results reviewed: Yes I reviewed the patient's lab results. Orders (Tests/Meds): ORDERS Category Date Time Status Covid-19 Nasal PCR ([facility]) Routine Lab 12/21/23 14:18 Received Medical Decision Narrative: Patient states that she has taken zofran with her current medications without complications or reactions
[2023-12-21 14:49] LABS: UTC Influenza A Antigen Negative (Negative); UTC Influenza B Antigen Negative (Negative)
[2023-12-21 15:03] VITALS: BP 138/84; PULSE 77; RESP 19; TEMP 36.9; O2SAT 98
== END 2023-12-21 15:03 | disposition home or self-care (01) ==
PROVIDERS: Emergency Provider Nurse Practitioner; PCP Internal Medicine
DX: R11.2 Nausea with vomiting, unspecified (principal); R09.81 Nasal congestion; R05.9 Cough, unspecified; M79.18 Myalgia, other site; B34.9 Viral infection, unspecified; K21.9 Gastro-esophageal reflux disease without esophagitis; J45.909 Unspecified asthma, uncomplicated; Z87.891 Personal history of nicotine dependence
CPT/HCPCS: 87635; 87804; 99212; 99214; G0463

== ENCOUNTER 2024-09-13 17:46 | Emergency (ER) | payer BC, SELFPAY ==
--- NOTE | 2024-09-13 17:54 | ED_ITS ---
<Statement entered by Mandy Mcclure DO - 09/13/24 20:09> I was consulted by the ELADIO, and we discussed the complexity of the problems being addressed. I approved the treatment and management plan for this patient's care in the emergency department, thus performing a substantive portion of the medical decision making. Mandy Mcclure DO Discharge Plan Disposition Patient Disposition: Home, Self-Care Condition: Good Prescriptions Prescriptions: New oxycodone 5 mg tablet 5 mg PO Q8H PRN (Reason: pain) Qty: 12 0RF No Action (DME) Aerochamber Plus Flow-Vu Spacer See Rx Instructions .ROUTE .MEDSUPPLY Qty: 1 Rx Instructions: As directed trazodone 150 mg tablet 150 mg PO HS Qty: 30 2RF Aimovig Autoinjector 140 mg/mL auto-injector 140 mg SQ QMONTH Qty: 1 5RF albuterol sulfate [Proventil HFA] 90 mcg/actuation HFA aerosol inhaler 2 puff INHALATION Q6H Qty: 8.5 2RF Rx Instructions: administer with spacer clopidogrel 75 mg tablet See Rx Instructions .ROUTE .COMPLEX Qty: 90 2RF Dose Instruction: TAKE 1 TABLET BY MOUTH DAILY. Rx Instructions: TAKE 1 TABLET BY MOUTH DAILY. diclofenac sodium 1 % gel See Rx Instructions .ROUTE .COMPLEX Qty: 100 0RF Dose Instruction: APPLY 2 GRAMS TO AFFECTED AREA 4 TIMES A DAY Rx Instructions: APPLY 2 GRAMS TO AFFECTED AREA 4 TIMES A DAY escitalopram oxalate 20 mg tablet See Rx Instructions .ROUTE .COMPLEX Qty: 90 0RF Dose Instruction: TAKE 1 TABLET BY MOUTH ONCE DAILY Rx Instructions: TAKE 1 TABLET BY MOUTH ONCE DAILY fluticasone propionate 50 mcg/actuation spray,suspension See Rx Instructions .ROUTE .COMPLEX Qty: 16 1RF Dose Instruction: 1 SPRAY INTO EACH NOSTRIL EVERY DAY Rx Instructions: 1 SPRAY INTO EACH NOSTRIL EVERY DAY loratadine 10 mg tablet See Rx Instructions .ROUTE .COMPLEX Qty: 90 2RF Dose Instruction: TAKE ONE TABLET BY MOUTH EVERY DAY Rx Instructions: TAKE ONE TABLET BY MOUTH EVERY DAY nitroglycerin 0.4 mg tablet, sublingual See Rx Instructions .ROUTE .COMPLEX Qty: 25 10RF Dose Instruction: PLACE 1 TABLET UNDER THE TONGUE EVERY 5 (FIVE) MINUTES NEEDED FOR CHEST PAIN. Rx Instructions: PLACE 1 TABLET UNDER THE TONGUE EVERY 5 (FIVE) MINUTES NEEDED FOR CHEST PAIN. rosuvastatin 20 mg tablet See Rx Instructions .ROUTE .COMPLEX Qty: 90 2RF Dose Instruction: TAKE 1 TABLET BY MOUTH ONCE DAILY Rx Instructions: TAKE 1 TABLET BY MOUTH ONCE DAILY omeprazole 10 mg capsule,delayed release(DR/EC) 10 mg PO DAILY ondansetron 4 mg tablet,disintegrating 4 mg PO Q8H PRN (Reason: nausea and vomiting) Qty: 10 0RF Referrals Follow up/Referrals: Provider,Referral, MD [Primary Care Provider] - See instructions Rachael Zuniga DPM [Staff Physician] - See instructions Activity Restrictions/Add. Instructions Additional Instructions/Restrictions: I have sent crutches. You need to be nonweightbearing until evaluation by podiatry. I have referred you to podiatry. Please call on Monday to make an appointment. Clinical Impressions Clinical Impression: Fracture of fifth metatarsal bone of right foot Qualifiers: Encounter type: initial encounter Fracture type: closed Fracture alignment: displaced Qualified Code(s): S92.351A - Displaced fracture of fifth metatarsal bone, right foot, initial encounter for closed fracture Print Language Print Language: Montserratian Discharge ED Provider: Mandy Mcclure General Adult HPI <KEISHA Vaughn - Last Filed: 09/13/24 19:57> General Chief complaint: Fall Stated complaint: AO 09/13/24 1730 injury right ankle,great left toe Time Seen by Provider: 09/13/24 17:53 History of Present Illness HPI narrative: Patient presents for evaluation of a fall. Patient was walking down her 17 step flight of stairs that she has to traverse getting to and from her apartment and she mated almost to the end but tripped on the second to last stair falling forward into the grass on her hands and knees. She reports that she heard a pop in her right foot. She also scraped the tip of her left toe. Patient does have a history of previous stroke and has significant balance issues as a result and should walk with a cane but mostly does not at her discretion. She denies striking her head or losing consciousness but reports abrasions to the left knee the left hallux right fifth metatarsal left hand and elbow. She has reduced range of motion in the right foot but no reduced range of motion or any other extremity. She does have bony deformity in the right foot at the base of the fifth metatarsal. She is neurovascular intact distally however in all 4 extremities. Related Data Home Medications ?Medication ?Instructions ?Recorded ?Confirmed inhalational spacing device #1 ea 08/02/23 11/30/23 (Aerochamber Plus Flow-Vu) omeprazole 10 mg capsule,delayed 10 mg PO DAILY 12/21/23 12/28/23 release Previous Rx's ?Medication ?Instructions ?Recorded Aimovig Autoinjector 140 mg/mL 140 mg SQ QMONTH #1 mL 09/29/23 subcutaneous auto-injector (erenumab-aooe) albuterol sulfate 90 mcg/actuation 2 puff inhalation Q6H #8.5 grams 09/29/23 aerosol inhaler (Proventil HFA) clopidogrel 75 mg tablet See Rx Instructions .Route 09/29/23 .COMPLEX #90 tabs diclofenac sodium 1 % topical gel See Rx Instructions .Route 09/29/23 .COMPLEX #100 grams escitalopram oxalate 20 mg tablet See Rx Instructions .Route 09/29/23 .COMPLEX #90 tabs fluticasone propionate 50 See Rx Instructions .Route 09/29/23 mcg/actuation nasal .COMPLEX #16 caps spray,suspension loratadine 10 mg tablet See Rx Instructions .Route 09/29/23 .COMPLEX #90 tabs nitroglycerin 0.4 mg sublingual See Rx Instructions .Route 09/29/23 tablet .COMPLEX #25 ea rosuvastatin 20 mg tablet See Rx Instructions .Route 09/29/23 .COMPLEX #90 tabs ondansetron 4 mg disintegrating 4 mg PO Q8H PRN nausea and 12/21/23 tablet vomiting #10 tabs trazodone 150 mg tablet 150 mg PO HS #30 tabs 12/28/23 oxycodone 5 mg tablet 5 mg PO Q8H PRN pain #12 tabs 09/13/24 Allergies Allergy/AdvReac Type Severity Reaction Status Date / Time aspirin Allergy Hives Verified 09/13/24 18:23 coconut Allergy Swelling Verified 09/13/24 18:23 of Lip/Tongue/Throat codeine Allergy Swelling Verified 09/13/24 18:23 of Lip/Tongue/Throat egg Allergy Hives Verified 09/13/24 18:23 Fish Containing Products Allergy Swelling Verified 09/13/24 18:23 of Lip/Tongue/Throat milk AdvReac Swelling Verified 09/13/24 18:23 of Lip/Tongue/Throat [facility] <KEISHA Vaughn - Last Filed: 09/13/24 19:57> [facility] Disclaimer: The information contained in this section may have been updated after the patient was seen, as this information can be updated by other users. Medical History (Updated 09/13/24 @ 19:20 by KEISHA Vaughn) Screening for breast cancer Hypocalcemia Hypomagnesemia Acute hyponatremia Acute hypokalemia Acute kidney failure Cellulitis of right hand Abscess of left hand Overweight Sciatica Tobacco use Chronic lower back pain Infection of ear, external, right Acute drug intoxication with delirium [id number] (acute kidney injury) Elevated liver enzymes Elevated troponin Rhabdomyolysis Lacunar infarction Pacemaker Abnormal drug screen UTI (urinary tract infection) Septic shock Severe sepsis with acute organ dysfunction Altered mental status Contusion of chest wall Anxiety Nonspecific chest pain Constipation Gastroesophageal reflux disease Asthma Allergic rhinitis Bronchitis Pleurisy Gastroenteritis Hx of hepatitis C Migraine Colitis Bradycardia Abnormal vaginal bleeding in postmenopausal patient Social History Smoking Status: Current every day smoker tobacco type: cigarettes second hand exposure: No alcohol intake: never substance use type: former substance user current occupational status: disabled Travel in the last 8 weeks: None household members: spouse Other Medical History Have you received the Flu Vaccine for this season: No Have you received the Pneumonia Vaccine: No <KEISHA Vaughn - Last Filed: 09/13/24 19:57> ROS Obtained: Yes Systems reviewed as appropriate & no additional complaints except as documented Physical Exam <KEISHA Vaughn - Last Filed: 09/13/24 19:57> General General appearance: alert and in no apparent distress Respiratory Respiratory exam: Present normal lung sounds bilaterally Cardiovascular Cardiovascular exam: Present regular rate Neurological Exam Neurological exam: Present alert Medical Decision Making <KEISHA Vaughn - Last Filed: 09/13/24 19:57> Medical Records Medical records reviewed: Yes I reviewed the patient's medical records. Screening: Per USPSTF and CDC recommendations, given the prevalence of disease in our region, it is our hospital?s policy to screen for HIV and viral Hepatitis for all patients aged 18 and over and those with ongoing risk factors. Wisam Inquiry Pt receiving controlled substance: No Vital Signs: 09/13/24 18:16 Temperature 97.8 F Temperature Source Oral Pulse Rate [Left] 78 Respiratory Rate 16 Blood Pressure [Right Arm] 165/85 H Blood Pressure Mean [Right Arm] 111 Blood Pressure Source [Right Arm] Automatic Cuff Blood Pressure Position [Right Arm] Sitting 02 Sat by Pulse Oximetry 100 Oxygen Delivery Method Room Air Orders (Tests/Meds): ED MEDICATIONS Discontinued Medications Generic Name Dose Route Start Last Admin Trade Name Freq PRN Reason Stop Dose Admin Acetaminophen 1,000 mg 09/13/24 18:19 09/13/24 19:00 Acetaminophen 500mg Tab PO 09/13/24 18:20 1,000 mg ONCE ONE Administration Morphine Sulfate 4 mg 09/13/24 19:40 Morphine 2mg/Ml Syringe IM 09/13/24 19:41 ONCE ONE Oxycodone HCl 5 mg 09/13/24 18:19 09/13/24 19:01 Oxycodone 5mg Immediate Release Tablet PO 09/13/24 18:20 5 mg ONCE ONE Administration Tetanus/Reduced Diphtheria/Acell Pertussis 0.5 ml 09/13/24 18:19 09/13/24 18:59 Tet/Diphth/Pert-Adult 0.5ml Syringe IM 09/13/24 18:20 0.5 ml .ONCE ONE Administration ORDERS Category Date Time Status Ankle XR - Left minimum 3 Views [XR ankle LT min 3V] Exams 09/13/24 18:19 Completed Stat Ankle XR -Right minimum 3 Views [XR ankle RT min 3V] Exams 09/13/24 18:19 Completed Stat Elbow XR left mininum 3 views [XR elbow LT min 3V] Stat Exams 09/13/24 18:19 Completed Femur XR left 2 views [XR femur LT 2V] Stat Exams 09/13/24 18:19 Completed Femur XR right 2 views [XR femur RT 2V] Stat Exams 09/13/24 18:19 Completed Foot XR left minimum 3 views [XR foot LT min 3V] Stat Exams 09/13/24 18:19 Completed Foot XR right minimum 3 views [XR foot RT min 3V] Stat Exams 09/13/24 18:19 Completed Forearm XR left 2 views [XR forearm LT 2V] Stat Exams 09/13/24 18:19 Completed Hand XR left minimum 3 views [XR hand LT min 3V] Stat Exams 09/13/24 18:19 Completed Knee XR left 3 views [XR knee LT 3V] Stat Exams 09/13/24 18:19 Completed Knee XR right 3 views [XR knee RT 3V] Stat Exams 09/13/24 18:19 Completed Tibia/fibula XR left 2 views [XR tibia fibula LT 2V] Exams 09/13/24 18:19 Completed Stat Tibia/fibula XR right 2 views [XR tibia fibula RT 2V] Exams 09/13/24 18:19 Completed Stat Wrist XR left minimum 3 views [XR wrist LT min 3V] Stat Exams 09/13/24 18:19 Completed Medical Decision Narrative: In summary patient is a 9-year-old female who presents to the emergency department for evaluation of a fall. Patient is hemodynamically stable upon arrival, febrile. Physical exam is remarkable for an abrasion to the tip of the left hallux but no bony deformity and full range of motion neurovascular intact distally, ecchymosis and bony deformity at the base of the fifth metatarsal of the right foot with tenderness to palpation but neurovascular tact distally. Abrasion to her bilateral knees, left greater than right, but again no bony deformity noted. She has full range of motion at the knees. Patient has abrasion to her heel of the left hand but no bony deformity and full range of motion, she also has an abrasion at her left elbow but again no palpable bony deformity and has full range of motion.. Differential diagnosis includes fracture versus contusion versus soft tissue injury etc. Initial workup will be conducted with plain film x-rays. Initial interventions include Tylenol and oxycodone but no NSAID this patient is on blood thinners. Initial workup reviewed by me shows the fracture at the base of the fifth metatarsal of the right foot and no other bony injury.. Given this patient is appropriate for discharge with nonweightbearing instructions, posterior short leg splint on the right foot, and crutches. She will be referred to podiatry for ongoing management. <Mandy Mcclure, DO - Last Filed: 09/13/24 20:10> Wisam Inquiry Pt receiving controlled substance: Yes Wisam was queried for this patient: Yes Risks and benefits of using a controlled substance: were discussed with pt by me Vital Signs: 09/13/24 18:16 Temperature 97.8 F Temperature Source Oral Pulse Rate [Left] 78 Respiratory Rate 16 Blood Pressure [Right Arm] 165/85 H Blood Pressure Mean [Right Arm] 111 Blood Pressure Source [Right Arm] Automatic Cuff Blood Pressure Position [Right Arm] Sitting 02 Sat by Pulse Oximetry 100 Oxygen Delivery Method Room Air Orders (Tests/Meds): ED MEDICATIONS Discontinued Medications Generic Name Dose Route Start Last Admin Trade Name Tariq PRN Reason Stop Dose Admin Acetaminophen 1,000 mg 09/13/24 18:19 09/13/24 19:00 Acetaminophen 500mg Tab PO 09/13/24 18:20 1,000 mg ONCE ONE Administration Morphine Sulfate 4 mg 09/13/24 19:40 Morphine 2mg/Ml Syringe IM 09/13/24 19:41 ONCE ONE Oxycodone HCl 5 mg 09/13/24 18:19 09/13/24 19:01 Oxycodone 5mg Immediate Release Tablet PO 09/13/24 18:20 5 mg ONCE ONE Administration Tetanus/Reduced Diphtheria/Acell Pertussis 0.5 ml 09/13/24 18:19 09/13/24 18:59 Tet/Diphth/Pert-Adult 0.5ml Syringe IM 09/13/24 18:20 0.5 ml .ONCE ONE Administration ORDERS Category Date Time Status Ankle XR - Left minimum 3 Views [XR ankle LT min 3V] Exams 09/13/24 18:19 Completed Stat Ankle XR -Right minimum 3 Views [XR ankle RT min 3V] Exams 09/13/24 18:19 Completed Stat Elbow XR left mininum 3 views [XR elbow LT min 3V] Stat Exams 09/13/24 18:19 Completed Femur XR left 2 views [XR femur LT 2V] Stat Exams 09/13/24 18:19 Completed Femur XR right 2 views [XR femur RT 2V] Stat Exams 09/13/24 18:19 Completed Foot XR left minimum 3 views [XR foot LT min 3V] Stat Exams 09/13/24 18:19 Completed Foot XR right minimum 3 views [XR foot RT min 3V] Stat Exams 09/13/24 18:19 Completed Forearm XR left 2 views [XR forearm LT 2V] Stat Exams 09/13/24 18:19 Completed Hand XR left minimum 3 views [XR hand LT min 3V] Stat Exams 09/13/24 18:19 Completed Knee XR left 3 views [XR knee LT 3V] Stat Exams 09/13/24 18:19 Completed Knee XR right 3 views [XR knee RT 3V] Stat Exams 09/13/24 18:19 Completed Tibia/fibula XR left 2 views [XR tibia fibula LT 2V] Exams 09/13/24 18:19 Completed Stat Tibia/fibula XR right 2 views [XR tibia fibula RT 2V] Exams 09/13/24 18:19 Completed Stat Wrist XR left minimum 3 views [XR wrist LT min 3V] Stat Exams 09/13/24 18:19 Completed Procedures <Mandy Mcclure DO - Last Filed: 09/13/24 20:10> Orthopedic Splinting/Casting Injury #1: Side: right Lower Extremity Injury Location: foot Lower Extremity Immobilizer: posterior splint and applied by nurse/dr cevallos Other Orthopedic Equipment: crutches Post Cast/Splinting Neuro Status: intact and no change Post Cast/Splinting Vasc Status: intact and no change Critical Care <KEISHA Vaughn - Last Filed: 09/13/24 19:57> Critical Care Time Critical Care Time: No
--- OUTSIDE RECORDS SUMMARY | 2024-09-13 18:08 | XMS_ITS ---
Author Organization [employer], [facility] Address [address] [place] [address] Care Team Providers Care Marketing Operations Associate Name Role Phone Leandro, Maritza Primary Care Provider Diana Leon [phone] Medications Medication SIG (Take, Route, Frequency, Duration) Notes Start Date End Date Status Montelukast Sodium 10 MG 1 tablet Orally Once a day Unknown Flunisolide 25 MCG/ACT (0.025%) 2 sprays in each nostril Nasally Twice a day Unknown Escitalopram Oxalate 20 MG 1 tablet Orally Once a day U nknown Advair Diskus 250-50 MCG/ACT 1 puff Inhalation Twice a day Unknown Vivitrol 380 MG 4 ml Intramuscular e very 4 weeks for 28 days Active Clopidogrel Bisulfate 75 MG 1 tablet Orally Once a day U nknown Loratadine 10 MG 1 tablet Orally Once a day Unknown ProAir HFA 108 (90 Base) MCG/ACT 1 puff as needed Inhalation every 4 hrs Unknown Rosuvastatin Calcium 20 MG 1 tablet Orally Once a day U nknown Aimovig 140 MG/ML as directed Subcutaneous Unknown Vital Signs Temperature 97.0 degrees Fahrenheit 07/31/20 24 Blood pressure systolic 124 mm Hg 07/31/20 24 Blood pressure diastolic 76 mm Hg 024 Heart Rate 61 /min 07/31/2024 Respiratory Rate 18 /min 07/31/2024 Height 62 in 07/31/2024 Weight 144 lbs 07/31/2024 BMI 26.34 kg/m2 07/31/2024 Oximetry 97 % 07/31/2024 Encounters Encounter Location Date Provider Diagnosis [address] [address] 07/31/2024 Diana Leon Uncomplicated opioid dependence F11.20 and Uncomplicated alcohol dependence F10.20 Assessments Encounter Date Diagnosis (ICD Code) Assessment Notes Treatment Notes Treatment Clinical Notes 07/31/2024 Uncomplicated opioid dependence (ICD-10 - F11.20) Risks and benefits of Vivitrol administration discussed with patient. Written consent obtained by PRS/ ARC staff. UDS obtained and confirmed to be negative for opiates. Oral challenge (naltrexone 50mg) administered previously and was tolerated well without adverse s/e or signs of withdrawal. Vivitrol injection administered by PRS staff, patient tolerated well without signs of adverse reaction or withdrawal. Patient advised to notify close family member/support system and any medical providers of Vivitrol use and keep documentation in wallet indicating Vivitrol use in case of emergency. RTC approx. 28 days for next injection. Pt understands to contact our office/PRS staff promptly for adverse s/e, questions, or concern for relapse. Continue with counseling/treatment for addiction and recovery. 07/31/2024 Uncomplicated alcohol dependence (ICD-10 - F10.20) Risks and benefits of Vivitrol administration discussed with patient. Written consent obtained by PRS/ ARC staff. UDS obtained and confirmed to be negative for opiates. Oral challenge (naltrexone 50mg) administered previously; tolerated well without adverse s/e or signs of withdrawal. Vivitrol injection administered by PRS staff, patient tolerated well without signs of adverse reaction or withdrawal. Patient advised to notify close family member/support system and any medical providers of Vivitrol use and keep documentation in wallet indicating Vivitrol use in case of emergency. RTC approx. 28 days for next injection. Pt understands to contact our office/PRS promptly for adverse s/e, questions, or concern for relapse. Continue with counseling/treatment for addiction and recovery. Plan Of Treatment Treatment Notes Assessment Notes Uncomplicated opioid dependence Risks and benefits of Vivitrol administration discussed with patient. Written consent obtained by PRS/ ARC staff. UDS obtained and confirmed to be negative for opiates. Oral challenge (naltrexone 50mg) administered previously and was tolerated well without adverse s/e or signs of withdrawal. Vivitrol injection administered by PRS staff, patient tolerated well without signs of adverse reaction or withdrawal. Patient advised to notify close family member/support system and any medical providers of Vivitrol use and keep documentation in wallet indicating Vivitrol use in case of emergency. RTC approx. 28 days for next injection. Pt understands to contact our office/PRS staff promptly for adverse s/e, questions, or concern for relapse. Continue with counseling/treatment for addiction and recovery. Uncomplicated alcohol dependence Risks and benefits of Vivitrol administration discussed with patient. Written consent obtained by PRS/ ARC staff. UDS obtained and confirmed to be negative for opiates. Oral challenge (naltrexone 50mg) administered previously; tolerated well without adverse s/e or signs of withdrawal. Vivitrol injection administered by PRS staff, patient tolerated well without signs of adverse reaction or withdrawal. Patient advised to notify close family member/support system and any medical providers of Vivitrol use and keep documentation in wallet indicating Vivitrol use in case of emergency. RTC approx. 28 days for next injection. Pt understands to contact our office/PRS promptly for adverse s/e, questions, or concern for relapse. Continue with counseling/treatment for addiction and recovery. Next Appt Details Follow Up: 4 Weeks, Reason: Progress Notes * Ian JOSEPHOB:1965 ( 59 yo F)Acc No.[id number]:07/31/2024 Patient:?Brandi JOSEPH Provider:?Diana Leon APRN :1965???Age:59 Y???Sex:Female D ate:07/31/2024 Address:[address] [place] [address] [id number] Pcp:Maritza Reeves Subjective: * Chief Complaints: * ??? * HPI: ???Constitutional:? *This visit was visit was conducted via telehealth using real-time video conferencing technology. *The pt is currently receiving care at _[facility]. *This patient reports current active _alcohol and opiate_ dependence. *SHe expects to receive a Vivitrol injection today. *Last substance use was 02/24/24 per patient report. *_SHe_ has received a previous vivitrol injection. Today's injection will be the patient's _16th_dose. *Most recent Vivitrol injection was given _07/01/24. Patient _denies_ breakthrough cravings since the injection. *The patient [facility] and was found to be appropriate to receive Vivitrol injection today.? The patient denies any withdrawal symptoms or other concerns today. * ROS:?General/Constitutional:?Patient denies?change in appetite , fatigue , fever , headache.?Respiratory:?Patient denies?cough , shortness of breath.?Cardiovascular:?Patient denies?chest pain , dizziness , fluid accumulation in the legs , palpitations.?Gastrointestinal:?Patient denies?abdominal pain , change in bowel habits , nausea , vomiting.?Psychiatric:?Patient denies?auditory/visual hallucinations , suicidal thoughts.?Patient complaining of?substance abuse , anxiety , depression?, difficulty sleeping.? * Medical History:? * Surgical History:? * Hospitalization/Major Diagno stic Procedure:? * Medications:?TakingVivitrol 380 MG Suspension Reconstituted 4 ml Intramuscular every 4 weeks Taking Vivitrol 380 MG Suspension Reconstituted 4 ml Intramuscular every 4 weeks UnknownAimovig 140 MG/ML Solution Auto-injector as directed Subcutaneous Loratadine 10 MG Tablet 1 tablet Orally Once a day ProAir HFA 108 (90 Base) MCG/ACT Aerosol Solution 1 puff as needed Inhalation every 4 hrs Rosuvastatin Calcium 20 MG Tablet 1 tablet Orally Once a day Clopidogrel Bisulfate 75 MG Tablet 1 tablet Orally Once a day Montelukast Sodium 10 MG Tablet 1 tablet Orally Once a day Flunisolide 25 MCG/ACT (0.025%) Solution 2 sprays in each nostril Nasally Twice a day Escitalopram Oxalate 20 MG Tablet 1 tablet Orally Once a day Advair Diskus 250-50 MCG/ACT Aerosol Powder Breath Activated 1 puff Inhalation Twice a day Unknown Aimovig 140 MG/ML Solution Auto-injector as directed Subcutaneous Unknown Loratadine 10 MG Tablet 1 tablet Orally Once a day Unknown ProAir HFA 108 (90 Base) MCG/ACT Aerosol Solution 1 puff as needed Inhalation every 4 hrs Unknown Rosuvastatin Calcium 20 MG Tablet 1 tablet Orally Once a day Unknown Clopidogrel Bisulfate 75 MG Tablet 1 tablet Orally Once a day Unknown Montelukast Sodium 10 MG Tablet 1 tablet Orally Once a day Unknown Flunisolide 25 MCG/ACT (0.025%) Solution 2 sprays in each nostril Nasally Twice a day Unknown Escitalopram Oxalate 20 MG Tablet 1 tablet Orally Once a day Unknown Advair Diskus 250-50 MCG/ACT Aerosol Powder Breath Activated 1 puff Inhalation Twice a day Objective: * Vitals:?Temp:97.0F, HR:61/mi n, BP:124/76mm Hg, Wt:144lbs, BMI:26.34Index, Ht: 62 in, RR:18/min, Oxygen sat %:97%, Ht-cm: 157.48 cm, Wt-k.32 kg. * Examination: ???General Examination: ?GENERAL APPEARANCE:?Physical exam documented is limited to observations made by the provider during realtime video conference visit. , alert , appears to be in no acute distress , cooperative , well-appearing.?HEAD:?normocephalic.?EYES:?BOTH EYES , extraocular movement intact (EOMI) , sclera non- icteric.?EARS:?gross hearing normal.?SKIN:?visible skin appears to have normal color and no rashes are noted.?LUNGS:?no obvious dyspnea.?NEUROLOGIC:?nonfocal.?PSYCH:?alert, oriented , good eye contact , speech clear , thought process logical, goal directed.? Assessment: * Assessment: 1.?Uncomplicated opioid depe ndence - F11.20 (Primary)???2.?Uncomplicated alcohol dependence - F10.20??? Plan: * Treatment: 2.?Uncomplicated alcohol dep endence? Notes: Risks and benefits of Vivitrol administration discussed with patient. Written consent obtained by PRS/ ARC staff. UDS obtained and confirmed to be negative for opiates. Oral challenge (naltrexone 50mg) administered previously; tolerated well without adverse s/e or signs of withdrawal. Vivitrol injection administered by PRS staff, patient tolerated well without signs of adverse reaction or withdrawal. Patient advised to notify close family member/support system and any medical providers of Vivitrol use and keep documentation in wallet indicating Vivitrol use in case of emergency. RTC approx. 28 days for next injection. Pt understands to contact our office/PRS promptly for adverse s/e, questions, or concern for relapse. Continue with counseling/treatment for addiction and recovery.?? * Procedure Codes:? * Follow Up:?4 Weeks * Images: Billing Information: * Visit Code:? 12156 Office Visit, Est Pt., Level 2. * Procedure Codes:? * Sign off status: Completed Visit Status:?CHK (Check Out ) true * Provider:?Diana Leon APRN Date:? 07/31/2024 Generated for Isael alston/Casey/eTransmitting on:?09/13/2024 06:07 PM EDT History and Physical Notes * Examination Category Sub-Category Detail Notes General Examination GENERAL APPEARANCE: Physical exam documented is limited to observations made by the provider during realtime video conference visit. , alert , appears to be in no acute distress , cooperative , well-appearing HEAD: normocephalic EYES: BOTH EYES , extraocu lar movement intact (EOMI) , sclera non-icteric EARS: gross hearing normal LUNGS: no obvious dyspnea NEUROLOGIC: nonfocal SKIN: visible skin appears to have normal color and no rashes are noted PSYCH: alert, oriented , go od eye contact , speech clear , thought process logical, goal directed
--- OUTSIDE RECORDS SUMMARY | 2024-09-13 18:08 | XMS_ITS ---
Author Organization [facility] Address [address] [facility] [place] [address] Care Team Providers Care Area Forester Name Role Phone Leandro, Maritza Primary Care Provider REASON FOR VISIT vivitrol inj Medications Medication SIG (Take, Route, Fr equency, Duration) Notes Start Date End Date Status Vivitrol 380 MG 4 ml Intramuscular e very 4 weeks for 28 days Active Encounters Encounter Location Date Provider Diagnosis [address] [address] 06/26/2024 Maritza Reeves Substance use disorder F19.90 Assessments Encounter Date Diagnosis (ICD Code) Assessment Notes Treatment Notes Treatment Clinical Notes 06/26/2024 Substance use disorder (ICD-10 - F19.90) Plan Of Treatment Medication Medication Name Sig Start Date Stop Date Notes Vivitrol 380 MG 4 ml Intramuscular e very 4 weeks for 28 days Progress Notes * Ian JOSEPHOB:1965 ( 58 yo F)Acc No.[id number]:06/26/2024 Patient:?Brandi JOSEPH :1965???Age:58 Y???Sex:Female Address:[place] [address] * Refills? Refill Vivitrol Suspension Reconstituted, 380 MG, Intramuscular, 1, 4 ml, every 4 weeks, 28 days, Refills=5 * true * Date:? Generated for Printi ng/Faxing/eTransmitting on:?09/13/2024 06:08 PM EDT
--- OUTSIDE RECORDS SUMMARY | 2024-09-13 18:08 | XMS_ITS | Patient Health Record ---
Author Organization [facility] Address [address] [place] [address] Care Team Providers Care Item Repair Manager Name Role Phone Maritza Reeves Primary Care Provider Diana Leon Adalid [phone] Allergies Allergen (clinical drug ingredient) Drug/Non Drug Allergy documented on EMR Reaction Allergy Type Onset Date Status aspirin Aspirin Unknown Drug Allergy Active Reason For Referral No Information Medications Medication SIG (Take, Route, Frequency, Duration) Notes Start Date End Date Status Clopidogrel Bisulfate 75 MG 1 tablet Orally Once a day U nknown Montelukast Sodium 10 MG 1 tablet Orally [...] very 4 weeks for 28 days Active Aimovig 140 MG/ML as directed Subcutaneous Unknown Social History Tobacco Use: Social History Observation Description Date Details (start date - stop date) Unknown if ever smoked NA - NA Tobacco Use/Smoking Question Answer Notes Are you a unknown if ever smoked Problems Problem Type SNOMED Code ICD Code Onset Dates Problem Status W/U Status Risk Notes Problem Alcohol dependence (64770094) Uncomplicated alcohol dependence (F10.20) Active confirmed Problem Opioid dependence (72171959) Uncomplicated opioid dependence (F11.20) Active confirmed Vital Signs Heart Rate 61 /min 07/31/2024 Temperature 97.0 degrees Fahrenheit 07/31/2024 Respiratory Rate 18 /min 07/31/2024 Oximetry 97 % 07/31/2024 Blood pressure diastolic 76 mm Hg 07/31/2024 Height 62 in 07/31/2024 Blood pressure systolic 124 mm Hg 07/31/2024 Weight 144 lbs 07/31/2024 BMI 26.34 kg/m2 07/31/2024 Encounters Encounter Location Date Provider Diagnosis [address] [facility] [place] [address] 03/08/2024 Maritza Reeves Uncomplicated opioid dependence F11.[address] [facility] [place] [address] 06/05/2024 Dianaalok Leon Uncomplicated opioid dependence F11.20 and Uncomplicated alcohol dependence F10.[address] [place] [address] 07/01/2024 Maritza Reeves Uncomplicated opioid dependence F11.20 and Uncomplicated alcohol dependence F10.[address] [place] [address] 07/31/2024 Dianaalok Norwoodd Uncomplicated opioid dependence F11.20 and Uncomplicated alcohol dependence F10.[address] [place] [address] 06/26/2024 Maritza Reeves Substance use disorder F19.90 Assessments Encounter Date Diagnosis (ICD Code) Assessment Notes Treatment Notes Treatment Clinical Notes 03/08/2024 Uncomplicated opioid dependence (ICD-10 - F11.20) Risks [...] Continue with counseling/treatment for addiction and recovery. 06/05/2024 Uncomplicated opioid dependence (ICD-10 - F11.20) Risks [...] Continue with counseling/treatment for addiction and recovery. 06/26/2024 Substance use disorder (ICD-10 - F19.90) 07/01/2024 Uncomplicated opioid dependence (ICD-10 - F11.20) Risks [...] counseling/treatment for addiction and recovery. 07/31/2024 Uncomplicated opioid dependence (ICD-10 - F11.20) [...] Continue with counseling/treatment for addiction and recovery. 07/01/2024 Uncomplicated alcohol dependence (ICD-10 - F10.20) Risks [...] Continue with counseling/treatment for addiction and recovery. 06/05/2024 Uncomplicated alcohol dependence (ICD-10 - F10.20) Risks [...] for addiction and recovery. Plan Of Treatment No Information Insurance Providers Payer Name Payer Address Payer Phone Subscriber Number Group Number Insured Name Patient Relationship to Insured Coverage Start Date Coverage End Date [employer] [address] [address] [place] [address] [id number] Brandi Joseph Self - patient is the insured 2 Medical (General) History Medical History History ICD Code stroke hepatitis C PTSD anxiety depression pacemaker hyperlipidemia hypertension bipolar disorder Surgical History Surgery Date(Month/Year) section x2 pace maker Hospitalization History Reason Date(Month/Year) childbirth
--- OUTSIDE RECORDS SUMMARY | 2024-09-13 18:08 | XMS_ITS ---
Author Organization [facility] Address [address] [facility] [place] [address] Care Team Providers Care Business Support Manager Name Role Phone Joseph Reeveselle Primary Care Provider REASON FOR VISIT Vivitrol Inj Medications Medication SIG (Take, Route, Frequency, Duration) Notes Start Date End Date Status Montelukast Sodium 10 MG 1 tablet Orally Once a day Unknown Flunisolide 25 MCG/ACT (0.025%) 2 sprays in each nostril Nasally Twice a day Unknown Escitalopram Oxalate 20 MG 1 tablet Orally Once a day U nknown Advair Diskus 250-50 MCG/ACT 1 puff Inhalation Twice a day Unknown Clopidogrel Bisulfate 75 MG 1 tablet Orally Once a day U nknown Vivitrol 380 MG 4 ml Intramuscular e very 4 weeks for 28 days Active Aimovig 140 MG/ML as directed Subcutaneous Unknown Loratadine 10 MG 1 tablet Orally Once a day Unknown ProAir HFA 108 (90 Base) MCG/ACT 1 puff as needed Inhalation every 4 hrs Unknown Rosuvastatin Calcium 20 MG 1 tablet Orally Once a day U nknown Encounters Encounter Location Date Provider Diagnosis [address] [address] 07/01/2024 Maritza Reeves Uncomplicated opioid dependence F11.20 and Uncomplicated alcohol dependence F10.20 Assessments Encounter Date Diagnosis (ICD Code) Assessment Notes Treatment Notes Treatment Clinical Notes 07/01/2024 Uncomplicated opioid dependence (ICD-10 - F11.20) [...] Up: 4 Weeks, Reason: Progress Notes * Naomi JOSEPHanDOB:1965 ( 58 yo F)Acc No.[id number]:07/01/2024 Patient:?Brandi JOSEPH Provider:?Maritza Reeves APRN :1965???Age:58 Y???Sex:Female D ate:07/01/2024 Address:[address] [place], [place] [id number] Subjective: * Chief Complaints: * ???Vivitrol Inj * HPI: ???Constitutional:? *This visit was visit was conducted via telehealth using real-time video conferencing technology. *The pt is currently receiving care at [facility]. *This patient reports current active _alcohol and opiate_ dependence. *she expects to receive a Vivitrol injection today. *Last substance use was 02/24/2024 per patient report. *_she_ has received a previous vivitrol injection. Today's injection will be the patient's _15th_dose. *Most recent Vivitrol injection was given _06/05/2024_. Patient _denies_ breakthrough cravings since the injection. *The patient has had urine drug testing performed at the in facility and was found to be appropriate [...] puff Inhalation Twice a day Objective: * Vitals:? * Examination: ???General Examination: ?GENERAL APPEARANCE:?Physical exam [...] * Images: Billing Information: * Visit Code:? 86804 Office Visit, Est Pt., Level 2. * Procedure Codes:? * Electronically signed by [facility] olamide Reeves APRN on 07/02/2024 at 02:36 PM EDT Sign off status: Completed Visit Status:?CHK (Check Out ) true * Provider:?Maritza Reeves APRN Date:? Generated for Isael alston/Casey/eTransmitting on:?09/13/2024 06:07 PM [...]
[2024-09-13 18:16] VITALS: BP 165/85; PULSE 78; RESP 16; TEMP 36.6; O2SAT 100; BMI 25.1
--- NOTE | 2024-09-13 18:19 | XR_ITS ---
PROCEDURE INFORMATION: Exam: XR Left Elbow Exam date and time: 09/13/2024 6:30 PM Age: 59 years old Clinical indication: Injury or trauma; Fall; Blunt trauma (contusions or hematomas); Elbow; Bilateral TECHNIQUE: Imaging protocol: Radiologic exam of the left elbow. Views: 3 or more views. COMPARISON: CR XR WRIST LT MIN 3V 09/13/2024 6:30 PM FINDINGS: Bones/joints: Normal. Soft tissues: Normal. IMPRESSION: No acute findings.
--- NOTE | 2024-09-13 18:19 | XR_ITS ---
PROCEDURE INFORMATION: Exam: XR Right Ankle Exam date and time: 09/13/2024 6:30 PM Age: 59 years old Clinical indication: Injury or trauma; Fall; Blunt trauma; Ankle; Bilateral TECHNIQUE: Imaging protocol: Radiologic exam of the right ankle. Views: 3 or more views. COMPARISON: CR XR TIBIA FIBULA RT 2V 09/13/2024 6:30 PM FINDINGS: Bones/joints: Previously demonstrated fracture base of the 5th metatarsal again identified. Soft tissues: Soft tissue swelling anterior aspect of the ankle joint. IMPRESSION: No evidence of acute osseous injury involving the ankle joint.
--- NOTE | 2024-09-13 18:19 | XR_ITS ---
PROCEDURE INFORMATION: Exam: XR Left Knee Exam date and time: 09/13/2024 6:30 PM Age: 59 years old Clinical indication: Injury or trauma; Fall; Blunt trauma; Knee; Bilateral TECHNIQUE: Imaging protocol: Radiologic exam of the left knee. Views: 3 views. COMPARISON: DX XR KNEE LT 4V 06/10/2020 1:46 PM FINDINGS: Bones/joints: Moderate degenerative changes medial knee compartment. Soft tissues: Soft tissue swelling in the expected region of the medial malleolus. IMPRESSION: No evidence of acute osseous injury
--- NOTE | 2024-09-13 18:19 | XR_ITS ---
PROCEDURE INFORMATION: Exam: XR Left Tibia and Fibula Exam date and time: 09/13/2024 6:30 PM Age: 59 years old Clinical indication: Injury or trauma; Fall; Blunt trauma; Knee; Bilateral TECHNIQUE: Imaging protocol: Radiologic exam of the left tibia and fibula. Views: 2 views. COMPARISON: CR XR ANKLE LT MIN 3V 09/13/2024 6:30 PM FINDINGS: Bones/joints: Moderately severe degenerative arthritis medial knee compartment Soft tissues: Normal. IMPRESSION: No evidence of acute osseous injury.
--- NOTE | 2024-09-13 18:19 | XR_ITS ---
PROCEDURE INFORMATION: Exam: XR Left Forearm Exam date and time: 09/13/2024 6:30 PM Age: 59 years old Clinical indication: Injury or trauma; Fall; Blunt trauma (contusions or hematomas); Elbow; Bilateral TECHNIQUE: Imaging protocol: Radiologic exam of the left forearm. Views: 2 views. COMPARISON: CR XR WRIST LT MIN 3V 09/13/2024 6:30 PM FINDINGS: Bones/joints: Normal. Soft tissues: Normal. IMPRESSION: No acute findings.
--- NOTE | 2024-09-13 18:19 | XR_ITS ---
PROCEDURE INFORMATION: Exam: XR Left Hand Exam date and time: 09/13/2024 6:30 PM Age: 59 years old Clinical indication: Injury or trauma; Fall; Blunt trauma (contusions or hematomas); Hand; Bilateral TECHNIQUE: Imaging protocol: Radiologic exam of the left hand. Views: 3 or more views. COMPARISON: CR XR WRIST LT MIN 3V 09/13/2024 6:30 PM FINDINGS: Bones/joints: Normal. Soft tissues: Normal. IMPRESSION: No acute findings.
--- NOTE | 2024-09-13 18:19 | XR_ITS ---
PROCEDURE INFORMATION: Exam: XR Right Femur Exam date and time: 09/13/2024 6:30 PM Age: 59 years old Clinical indication: Injury or trauma; Fall; Blunt trauma; Thigh or upper leg; Bilateral TECHNIQUE: Imaging protocol: Radiologic exam of the right femur. Views: 2 views. COMPARISON: CR XR KNEE RT 3V 09/13/2024 6:30 PM FINDINGS: Bones/joints: Unremarkable. No acute fracture. Soft tissues: Unremarkable. IMPRESSION: No acute findings.
--- NOTE | 2024-09-13 18:19 | XR_ITS ---
PROCEDURE INFORMATION: Exam: XR Right Tibia and Fibula Exam date and time: 09/13/2024 6:30 PM Age: 59 years old Clinical indication: Injury or trauma; Fall; Blunt trauma; Knee; Bilateral TECHNIQUE: Imaging protocol: Radiologic exam of the right tibia and fibula. Views: 2 views. COMPARISON: CR XR TIBIA FIBULA RT 2V 09/13/2024 6:30 PM FINDINGS: Bones/joints: Normal. Soft tissues: Normal. IMPRESSION: No acute findings.
--- NOTE | 2024-09-13 18:19 | XR_ITS ---
PROCEDURE INFORMATION: Exam: XR Right Foot Exam date and time: 09/13/2024 6:30 PM Age: 59 years old Clinical indication: Injury or trauma; Fall; Blunt trauma; Foot; Bilateral TECHNIQUE: Imaging protocol: Radiologic exam of the right foot. Views: 3 or more views. COMPARISON: CR XR FOOT RT MIN 3V 09/13/2024 6:30 PM FINDINGS: Bones/joints: Nondisplaced fracture base of the 5th metatarsal. Soft tissues: Associated soft tissue swelling. IMPRESSION: Nondisplaced fracture base of the 5th metatarsal.
--- NOTE | 2024-09-13 18:19 | XR_ITS ---
PROCEDURE INFORMATION: Exam: XR Left Ankle Exam date and time: 09/13/2024 6:30 PM Age: 59 years old Clinical indication: Injury or trauma; Fall; Blunt trauma; Ankle; Bilateral TECHNIQUE: Imaging protocol: Radiologic exam of the left ankle. Views: 3 or more views. COMPARISON: CR XR TIBIA FIBULA LT 2V 09/13/2024 6:30 PM FINDINGS: Bones/joints: Normal. Soft tissues: Normal. IMPRESSION: No acute findings.
--- NOTE | 2024-09-13 18:19 | XR_ITS ---
PROCEDURE INFORMATION: Exam: XR Left Wrist Exam date and time: 09/13/2024 6:30 PM Age: 59 years old Clinical indication: Injury or trauma; Fall; Blunt trauma (contusions or hematomas); Wrist; Bilateral TECHNIQUE: Imaging protocol: Radiologic exam of the left wrist. Views: 3 or more views. COMPARISON: CR XR HAND LT MIN 3V 09/13/2024 6:30 PM FINDINGS: Bones/joints: Normal. Soft tissues: Normal. IMPRESSION: No acute findings.
--- NOTE | 2024-09-13 18:19 | XR_ITS ---
PROCEDURE INFORMATION: Exam: XR Right Knee Exam date and time: 09/13/2024 6:30 PM Age: 59 years old Clinical indication: Injury or trauma; Fall; Blunt trauma; Knee; Bilateral TECHNIQUE: Imaging protocol: Radiologic exam of the right knee. Views: 3 views. COMPARISON: CR XR TIBIA FIBULA RT 2V 09/13/2024 6:30 PM FINDINGS: Bones/joints: Normal. Soft tissues: Normal. IMPRESSION: No acute findings.
--- NOTE | 2024-09-13 18:19 | XR_ITS ---
PROCEDURE INFORMATION: Exam: XR Left Foot Exam date and time: 09/13/2024 6:30 PM Age: 59 years old Clinical indication: Injury or trauma; Fall; Blunt trauma; Foot; Bilateral TECHNIQUE: Imaging protocol: Radiologic exam of the left foot. Views: 3 or more views. COMPARISON: CR XR FOOT LT MIN 3V 09/13/2024 6:30 PM FINDINGS: Bones/joints: Cortical remodeling left 5th metatarsal compatible with posttraumatic change. Soft tissues: Normal. IMPRESSION: No evidence of acute osseous injury.
--- NOTE | 2024-09-13 18:19 | XR_ITS ---
PROCEDURE INFORMATION: Exam: XR Left Femur Exam date and time: 09/13/2024 6:30 PM Age: 59 years old Clinical indication: Injury or trauma; Fall; Blunt trauma; Thigh or upper leg; Bilateral TECHNIQUE: Imaging protocol: Radiologic exam of the left femur. Views: 2 views. COMPARISON: CR XR FEMUR LT 2V 09/13/2024 6:30 PM FINDINGS: Bones/joints: Unremarkable. No acute fracture. Soft tissues: Mild soft tissue swelling in the expected region of the medial malleolus. IMPRESSION: No evidence of acute osseous injury.
--- NOTE | 2024-09-13 18:42 | PC.NURSE ---
XR AT BEDSIDE
[2024-09-13] MEDS: TET/DIPHTH/PERT-ADULT 0.5ML SYRINGE 0.5 ML IM (18:59)
[2024-09-13] MEDS: ACETAMINOPHEN 500MG TAB 1000 MG PO (19:00)
[2024-09-13] MEDS: OXYCODONE 5MG IMMEDIATE RELEASE TABLET 5 MG PO (19:01)
[2024-09-13 20:22] VITALS: BP 152/90; PULSE 81; RESP 18; TEMP 36.6; O2SAT 98
== END 2024-09-13 20:30 | disposition home or self-care (01) ==
PROVIDERS: Emergency Provider Emergency Medicine
DX: S92.351A Displaced fracture of fifth metatarsal bone, right foot, initial encounter for closed fracture (principal); W10.8XXA Fall (on) (from) other stairs and steps, initial encounter
CPT/HCPCS: 73080; 73090; 73110; 73130; 73552; 73562; 73590; 73610; 73630; 90471; 90715; 96372; 99284